=== PATIENT | female | born 1945 | race Native Hawaiian/Other Pacific Islander ===

== ENCOUNTER 2018-09-27 09:04 | Outpatient (CLI) | payer MEDICAID ==
--- NOTE | 2018-10-01 08:09 | DEXA Report ---
Reason: POST MENOPAUSAL Procedure Date: 09/27/2018 Accession Number: [id number] / [id number] Procedure: DEX - Dexa Spine and/or Hip CPT Code: FULL RESULT: EXAM: Dexa Spine and/or Hip DATE: 09/27/2018 9:29 AM CLINICAL HISTORY: POST MENOPAUSAL TECHNIQUE: Dual energy x-ray absorptiometry (DXA) was performed on a Nextance System. Regions measured are the AP Spine, femoral neck, and if needed forearm. COMPARISON: None. In accordance with the International Society for Clinical Densitometry (ISCD) guidelines, data from previous exams may be reanalyzed using current recommendations and techniques. This is done to allow a more accurate basis for comparison with the current study. FINDINGS: The data for the lumbar spine is as follows: BMD (g/cm/cm) T-SCORE Z-SCORE REGION L1 0.775 -3.0 L2 0.772 -3.6 L3 1.020 -1.5 L4 1.087 -0.9 TOTAL 0.920 -2.2 NOTE: All evaluable vertebrae are used for classification The data for the hip is as follows: BMD (g/cm/cm) T-SCORE Z-SCORE REGION Neck 0.699 -2.4 TOTAL 0.622 -3.1 NOTE: The femoral neck or total proximal femur, whichever is lowest, is used for classification. * Denotes significant change at the 95% confidence level. Denotes dissimilar scan types or analysis methods. IMPRESSION: THE WHO CLASSIFICATION BASED ON THE INTERNATIONAL REFERENCE STANDARD IS OSTEOPOROSIS. THE FRACTURE RISK IS HIGH. RECOMMENDATION: Patients with diagnosis of osteoporosis or osteopenia should have regular bone mineral density assessment. For those eligible for Medicare, routine testing is allowed once every 2 years. Testing frequency can be increased for patients who have rapidly progressing disease or for those who are receiving medical therapy to restore bone mass. COMMENT: World Health Organization (WHO) definitions for osteoporosis and osteopenia: NORMAL BMD: T-score at -1.0 or higher, fracture risk is low OSTEOPENIA BMD: T-score between -1.0 and -2.5, fracture risk is increased. OSTEOPOROSIS BMD: T-score at -2.5 or lower, fracture risk is high. National Osteoporosis Foundation recommends: 1. Obtain adequate dietary calcium (at least 1200 mg per day) and vitamin D (400-800 international units per day). 2. Participate, as appropriate, in regular weightbearing and muscle-strengthening exercise. 3. Avoid tobacco use and reduce alcohol and caffeine intake. 4. For more detailed information see the website at www.NOF.org.
== END 2018-09-27 09:05 | disposition home or self-care (01) ==
LOC: DI 09:04
PROVIDERS: ATTEND Family Medicine
DX: M81.0 Age-related osteoporosis without current pathological fracture (principal)
CPT/HCPCS: 77080

== ENCOUNTER 2019-12-23 16:53 | Outpatient (CLI) | payer MEDICAID | END 2019-12-23 16:54 | disposition EMS.NT | LOC: EMS 16:53 | PROVIDERS: ATTEND Surgery | DX: S09.93XA Unspecified injury of face, initial encounter (principal); W01.198A Fall on same level from slipping, tripping and stumbling with subsequent striking against other object, initial encounter; Y92.031 Bathroom in apartment as the place of occurrence of the external cause ==

== ENCOUNTER 2022-12-13 20:37 | Outpatient (CLI) | payer MEDICAID | END 2022-12-13 20:38 | disposition critical access hospital (66) | LOC: EMS 20:37 | DX: R44.1 Visual hallucinations (principal); R10.9 Unspecified abdominal pain | CPT/HCPCS: A0425; A0429; A0999 ==

== ENCOUNTER 2022-12-13 20:56 | Emergency (ER) | payer MEDICAID ==
--- NOTE | 2022-12-13 21:09 | ED Physician Documentation ---
PD HPI ALTERED MENTAL STATUS - Stated complaint Stated Complaint: ABD PX - History obtained from History obtained from: Family - Additional information Additional information: 77-year-old woman with diet-controlled diabetes, hypercholesterolemia is brought in by ambulance. She is accompanied shortly thereafter by her daughter. All of the history is from the daughter because the patient is altered. Reportedly developed significant agitation with both audio and visual hallucinations starting acutely at 5 PM. She was normal earlier in the day. Reportedly was complaining of chest and/or abdominal pain. She is unable to really answer questions at this point primarily. PD PAST MEDICAL HISTORY - Present Medications Home Medications: Ambulatory Orders Medication Instructions Recorded Confirmed Aspirin Chewable [St Austyn 81 mg PO DAILY 12/13/22 12/13/22 Aspirin] Atorvastatin [Lipitor] 20 mg PO QPM 12/13/22 12/13/22 Cholecalciferol [Vitamin D3] 125 mcg PO 12/13/22 - Allergies Allergies/Adverse Reactions: Allergies Allergy/AdvReac Type Severity Reaction Status Date / Time No Known Drug Allergies Allergy Verified 12/13/22 21:09 PD ED PE NORMAL - Vitals Vital signs reviewed: Yes - General General: Other (She is alert and talking, but her answers are nonsensical for example when asked her name she responds with her brother's name. She cannot state she is in the hospital nor any recent events.) - HEENT HEENT: PERRL, EOMI - Neck Neck: Supple, no meningeal sign, No bony TTP - Cardiac Cardiac: RRR, No murmur - Respiratory Respiratory: No respiratory distress, Clear bilaterally - Abdomen Abdomen: Normal bowel sounds, Soft, Non tender - Back Back: No CVA TTP, No spinal TTP - Derm Derm: No rash - Neuro Neuro: No motor deficit, No sensory deficit Eye Opening: Spontaneous Motor: Obeys Commands Verbal: Inappropriate GCS Score: 13 Results - Vitals Vitals: Vital Signs - 24 hr 12/13/22 12/13/22 21:04 21:09 Temperature 36.8 C Heart Rate 92 83 Respiratory 18 25 H Rate Blood Pressure 208/87 H 201/92 H O2 Saturation 100 100 Oxygen O2 Source Room air - EKG (time done) 2133 Rate: Rate (enter#) (81) Rhythm: NSR [place]: Normal Intervals: Normal [place] QRS: Normal Ischemia: Normal ST segments, Non specific changes. No: ST elevation c/w ischemia, ST depression - Labs Labs: Laboratory Tests 12/13/22 12/13/22 12/13/22 21:24 21:24 21:24 WBC 7.6 RBC 4.34 Hgb 13.8 Hct 39.4 MCV 90.8 MCH 31.8 H MCHC 35.0 RDW 12.4 Plt Count 173 MPV 9.6 Neut # (Auto) 4.4 Lymph # (Auto) 2.2 Lee # (Auto) 0.6 Eos # (Auto) 0.2 Baso # (Auto) 0.1 Absolute Nucleated RBC 0.00 Nucleated RBC % 0.0 Sodium 135 Potassium 3.4 L Chloride 96 L Carbon Dioxide 24 Anion Gap 15.0 H BUN 18 Creatinine 0.9 Estimated GFR (MDRD) 60 L Glucose 237 H Lactic Acid 2.4 H Calcium 9.4 Total Bilirubin 1.3 H AST 24 ALT 18 Alkaline Phosphatase 73 Total Protein 7.7 Albumin 4.2 Globulin 3.5 Albumin/Globulin Ratio 1.2 Lipase 29 TSH Urine Color Urine Clarity Urine pH Ur Specific [place] Urine Protein Urine Glucose (UA) Urine Ketones Urine Occult Blood Urine Nitrite Urine Bilirubin Urine Urobilinogen Ur Leukocyte Esterase Urine RBC Urine WBC Ur Squamous Epith Cells Urine Bacteria Ur Microscopic Review Urine Culture Comments Urine Opiates Screen Ur Oxycodone Screen Urine Methadone Screen Ur Propoxyphene Screen Ur Barbiturates Screen Ur Tricyclics Screen Ur Phencyclidine Scrn Ur Amphetamine Screen U Methamphetamines Scrn U Benzodiazepines Scrn Urine Cocaine Screen U Cannabinoids Screen Ethyl Alcohol < 5.0 12/13/22 12/13/22 12/13/22 21:24 23:12 23:12 WBC RBC Hgb Hct MCV MCH MCHC RDW Plt Count MPV Neut # (Auto) Lymph # (Auto) Lee # (Auto) Eos # (Auto) Baso # (Auto) Absolute Nucleated RBC Nucleated RBC % Sodium Potassium Chloride Carbon Dioxide Anion Gap BUN Creatinine Estimated GFR (MDRD) Glucose Lactic Acid Calcium Total Bilirubin AST ALT Alkaline Phosphatase Total Protein Albumin Globulin Albumin/Globulin Ratio Lipase TSH 0.97 Urine Color YELLOW Urine Clarity CLEAR Urine pH 7.5 Ur Specific [place] 1.010 Urine Protein 30 H Urine Glucose (UA) 100 H Urine Ketones NEGATIVE Urine Occult Blood SMALL H Urine Nitrite NEGATIVE Urine Bilirubin NEGATIVE Urine Urobilinogen 0.2 (NORMAL) Ur Leukocyte Esterase LARGE H Urine RBC 0-5 Urine WBC 6-10 H Ur Squamous Epith Cells FEW Squamous Urine Bacteria Moderate H Ur Microscopic Review INDICATED Urine Culture Comments INDICATED Urine Opiates Screen NEGATIVE Ur Oxycodone Screen NEGATIVE Urine Methadone Screen NEGATIVE Ur Propoxyphene Screen NEGATIVE Ur Barbiturates Screen NEGATIVE Ur Tricyclics Screen NEGATIVE Ur Phencyclidine Scrn NEGATIVE Ur Amphetamine Screen NEGATIVE U Methamphetamines Scrn NEGATIVE U Benzodiazepines Scrn NEGATIVE Urine Cocaine Screen NEGATIVE U Cannabinoids Screen NEGATIVE Ethyl Alcohol PD Medical Decision Making - ED course ED course: 77-year-old woman presents with an acute encephalopathy of unclear etiology associated with audiovisual hallucinations, hypertension, and reported complaints of chest and/or abdominal pain. Subsequent W/U with UA c/w UTI, Neg imaging, neg utox, Given encephalopahty/UTI needs. Admit. Rocephin ordered. Pt will be boarding in ED pending admit as no alyssa available in hospital, anticipate prolonged boarding d/t crisis. Care to overnight ED MD at 11pm shift chg. Departure - Departure Disposition: [facility] DC/Xfer Clinical Impression: Abdominal pain, Urinary tract infection, Cholelithiasis, Delirium, Chest pain Condition: Serious
[2022-12-13] MEDS ORDERED: iohexoL-300 100 ML VIAL ONE (21:23)
[2022-12-13 21:30] LABS: BASOPHILS # (AUTO) 0.1 10^3/uL (0.0-0.1); BASOPHILS % (AUTO) 0.8 %; EOSINOPHILS # (AUTO) 0.2 10^3/uL (0.0-0.7); EOSINOPHILS % (AUTO) 2.4 %; HCT - HEMATOCRIT 39.4 % (37.0-47.0); HGB - HEMOGLOBIN 13.8 g/dL (12.0-16.0); LYMPHOCYTES # (AUTO) 2.2 10^3/uL (1.5-3.5); LYMPHOCYTES % (AUTO) 29.7 %; MEAN CORPUSCULAR HEMOGLOBIN 31.8 pg (27.0-31.0); MEAN CORPUSCULAR VOLUME 90.8 fL (81.0-99.0); MEAN PLATELET VOLUME 9.6 fL (7.9-10.8); MONOCYTES # (AUTO) 0.6 10^3/uL (0.0-1.0); MONOCYTES % (AUTO) 8.1 %; NEUTROPHILS # (AUTO) 4.4 10^3/uL (1.5-6.6); NEUTROPHILS % (AUTO) 58.6 %; PLT - PLATELET COUNT 173 10^3/uL (130-450); RED BLOOD COUNT 4.34 10^6/uL (4.20-5.40); RED CELL DISTRIBUTION WIDTH 12.4 % (12.0-15.0); WHITE BLOOD COUNT 7.6 x10^3/uL (4.8-10.8)
[2022-12-13 21:47] LABS: ALBUMIN 4.2 g/dL (3.2-5.5); ALBUMIN/GLOBULIN RATIO 1.2 (1.0-2.2); ALKALINE PHOSPHATASE 73 IU/L (42-121); ALT ALANINE AMINOTRANSFERASE 18 IU/L (10-60); AST ASPARTATE AMINOTRANSFERASE 24 IU/L (10-42); BILIRUBIN,TOTAL 1.3 mg/dL (0.2-1.0); BUN - BLOOD UREA NITROGEN 18 mg/dL (6-20); CALCIUM 9.4 mg/dL (8.5-10.3); CARBON DIOXIDE - CO2 24 mmol/L (21-32); CHLORIDE 96 mmol/L (101-111); CREATININE 0.9 mg/dL (0.4-1.0); ETOH - ETHANOL < 5.0 mg/dL; GFR - MDRD 60 (>89); GLUCOSE 237 mg/dL (70-100); LIPASE 29 U/L (22-51); POTASSIUM 3.4 mmol/L (3.5-5.0); SODIUM 135 mmol/L (135-145); TOTAL PROTEIN 7.7 g/dL (6.7-8.2)
[2022-12-13] MEDS ORDERED: iohexoL-300 100 ML VIAL IVP ONE (22:36)
--- NOTE | 2022-12-13 23:03 | CT Report ---
PROCEDURE: HEAD WO INDICATIONS: AMS TECHNIQUE: Noncontrast 4.5 mm thick angled axial sections acquired from the foramen magnum to the vertex. For r adiation dose reduction, the following was used: automated exposure control, adjustment of mA and/or kV according to patient size. COMPARISON: None. FINDINGS: Image quality: Excellent. CSF spaces: There is mild to moderate cerebral volume loss with prominence of the ventricles and sul ci. Basal cisterns are patent. No extra-axial fluid collections. Brain: No intracranial hemorrhage, mass, or mass effect. There are small areas of cortical encephalo malacia within the right frontal lobe anteriorly as well as within the bilateral frontal lobes at the vertex. There are subcortical and periventricular white matter hypodensities consistent with mild ch ronic small vessel ischemic changes. Skull and face: Calvarium and visualized facial bones are intact, without suspicious lesions. Sinuses: Visualized sinuses and mastoids are clear. IMPRESSION: 1. No acute intracranial abnormality. 2. 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 Reviewed by: Joseph Arauz MD on 12/13/2022 11:02 PM PST Approved by: Joseph Arauz MD on 12/13/2022 11:02 PM PST Station ID: [id number]
[2022-12-13 23:25] LABS: MUDS CUTOFF CONCENTRATIONS CUTOFF CONC BELOW:
--- NOTE | 2022-12-13 23:26 | CT Report ---
PROCEDURE: ANGIO ABDOMEN W INDICATIONS: CHEST/ABD PAIN TECHNIQUE: After the administration of intravenous contrast, 3 mm axial images obtained through the a bdomen and pelvis with coronal and sagittal reformations. COMPARISON: Concurrent CT angiogram of the chest. FINDINGS: Aorta: The visualized lower thoracic and abdominal aorta are normal in caliber and contour without in timal flaps to suggest dissection. The celiac, superior mesenteric, and inferior mesenteric arteries are patent. Mild narrowing is demonstrated at the origin of the superior mesenteric artery. There ar e single renal arteries bilaterally which also appear patent. Mild narrowing is demonstrated at the origin of the left renal artery. The common, external, and internal iliac arteries appear patent. Th e common femoral and visualized proximal superficial femoral arteries appear patent with mild scatter ed atherosclerotic plaque. Lung bases: Unremarkable. Heart: Heart is normal in size. ABDOMEN: Liver: No mass lesion. Gallbladder:Multiple dependent calcified gallstones are demonstrated in the gallbladder. No gallblad simón wall thickening or pericholecystic fluid. Biliary ducts: No biliary ductal dilatation. Pancreas: Unremarkable. Spleen: Normal in size. Adrenal Glands:There is mild thickening of the adrenal glands. Kidneys and Ureters: No hydronephros is. Stomach and Bowel: Stomach and small bowel loops are normal in caliber and wall thickness. The appen margaret is normal in appearance. There is suggestion of anal wall thickening with evaluation limited on t he current study. Peritoneum: No abnormal intraperitoneal fluid. No free air. Ventral Wall: No hernia. Abdominal Nodes: No retroperitoneal or mesenteric adenopathy by size criteria. Vessels:Inferior vena cava is normal in size. PELVIS: Pelvic Organs: Unremarkable. Bladder:There is marked distention of the urinary bladder. Pelvic Nodes: No enlarged lymph nodes. Miscellaneous: No inguinal hernias. Bones: Visualized osseous structures demonstrate no suspicious lesions. IMPRESSION: 1. No evidence of aneurysm or dissection within the visualized aorta. 2. Mild narrowing of the origins of the superior mesenteric artery and left renal artery. 3. Cholelithiasis without CT evidence of cholecystitis. 4. Marked distention of the urinary bladder. Reviewed by: Joseph Cabral MD on 12/13/2022 11:35 PM PST Approved by: Joseph Cabral MD on 12/13/2022 11:35 PM PST Station ID: [id number]
[2022-12-13 23:31] LABS: BILIRUBIN,URINE NEGATIVE (NEGATIVE); GLUCOSE, URINE (UA) 100 mg/dL (NEGATIVE); KETONES,URINE (UA) NEGATIVE (NEGATIVE); LEUKOCYTE ESTERASE, URINE LARGE (NEGATIVE); NITRITE,URINE NEGATIVE (NEGATIVE); OCCULT BLOOD,URINE SMALL (NEGATIVE); PH,URINE 7.5 PH (5.0-7.5); PROTEIN,URINE 30 mg/dL (NEGATIVE); UROBILINOGEN,URINE 0.2 (NORMAL) E.U./dL (NORMAL)
[2022-12-13 23:34] LABS: CLARITY,URINE CLEAR (CLEAR)
[2022-12-13 23:35] LABS: BACTERIA,URINE Moderate /HPF (None Seen); RBC,URINE 0-5 /HPF (0-5); SQUAMOUS EPITHELIAL CELL,UR FEW Squamous (<= Few)
--- NOTE | 2022-12-13 23:39 | CT Report ---
PROCEDURE: ANGIO CHEST W/WO INDICATIONS: CHEST/ABD PAIN, AORTA PROTOCOL CONTRAST: Omni 300 100ml TECHNIQUE: After the administration of intravenous contrast, 2 mm axial images were acquired from the pulmonary apices to the posterior costophrenic angles during the arterial phase. In addition, 1 mm lung kernel and 5 mm soft tissue kernel reconstructions were performed. 3-dimensional coronal oblique maximum int ensity projection (MIP) reformats, 8 mm axial MIP, and 5 mm coronal and sagittal MPR reformats were t hen performed through the thorax. For radiation dose reduction, the following was used: automated exp osure control, adjustment of mA and/or kV according to patient size. COMPARISON: Concurrent CTA of the abdomen FINDINGS: Image quality: Excellent. Aorta: Noncontrast images demonstrate no evidence of intramural hematoma. The aorta is normal in efra iber and contour without intimal flaps to suggest dissection. There is conventional branching of the aortic arch. The visualized great vessels are normal in caliber and appear patent. Lower Neck: No lymphadenopathy by size criteria. Thyroid: Visualized thyroid demonstrates demonstrate a few small bilateral hypoattenuating nodules a s well as a a few small calcified nodules. Axillae: No lymphadenopathy by size criteria. Chest Wall: Unremarkable. Bones: Visualized osseous structures demonstrate no suspicious lesions. Lungs and Airways: No acute consolidation. No suspicious pulmonary nodules. The trachea and central airways are patent. Pleura: No pneumothorax or pleural effusions. Heart: Heart size is normal. No pericardial effusion. Thoracic Vessels: The pulmonary arteries are normal in size and demonstrate no filling defects to sug gest pulmonary embolism. Mediastinum and Giulia: No lymphadenopathy by size criteria. Esophagus: No wall thickening. No hiatal hernia. Abdomen: Visualized upper abdomen demonstrates multiple calcified gallstones in the partially visual ized gallbladder. No associated gallbladder wall thickening. IMPRESSION: 1. No evidence of aortic aneurysm or dissection. 2. No evidence of pulmonary embolism. 3. No acute airspace consolidation. Reviewed by: Joseph Arauz MD on 12/13/2022 11:48 PM PST Approved by: Joseph Arauz MD on 12/13/2022 11:48 PM PST Station ID: [id number]
[2022-12-13 23:41] LABS: AMPHETAMINE SCREEN,URINE NEGATIVE (NEGATIVE); BARBITURATE SCREEN,UR NEGATIVE (NEGATIVE); BENZODIAZEPINES SCREEN, URINE NEGATIVE (NEGATIVE); COCAINE SCREEN URINE NEGATIVE (NEGATIVE); METHADONE SCREEN, URINE NEGATIVE (NEGATIVE); METHAMPHETAMINES SCREEN, URINE NEGATIVE (NEGATIVE); OPIATE SCREEN, URINE NEGATIVE (NEGATIVE); OXYCODONE SCREEN, URINE NEGATIVE (NEGATIVE); PROPOXYPHENE SCREEN, URINE NEGATIVE (NEGATIVE); THC CANNABINOID SCREEN, URINE NEGATIVE (NEGATIVE); TRICYCLIC ANTIDEPRESSANT,URINE NEGATIVE (NEGATIVE)
[2022-12-13] MEDS ORDERED: cefTRIAXone 1 GM VIAL IVP STA (23:48)
[2022-12-13] MEDS ORDERED: ONDANSETRON 4 MG/2 ML VIAL IVP PRN (23:49)
[2022-12-13] MEDS ORDERED: ACETAMINOPHEN 500 MG TABLET PO PRN (23:49)
--- NOTE | 2022-12-14 00:16 | ED Physician Documentation ---
ED Addendum - Addendum Addendum: 12/14/22 00:11 Patient endorsed me by Dr. Mancini pending results of CTA chest/a/p and urinalysis. U/a showing signs of infection. Rocephin provided and patient will be admitted to hospital for encephalopathy and uti with leukocytosis. Per daughter, AMS is still present. Patient calm, lying in bed resting in NAD. Discussed incidental findings on CT. Plan to admit but there are no beds available at this time. Patient will board in ED for now. Disposition: admit med surg [facility] Condition serious Impression: 1. AMS 2. uti 3. cholelithiasis 4. hypertension 12/14/22 00:15
[2022-12-14 06:15] LABS: BASOPHILS # (AUTO) 0.1 10^3/uL (0.0-0.1); BASOPHILS % (AUTO) 0.8 %; EOSINOPHILS # (AUTO) 0.2 10^3/uL (0.0-0.7); EOSINOPHILS % (AUTO) 1.7 %; HCT - HEMATOCRIT 38.8 % (37.0-47.0); HGB - HEMOGLOBIN 13.3 g/dL (12.0-16.0); LYMPHOCYTES # (AUTO) 2.1 10^3/uL (1.5-3.5); LYMPHOCYTES % (AUTO) 23.9 %; MEAN CORPUSCULAR HEMOGLOBIN 31.3 pg (27.0-31.0); MEAN CORPUSCULAR HGB CONC 34.3 g/dL (32.0-36.0); MEAN CORPUSCULAR VOLUME 91.3 fL (81.0-99.0); MEAN PLATELET VOLUME 9.9 fL (7.9-10.8); MONOCYTES # (AUTO) 0.7 10^3/uL (0.0-1.0); MONOCYTES % (AUTO) 7.9 %; NEUTROPHILS # (AUTO) 5.8 10^3/uL (1.5-6.6); NEUTROPHILS % (AUTO) 65.5 %; PLT - PLATELET COUNT 166 10^3/uL (130-450); RED BLOOD COUNT 4.25 10^6/uL (4.20-5.40); RED CELL DISTRIBUTION WIDTH 12.6 % (12.0-15.0); WHITE BLOOD COUNT 8.9 x10^3/uL (4.8-10.8)
[2022-12-14 06:22] LABS: CALCIUM 9.1 mg/dL (8.5-10.3); CREATININE 0.7 mg/dL (0.4-1.0); POTASSIUM 3.3 mmol/L (3.5-5.0)
[2022-12-14] MEDS ORDERED: PANTOPRAZOLE 40 MG TABLET PO SCH (07:00)
--- NOTE | 2022-12-14 07:21 | ED Physician Documentation ---
ED Addendum - Addendum Addendum: 12/14/22 07:15 Note that patient is now AOX4, speaking in setswana and conversant with staff. Plan to dc home with outpatient antibiotics for UTI now that encephalopathy has resolved. Impression 1. uti 2. cholelithiasis Condition good Disposition home 12/14/22 07:20
[2022-12-14] MEDS ORDERED: MULTIVITAMIN TABLET PO SCH (08:00)
[2022-12-14] MEDS ORDERED: cefTRIAXone 1 GM VIAL ONE (08:09)
[2022-12-14 08:22] VITALS: BP 146/106
[2022-12-14] MEDS ORDERED: cefTRIAXone 1 GM in SODIUM CHLORIDE 0.9% MINIBAG 100 ML IV SCH (09:00)
[2022-12-14] MEDS ORDERED: ENOXAPARIN 40 MG/0.4 ML SYRINGE SUBQ SCH (09:00)
== END 2022-12-14 10:25 | disposition home or self-care (01) ==
LOC: EDUNIT# → ED 20:56
DX: N39.0 Urinary tract infection, site not specified (principal); K80.20 Calculus of gallbladder without cholecystitis without obstruction; R41.0 Disorientation, unspecified; R07.9 Chest pain, unspecified; R10.9 Unspecified abdominal pain; I10 Essential (primary) hypertension
CPT/HCPCS: 36415; 70450; 71275; 74175; 80048; 80053; 80306; 80320; 81001; 83605; 83690; 84443; 85025; 87040; 87086; 93005; 96365; 96376; 99284; A9270; Q9967; 81003

== ENCOUNTER 2023-05-11 09:18 | Outpatient (CLI) | payer MEDICAID ==
[2023-05-11 11:58] LABS: BASOPHILS # (AUTO) 0.1 10^3/uL (0.0-0.1); BASOPHILS % (AUTO) 0.7 %; EOSINOPHILS # (AUTO) 0.1 10^3/uL (0.0-0.7); EOSINOPHILS % (AUTO) 0.5 %; HCT - HEMATOCRIT 41.5 % (37.0-47.0); HGB - HEMOGLOBIN 14.3 g/dL (12.0-16.0); LYMPHOCYTES # (AUTO) 2.9 10^3/uL (1.5-3.5); LYMPHOCYTES % (AUTO) 30.9 %; MEAN CORPUSCULAR HEMOGLOBIN 31.2 pg (27.0-31.0); MEAN CORPUSCULAR HGB CONC 34.5 g/dL (32.0-36.0); MEAN CORPUSCULAR VOLUME 90.4 fL (81.0-99.0); MEAN PLATELET VOLUME 10.2 fL (7.9-10.8); MONOCYTES # (AUTO) 0.5 10^3/uL (0.0-1.0); MONOCYTES % (AUTO) 5.4 %; NEUTROPHILS # (AUTO) 5.8 10^3/uL (1.5-6.6); NEUTROPHILS % (AUTO) 62.2 %; PLT - PLATELET COUNT 195 10^3/uL (130-450); RED BLOOD COUNT 4.59 10^6/uL (4.20-5.40); RED CELL DISTRIBUTION WIDTH 12.3 % (12.0-15.0); WHITE BLOOD COUNT 9.3 x10^3/uL (4.8-10.8)
[2023-05-11 12:20] LABS: BILIRUBIN,URINE NEGATIVE (NEGATIVE); GLUCOSE, URINE (UA) NEGATIVE (NEGATIVE); KETONES,URINE (UA) NEGATIVE (NEGATIVE); LEUKOCYTE ESTERASE, URINE SMALL (NEGATIVE); NITRITE,URINE NEGATIVE (NEGATIVE); OCCULT BLOOD,URINE SMALL (NEGATIVE); PROTEIN,URINE 30 mg/dL (NEGATIVE); UROBILINOGEN,URINE 0.2 (NORMAL) E.U./dL (NORMAL)
[2023-05-11 12:22] LABS: BACTERIA,URINE Few /HPF (None Seen); CLARITY,URINE HAZY (CLEAR); SQUAMOUS EPITHELIAL CELL,UR MOD Squamous (<= Few)
[2023-05-11 12:33] LABS: ALBUMIN 4.3 g/dL (3.2-5.5); ALBUMIN/GLOBULIN RATIO 1.2 (1.0-2.2); ALKALINE PHOSPHATASE 75 IU/L (42-121); ALT ALANINE AMINOTRANSFERASE 19 IU/L (10-60); AST ASPARTATE AMINOTRANSFERASE 30 IU/L (10-42); BILIRUBIN,TOTAL 1.2 mg/dL (0.2-1.0); BUN - BLOOD UREA NITROGEN 20 mg/dL (6-20); CALCIUM 9.4 mg/dL (8.5-10.3); CARBON DIOXIDE - CO2 28 mmol/L (21-32); CHLORIDE 97 mmol/L (101-111); CHOL/HDL RATIO 2.9 (<4.4); CHOLESTEROL 166 mg/dL; GFR - MDRD 53 (>89); GLUCOSE 205 mg/dL (70-100); HDL CHOLESTEROL 58 mg/dL; LDL CHOLESTEROL,CALCULATED 94 mg/dL; LDL/HDL RATIO 1.6 (<4.4); POTASSIUM 4.1 mmol/L (3.5-5.0); SODIUM 135 mmol/L (135-145); TOTAL PROTEIN 7.8 g/dL (6.7-8.2); TRIGLYCERIDES 71 mg/dL; VLDL CHOLESTEROL 14 mg/dL
[2023-05-11 12:36] LABS: CRP - C-REACTIVE PROTEIN < 1.0 mg/dL (0-1.0)
[2023-05-11 12:39] LABS: ESTIMATED AVERAGE GLUCOSE 169 mg/dL (70-100); HEMOGLOBIN A1c% 7.5 % (4.27-6.07)
[2023-05-11 12:43] LABS: CREATININE,URINE 99.6 mg/dL; MICROALBUM/CREATININE RATIO,UR 319.3 ug/mg (<30.0); MICROALBUMIN,URINE 31.8 mg/dL (0-300.0)
[2023-05-11 12:47] LABS: THYROID STIMULATING HORMONE 0.1 uIU/mL (0.34-5.60)
[2023-05-11 12:49] LABS: FREE T4 (FREE THYROXINE) 1.46 ng/dL (0.58-1.64)
== END 2023-05-11 09:19 | disposition home or self-care (01) ==
LOC: LAB.N 09:18
PROVIDERS: ATTEND Nurse Practitioner
DX: E11.9 Type 2 diabetes mellitus without complications (principal); R53.83 Other fatigue; Z13.220 Encounter for screening for lipoid disorders; R63.4 Abnormal weight loss; N32.89 Other specified disorders of bladder
CPT/HCPCS: 36415; 80053; 80061; 80069; 81001; 81003; 82043; 82570; 82607; 83036; 83721; 84439; 84443; 85025; 85651; 86140; 87086

== ENCOUNTER 2023-06-04 08:00 | Outpatient (CLI) | payer MEDICAID ==
[2023-06-04 23:16] LABS: GLUCOSE, URINE (UA) >=1000 mg/dL (NEGATIVE); KETONES,URINE (UA) 15 mg/dL (NEGATIVE); LEUKOCYTE ESTERASE, URINE NEGATIVE (NEGATIVE); NITRITE,URINE NEGATIVE (NEGATIVE); OCCULT BLOOD,URINE TRACE-INTA (NEGATIVE); PROTEIN,URINE TRACE mg/dL (NEGATIVE); UROBILINOGEN,URINE 1 (NORMAL) E.U./dL (NORMAL)
[2023-06-04 23:34] LABS: BILIRUBIN,URINE NEGATIVE (NEGATIVE); CLARITY,URINE CLEAR (CLEAR); ICTOTEST,URINE NEGATIVE
[2023-06-04 23:35] LABS: BACTERIA,URINE Many /HPF (None Seen); RBC,URINE 0-5 /HPF (0-5); SQUAMOUS EPITHELIAL CELL,UR FEW Squamous (<= Few)
== END 2023-06-04 23:59 | disposition home or self-care (01) ==
LOC: LAB.R 08:00
PROVIDERS: ATTEND Registered Nurse
DX: N39.0 Urinary tract infection, site not specified (principal)
CPT/HCPCS: 81001; 87086

== ENCOUNTER 2023-06-05 14:37 | Outpatient (CLI) | payer MEDICAID | END 2023-06-05 23:59 | disposition critical access hospital (66) | LOC: EMS 14:37 | DX: R62.7 Adult failure to thrive (principal); R11.10 Vomiting, unspecified | CPT/HCPCS: A0425; A0429 ==

== ENCOUNTER 2023-06-05 14:44 | Inpatient (IN) | payer MEDICAID ==
[2023-06-05] MEDS ORDERED: SODIUM CHLORIDE 0.9% 1,000 ML IV STA (14:51)
--- NOTE | 2023-06-05 14:51 | ED Physician Documentation ---
PD HPI ABD PAIN - Stated complaint Stated Complaint: FTT - Chief complaint Chief Complaint: Abd Pain - History obtained from History obtained from: EMS - Additional information Additional information: 77-year-old woman presents by ambulance for "failure to thrive." Looks like she went to [facility] on May 26 per EMS report after a fall. And had a hip fracture and was repaired there. Transferred to [facility] for SNF care on the of this month. Reportedly for the last several days has been listless, vomiting after eating and not eating much at all. All of the initial history is from EMS as the patient is encephalopathic PD PAST MEDICAL HISTORY - Present Medications Home Medications: Ambulatory Orders Medication Instructions Recorded Confirmed Aspirin Chewable [St Austyn 81 mg PO DAILY 12/13/22 12/13/22 Aspirin] Atorvastatin [Lipitor] 20 mg PO QPM 12/13/22 12/13/22 Cholecalciferol [Vitamin D3] 125 mcg PO 12/13/22 Cefpodoxime Proxetil [Vantin] 200 mg PO Q12H #28 tablet 12/14/22 - Allergies Allergies/Adverse Reactions: Allergies Allergy/AdvReac Type Severity Reaction Status Date / Time No Known Drug Allergies Allergy Verified 12/13/22 21:09 - Social History Does the pt smoke?: No Smoking Status: Never smoker Does the pt drink ETOH?: No Does the pt have substance abuse?: No - Immunizations Immunizations are current?: Yes - POLST Patient has POLST: No PD ED PE NORMAL - Vitals Vital signs reviewed: Yes - General General: Other (. She is listless but makes eye contact and will say her name. Otherwise not following commands or otherwise oriented or able to give any other history.) - HEENT HEENT: PERRL, EOMI, Other (Very dry mucous membranes) - Neck Neck: Supple, no meningeal sign, No bony TTP - Cardiac Cardiac: RRR (Borderline resting tachycardia with no murmur), No murmur - Respiratory Respiratory: No respiratory distress, Clear bilaterally - Abdomen Abdomen: Non tender - Female Female : Other (Williamson catheter in place draining cloudy urine, surgical dressing on the left hip without significant pain with passive range of motion.) - Derm Derm: Normal color, Warm and dry - Extremities Extremities: No edema, No calf tenderness / cord - Neuro Eye Opening: Spontaneous Motor: Localizes to Pain Verbal: Confused GCS Score: 13 Results - Vitals Vitals: Vital Signs - 24 hr 06/05/23 06/05/23 06/05/23 14:47 15:25 17:19 Temperature 36.9 C Heart Rate 96 91 101 H Respiratory 20 19 18 Rate Blood Pressure 168/76 H O2 Saturation 99 98 94 Oxygen O2 Source Room air - EKG (time done) 1452 EKG releavant findings:: EKG personally interpreted by author of this note. Relevant findings are: Rate: Rate (enter#) (94) Rhythm: NSR [place]: Normal Intervals: Normal [place] Ischemia: Non specific changes. No: ST elevation c/w ischemia, ST depression - Labs Labs: Laboratory Tests 06/05/23 06/05/23 06/05/23 15:02 15:02 15:02 WBC 24.1 H RBC 3.17 L Hgb 9.8 L Hct 29.4 L MCV 92.7 MCH 30.9 MCHC 33.3 RDW 13.2 Plt Count 395 MPV 9.2 Neut # (Auto) Not Reportable Lymph # (Auto) Not Reportable [place] # (Auto) Not Reportable Eos # (Auto) Not Reportable Baso # (Auto) Not Reportable Absolute Nucleated RBC Not Reportable Total Counted 100 Band Neuts % (Manual) 0 Abnorm Lymph % (Manual) 0 Nucleated RBC % Not Reportable Neutrophils # (Manual) 21.7 H Lymphocytes # (Manual) 1.2 L Monocytes # (Manual) 1.2 H Eosinophils # (Manual) 0.0 Basophils # (Manual) 0.0 Differential Comment MANUAL DIFFERENTIAL WBC Morphology NORMAL APPEARANCE Platelet Estimate NORMAL (130-450,000) Platelet Morphology NORMAL APPEARANCE RBC Morph Micro Appear NORMAL APPEARANCE Sodium 148 H Potassium 2.8 L Chloride 102 Carbon Dioxide 28 Anion Gap 18.0 H BUN 36 H Creatinine 0.9 Estimated GFR (MDRD) 60 L Glucose 369 H Lactic Acid 1.7 Calcium 9.3 Total Bilirubin 1.1 H AST 18 ALT 14 Alkaline Phosphatase 92 Total Protein 6.7 Albumin 3.3 Globulin 3.4 Albumin/Globulin Ratio 1.0 Urine Color Urine Clarity Urine pH Ur Specific [place] Urine Protein Urine Glucose (UA) Urine Ketones Urine Occult Blood Urine Nitrite Urine Bilirubin Urine Urobilinogen Ur Leukocyte Esterase Urine RBC Urine WBC Ur Squamous Epith Cells Urine Bacteria Urine Culture Comments 06/05/23 15:45 WBC RBC Hgb Hct MCV MCH MCHC RDW Plt Count MPV Neut # (Auto) Lymph # (Auto) [place] # (Auto) Eos # (Auto) Baso # (Auto) Absolute Nucleated RBC Total Counted Band Neuts % (Manual) Abnorm Lymph % (Manual) Nucleated RBC % Neutrophils # (Manual) Lymphocytes # (Manual) Monocytes # (Manual) Eosinophils # (Manual) Basophils # (Manual) Differential Comment WBC Morphology Platelet Estimate Platelet Morphology RBC Morph Micro Appear Sodium Potassium Chloride Carbon Dioxide Anion Gap BUN Creatinine Estimated GFR (MDRD) Glucose Lactic Acid Calcium Total Bilirubin AST ALT Alkaline Phosphatase Total Protein Albumin Globulin Albumin/Globulin Ratio Urine Color YELLOW Urine Clarity CLOUDY Urine pH 5.0 Ur Specific [place] 1.025 Urine Protein 30 H Urine Glucose (UA) >=1000 H Urine Ketones 40 H Urine Occult Blood MODERATE H Urine Nitrite NEGATIVE Urine Bilirubin NEGATIVE Urine Urobilinogen 1 (NORMAL) Ur Leukocyte Esterase TRACE H Urine RBC 6-10 H Urine WBC >25 H Ur Squamous Epith Cells FEW Squamous Urine Bacteria Many H Urine Culture Comments INDICATED - Rads (name of study) CT of the head shows moderate atrophy and chronic microvascular ischemic changes without acute findings. Relevant Findings:: Final report received, EMP independent interpretation of test PD Medical Decision Making - ED course Complexity details: reviewed old records (Discharge summary and ED notes from [facility] received and reviewed. When she checked and she was significantly hyponatremic at 120. She had an intertrochanteric left hip fracture.) ED course: 77-year-old woman with recent admission for hip fracture and repair presents with an acute encephalopathy. It is associated with vomiting and poor appetite per the family and EMS reports. She is kind of listless and minimally interactive with me. Vital signs show borderline resting tachycardia, she is afebrile. Really nothing on exam other than the encephalopathy. Initial work- up shows a CBC with a white count of 24,000 and a normocytic anemia, possibly postoperative. CMP showing hypernatremia and hypokalemia with elevated BUN consistent with volume depletion and hyperglycemia. Lactate was normal. She was hydrated initially with saline and this was switched over to LR once her sodium was resulted given the lower sodium level In LR compared to saline or Plasma-Lyte even. Given the white count infection was strongly presumed and she was put on Zosyn given the concern for sepsis. Note I did not use Rocephin as she was receiving LR at the time CT of the head and abdomen were showing cholelithiasis and some gastric wall thickening and other chronic findings. I did not pursue a right upper quadrant ultrasound given the lack of right upper quadrant tenderness or significant elevation of her liver enzymes. Urinalysis positive and spoke with Dr. Ribera for admission for UTI with encephalopathy and possible sepsis at 4:49 PM. Departure - Departure Disposition: [facility] DC/Xfer Clinical Impression: Urinary tract infection, Encephalopathy acute Condition: Serious Discharge Date/Time: 06/05/23 18:27
[2023-06-05 15:14] LABS: BASOPHILS % (AUTO) 0.3 %; HCT - HEMATOCRIT 29.4 % (37.0-47.0); HGB - HEMOGLOBIN 9.8 g/dL (12.0-16.0); LYMPHOCYTES % (AUTO) 4.4 %; MEAN CORPUSCULAR HEMOGLOBIN 30.9 pg (27.0-31.0); MEAN CORPUSCULAR HGB CONC 33.3 g/dL (32.0-36.0); MEAN CORPUSCULAR VOLUME 92.7 fL (81.0-99.0); MEAN PLATELET VOLUME 9.2 fL (7.9-10.8); MONOCYTES % (AUTO) 3.4 %; NEUTROPHILS % (AUTO) 90.3 %; PLT - PLATELET COUNT 395 10^3/uL (130-450); RED BLOOD COUNT 3.17 10^6/uL (4.20-5.40); RED CELL DISTRIBUTION WIDTH 13.2 % (12.0-15.0); WHITE BLOOD COUNT 24.1 x10^3/uL (4.8-10.8)
[2023-06-05 15:16] LABS: ABNORMAL LYMPHS % (MANUAL) 0 %; BAND NEUTROPHILS % (MANUAL) 0 %
[2023-06-05 15:25] LABS: ALBUMIN 3.3 g/dL (3.2-5.5)
[2023-06-05 15:31] LABS: BILIRUBIN,TOTAL 1.1 mg/dL (0.2-1.0); CALCIUM 9.3 mg/dL (8.5-10.3); CREATININE 0.9 mg/dL (0.6-1.3); POTASSIUM 2.8 mmol/L (3.5-4.5); TOTAL PROTEIN 6.7 g/dL (6.4-8.9)
[2023-06-05] MEDS ORDERED: POTASSIUM CHLOR 10 MEQ/100 ML 10 MEQ/100 ML BAG IV STA (15:32)
[2023-06-05] MEDS ORDERED: iohexoL-300 100 ML VIAL ONE (15:42)
--- NOTE | 2023-06-05 15:48 | XRAY Report ---
PROCEDURE: Chest 1 View X-Ray INDICATIONS: ams TECHNIQUE: One view of the chest was acquired. COMPARISON: None. FINDINGS: Surgical changes and devices: None. Lungs and pleura: No dense consolidation or pleural effusion. Mediastinum: Mediastinal contours appear normal. Heart size is normal. Bones and chest wall: No suspicious bony lesions. Overlying soft tissues appear unremarkable. IMPRESSION: No acute radiographic abnormality. Reviewed by: David Collazo MD on 06/05/2023 3:16 PM PDT Approved by: David Collazo MD on 06/05/2023 3:16 PM PDT Station ID: [id number]
[2023-06-05 15:49] LABS: LYMPHOCYTES # (MANUAL) 1.2 10^3/uL (1.5-3.5); LYMPHOCYTES % (MANUAL) 5 %; MONOCYTES # (MANUAL) 1.2 10^3/uL (0.0-1.0); NEUTROPHILS # (MANUAL) 21.7 10^3/uL (1.5-6.6)
[2023-06-05] MEDS ORDERED: PIPERACILLIN/TAZOBACTAM 3.375 GM in SODIUM CHLORIDE 0.9% MINIBAG 100 ML IV STA (15:49)
[2023-06-05 15:50] LABS: DIFFERENTIAL COMMENT MANUAL DIFFERENTIAL; PLATELET ESTIMATE, MANUAL NORMAL (130-450,000) (NORMAL); PLATELET MORPHOLOGY NORMAL APPEARANCE (NORMAL); RBC MORPHOLOGY (MULTIPLE) NORMAL APPEARANCE (NORMAL); WBC MORPHOLOGY (MULTIPLE) NORMAL APPEARANCE (NORMAL)
[2023-06-05 15:54] LABS: GLUCOSE, URINE (UA) >=1000 mg/dL (NEGATIVE); KETONES,URINE (UA) 40 mg/dL (NEGATIVE); LEUKOCYTE ESTERASE, URINE TRACE (NEGATIVE); NITRITE,URINE NEGATIVE (NEGATIVE); OCCULT BLOOD,URINE MODERATE (NEGATIVE); PROTEIN,URINE 30 mg/dL (NEGATIVE); UROBILINOGEN,URINE 1 (NORMAL) E.U./dL (NORMAL)
[2023-06-05 15:58] LABS: BILIRUBIN,URINE NEGATIVE (NEGATIVE); CLARITY,URINE CLOUDY (CLEAR); ICTOTEST,URINE NEGATIVE
[2023-06-05] MEDS ORDERED: LACTATED RINGERS 1,000 ML IV SCH (16:00)
[2023-06-05 16:04] LABS: BACTERIA,URINE Many /HPF (None Seen); SQUAMOUS EPITHELIAL CELL,UR FEW Squamous (<= Few); WBC,URINE >25 /HPF (0-5)
[2023-06-05] MEDS ORDERED: iohexoL-300 100 ML VIAL IVP ONE (16:08)
--- NOTE | 2023-06-05 16:18 | CT Report ---
PROCEDURE: HEAD WO INDICATIONS: altered TECHNIQUE: Noncontrast 4.5 mm thick angled axial sections acquired from the foramen magnum to the vertex. For r adiation dose reduction, the following was used: automated exposure control, adjustment of mA and/or kV according to patient size. COMPARISON: None. FINDINGS: Image quality: Excellent. The ventricular system and cortical sulci demonstrate atrophy, consistent for patient's stated age. There are areas of hypodensity in the periventricular and subcortical white matter. There is no acut e intra or extra-axial fluid collection. No acute hemorrhage, mass lesion or midline shift. Brainst em is unremarkable. Globes are symmetrical. Sinuses are aerated. Osseous structures are intact. IMPRESSION: 1. No acute intracranial process. 2. Moderate atrophy and chronic microvascular ischemic changes. Reviewed by: Arielle Ortiz MD on 06/05/2023 4:17 PM PDT Approved by: Arielle Ortiz MD on 06/05/2023 4:17 PM PDT Station ID: [id number]
--- NOTE | 2023-06-05 16:39 | CT Report ---
PROCEDURE: ABDOMEN/PELVIS W INDICATIONS: iv only, vomiting CONTRAST: 100ml Omni 300 TECHNIQUE: After the administration of IV contrast, 5 mm thick sections acquired from the diaphragms to the symp hysis. 5 mm thick coronal and sagittal reformats were acquired. For radiation dose reduction, the f ollowing was used: automated exposure control, adjustment of mA and/or kV according to patient size. COMPARISON: 12/13/2022 FINDINGS: Image quality: Good Lower chest: Basal atelectasis. Nonspecific mild distal esophageal wall thickening, with patulous radames earance. There are coronary calcifications. Solid organs: Liver is unremarkable. Cholelithiasis and distention. Consider correlation with ultraso und if there are right upper quadrant symptoms. No pathologic dilation of the biliary tree or pancrea tic duct. No splenomegaly. No adrenal nodules. No hydronephrosis. Vessels and lymph nodes: Main portal vein is patent. No pathologic adenopathy by size criteria. Ather osclerotic calcifications of the aorta and its branches. Bowel and peritoneum: No evidence of small bowel obstruction. Mild to moderate rectal wall thickening . No pathologic ascites or drainable abscess. Nondilated appendix. Mild gastric wall thickening. Body wall: Mild anasarca. Pelvis: Not well seen due to metallic artifact. A Williamson is in place. Left pelvic wall postoperative c hanges. Bones: Left hip arthroplasty. Scattered small sclerotic lesions likely bone islands. Degenerative siddhartha nges. IMPRESSION: No evidence of small bowel obstruction. Mild gastric wall thickening, possibly infectious or inflamma tory gastritis. There is also moderate rectal wall thickening, likely also infectious/inflammatory. C onsider correlation with age-appropriate colonoscopy results. Cholelithiasis with distended gallbladder, consider correlation with ultrasound if there are right up per quadrant symptoms. Other findings as above, likely nonacute. Reviewed by: David Collazo MD on 06/05/2023 4:37 PM PDT Approved by: David Collazo MD on 06/05/2023 4:37 PM PDT Station ID: [id number]
--- NOTE | 2023-06-05 17:42 | HISTORY & PHYSICAL EXAMINATION ---
Chief Complaint - Chief Complaint Chief Complaint: Altered mental status, sent in from [facility] History of Present Illness - Admitted From Admitted From:: ED - History Obtained From History obtained from: ED provider and the patient's daughter at bedside - History of Present Illness HPI Comment/Other: This is a 77-year-old female with history of dementia (worse over the last 4 mos, per the daughter), and Hx of diabetes, who fell and broke her hip several weeks ago, and had it repaired at [facility], where she was hospitalized from May 26 to May 31 and was discharged from [facility] with a Gilmore catheter due to urinary retntion (per the daughter), and sent to [facility] for rehab. Over the last 1-2 days she has become more listless, has had 4 days of a poor appetite, has had no fever or cough, has mostly been sleeping. Because of being more obtunded, the staff of [facility] sent her in to our ER. She had no specific complaints and was minimally communicative in the ER. Patient speaks no [place]an but daughter was at bedside and confirmed to our ED provider that this is not her mother's usual mental status. Blood pressure was stable and heart rate was 99. Work-up showed an elevated WBC of 24, normal lactic acid level, high sodium of 148, low potassium of 2.8, elevated BUN/creatinine of 36/1.0. Her glucose was 369. She had an abnormal urinalysis with many WBC and many bacteria seen. A head CT was done that showed no trauma or acute findings. A CT abdomen was done that showed gallstones present but otherwise unremarkable. The patient had blood cultures drawn, IV Lactated Ringer's started, and received a dose of Zosyn IV antibiotic. The ED provider then spoke to me about admitting her to the Hospitalist service. She will be admitted for a UTI causing altered mental status, hypernatremia from dehydration, hypokalemia, prerenal azotemia, with new Gilmore in place after hip surgery. I spoke to the daughter about the patient's CODE status and she said the patient is a Full Code. History - Past Medical History Cardiovascular: reports: Hypertension Neuro: reports: Dementia Endocrine/Autoimmune: reports: Type 2 diabetes : reports: Other (Has a Gilmore for the past few weeks placed for urinary retention.) MRSA Hx?: No Other Past Medical History: Hx. of urogenital implants and retention, with gilmore. - Past Surgical History Ortho: reports: Hip replacement - Family & Social History Family History: Sister: Alzheimer's Disease Living arrangement: skilled nursing (Currently at SNF) Social History Notes: She never smoked in her life and drinks no alcohol. - Substance History Use: Uses substance without health or social issues: NONE - POLST Patient has POLST: No Meds/Allgy - Home Medications Home Medications: Ambulatory Orders Medication Instructions Recorded Confirmed Aspirin Chewable [St Austyn 81 mg PO DAILY 12/13/22 12/13/22 Aspirin] Atorvastatin [Lipitor] 20 mg PO QPM 12/13/22 12/13/22 Cholecalciferol [Vitamin D3] 125 mcg PO 12/13/22 Cefpodoxime Proxetil [Vantin] 200 mg PO Q12H #28 tablet 12/14/22 - Allergies Allergies/Adverse Reactions: Allergies Allergy/AdvReac Type Severity Reaction Status Date / Time No Known Drug Allergies Allergy Verified 12/13/22 21:09 Review of Systems - All Other Systems All Other Systems: reports: Other (Unable to obtain since the patient is obtunded and also since she does not speak [place]an and there is no family available) Exam - Vital Signs Vital Signs: Vital Signs x48h Temp Pulse Resp BP Pulse Ox 06/05/23 17:19 101 H 18 94 06/05/23 15:25 91 19 98 06/05/23 14:47 36.9 C 96 20 168/76 H 99 - Physical Exam General Appearance: positive: No acute distress, Lethargic (Asleep, awakens when daughter speaks to her.), Other (Frail, elederly female (BMI 19).) Eyes Bilateral: positive: No lid inflammation ENT: positive: Dry mucous membranes, Other (Sunken cheeks.) Neck: positive: Nml inspection, No JVD Respiratory: positive: No respiratory distress Cardiovascular: positive: Regular rate & rhythm Abdomen: positive: Non-tender, Nml bowel sounds, No distention, Other (Gilmore in place) Skin: positive: Warm, Dry Extremities: positive: No pedal edema Neurologic/Psychiatric: positive: Other (Lethargic, awakens to name or touch, speaks softly, short answers) Conclusion/Plan - Problem List (1) Acute metabolic encephalopathy Conclusion/Plan: This is likely multifactorial: From her UTI infection, and from dehydration. In addition the CT abdomen/pelvis showed that she has gastric wall thickening consistent with gastritis, and the rectum showed proctitis. This could be another reason for her recent poor appetite Plan: We will continue with IV fluids Continue with IV antibiotics Neurochecks every shift Supportive care (2) Urinary tract infection Conclusion/Plan: The Gilmore is draining yellow urine, the bladder is decompressed on CT imaging. Plan: Await urine and blood culture results to tailor antibiotics Continue with empiric IV antibiotics, will continue Zosyn, since she may also have proctitis in addition to the UTI Start Florastor (3) Gastritis Conclusion/Plan: As per CT abdomen, suggesting gastritis. This probably added to her poor appetite and poor po intake for the last 4 days. Plan: I will start her on oral Protonix as well as Carafate 4 times daily Antiemetics will be ordered to give as needed (4) Chronic indwelling Gilmroe catheter Conclusion/Plan: I have no records from the hospitalization at [facility], where the Gilmore was apparently placed for urinary retention, as per the daughter's description of events. Plan: Continue with usual Gilmore care Will order any medications such as Flomax if she is on these, await the medicati on list to be reconciled by pharmacy (5) Hypernatremia Conclusion/Plan: All her labs were reviewed. Sodium 148 at admission. This is consistent with her poor oral intake for the last 4 days and her dehydration clinically and on labs Plan: We will use IV fluids that are hypotonic: will order D5 one half NS w/ KCl Follow BMP daily (6) Hypokalemia Conclusion/Plan: This may also be a result of poor oral intake if she had no appetite for the last 4 days. Possibly also from medication side effects Plan: We will replace with KCl riders and her maintenance fluids to contain KCl. Await her medication list to be reconciled by pharmacy, hold any diuretics Follow BMP daily (7) DM type 2 (diabetes mellitus, type 2) Conclusion/Plan: As per history. Plan: We will start the patient on a carb controlled diet, order hypoglycemia protocol, order fingerstick checks, sliding scale insulin coverage and check her A1c w/ morning labs. Await a reconciled med list for any DM meds (8) Status post hip surgery Conclusion/Plan: She suffered a fall and had a hip fracture which was repaired at [facility]. She was hospitalized there from 05/26-05/31/23. I have no records to review. Plan: When she is more awake and alert, will start PT and OT Plan will be to return her back to [facility] to complete her rehab there - Lab Results Fish Bones: 06/05/23 15:02 06/05/23 15:02 - Diagnostic Imaging Results Diagnostic Imaging Results: positive: Final report reviewed - Other Other Results/Comments: Attestation: The patient is expected to need hospitalization for greater than 2 midnights, and is expected to be discharged or transferred to another facility within 96 hours: Yes.
[2023-06-05] MEDS ORDERED: DEXTROSE 5%-0.45% NACL 1,000 ML IV SCH (18:00)
[2023-06-05] MEDS ORDERED: D5.45NS W/20 MEQ KCL 1,000 ML IV SCH (18:00)
[2023-06-05] MEDS: ONDANSETRON 4 MG/2 ML VIAL IVP PRN (20:08)
[2023-06-05] MEDS ORDERED: INSULIN LISPRO 300 UNIT/3 ML PEN SUBQ SCH (21:00)
[2023-06-05] MEDS: SUCRALFATE 1 GM/10 ML UDC PO SCH (22:20)
[2023-06-05] MEDS ORDERED: PIPERACILLIN/TAZOBACTAM 2.25 GM in SODIUM CHLORIDE 0.9% MINIBAG 100 ML IV ONE (23:00)
[2023-06-06] MEDS: SODIUM CHLORIDE FLUSH 0.9% 10 ML SYRINGE IVP SCH ×3 (00:57→17:13)
[2023-06-06] MEDS: LACTATED RINGERS 1,000 ML IV SCH ×3 (00:57→22:40)
[2023-06-06] MEDS: ONDANSETRON 4 MG/2 ML VIAL IVP PRN ×2 (00:57→06:24)
[2023-06-06] MEDS: PROCHLORPERAZINE 10 MG/2 ML VIAL IVP PRN (02:27)
[2023-06-06] MEDS: POTASSIUM CHLOR 10 MEQ/100 ML 10 MEQ/100 ML BAG IV SCH ×5 (04:01→23:30)
[2023-06-06] MEDS: PIPERACILLIN/TAZOBACTAM 2.25 GM in SODIUM CHLORIDE 0.9% MINIBAG 100 ML IV SCH ×3 (05:41→20:59)
[2023-06-06] MEDS: PANTOPRAZOLE 40 MG TABLET PO SCH (06:19)
[2023-06-06] MEDS: SACCHAROMYCES BOULARDII 250 MG CAPSULE PO SCH ×2 (08:55→18:36)
[2023-06-06] MEDS: ENOXAPARIN 40 MG/0.4 ML SYRINGE SUBQ SCH (08:56)
[2023-06-06] MEDS: INSULIN LISPRO 300 UNIT/3 ML PEN SUBQ SCH ×4 (08:57→20:53)
[2023-06-06] MEDS ORDERED: cefTRIAXone 1 GM in SODIUM CHLORIDE 0.9% MINIBAG 100 ML IV SCH (09:00)
[2023-06-06] MEDS: SUCRALFATE 1 GM/10 ML UDC PO SCH ×4 (09:05→21:03)
--- NOTE | 2023-06-06 12:07 | PHARMACY PROGRESS NOTE ---
- Best Possible Medication History Admit Date and Time: 06/05/23 1731 Processed by: Pharmacy Medication History completed: Yes Patient Interview: Pt unable to participate Secondary Source(s): Pharmacy records, Facility MAR as ONLY source As the person ultimately responsible for medication therapy, providers are able to order a medication from an existing home medication list in [facility] via the "Reconcile Routine" prior to Confirmation of that medication by application support engineer. Such practice is discouraged except when the physician, in their clinical judgment, deems that a medical need exists for a medication without regard to previous use.
[2023-06-06 13:04] LABS: ESTIMATED AVERAGE GLUCOSE 200 mg/dL (70-100); HEMOGLOBIN A1c% 8.6 % (4.27-6.07)
[2023-06-06] MEDS ORDERED: ZINC OXIDE 20% OINT 30 GM TUBE TOP PRN (13:55)
--- NOTE | 2023-06-06 17:13 | PROVIDER PROGRESS NOTE ---
Assessment/Plan - Problem List (1) Acute metabolic encephalopathy Assessment/Plan: This is likely multifactorial: From her UTI infection, and from dehydration. In addition the CT abdomen/pelvis showed that she has gastric wall thickening consistent with gastritis, and the rectum showed proctitis. This could be another reason for her recent poor appetite Head CT is unremarkable Plan: We will continue with IV fluids Continue with IV antibiotics Neurochecks every shift Supportive care (2) Urinary tract infection Qualifiers: Urinary tract infection type: acute cystitis Assessment/Plan: Preliminary urine culture shows E. coli Patient arrived with Williamson catheter in place Follow urine culture results Continue empiric ceftriaxone Pending clinical course, consider changing Williamson catheter (3) Hypernatremia Assessment/Plan: Sodium 147 on admission Monitor sodium levels daily (4) Chronic indwelling Williamson catheter Assessment/Plan: Patient arrived with Williamson catheter secondary to admission to [facility] after hip fracture Catheters been in place for approximately 2 weeks Pending clinical response to antibiotics may need to change catheter but if urine clears, WBC normalizes, may be able to maintain to avoid risk of harm from removing and reinserting second catheter (5) Hypokalemia Assessment/Plan: Potassium 2.5 Replaced with IV riders Repeat potassium level in a.m. (6) DM type 2 (diabetes mellitus, type 2) Assessment/Plan: Patient with very poor diet Despite this has had hyperglycemia which is slowly trending down Continue diabetic diet when taking p.o. Insulin sliding scale to correct for hyperglycemia (8) Gastritis Qualifiers: Gastritis bleeding: without bleeding Assessment/Plan: PT/OT Supportive care Lovenox - Current Meds Current Meds: Current Medications Generic Name Dose Route Start Last Admin Trade Name Josh PRN Reason Stop Dose Admin Enoxaparin Sodium 40 mg 06/06/23 09:00 06/06/23 08:56 Enoxaparin 40 Mg/0.4 Ml Syringe SUBQ 40 mg DAILY MELANY Administration Piperacillin Sod/Tazobactam 100 mls @ 25 mls/hr 06/06/23 06:00 06/06/23 15:27 Sod 2.25 gm/ Sodium Chloride IV 25 mls/hr Q8H MELANY Administration Lactated Ringer's 1,000 mls @ 100 mls/hr 06/06/23 01:00 06/06/23 11:29 Lr IV 100 mls/hr .Q10H MELANY Administration Insulin Human Lispro 1 - 9 unit 06/06/23 08:51 06/06/23 12:11 Insulin Lispro 300 Unit/3 Ml Pen SUBQ 5 unit 0800,1200,1700,2100 [facility] Administration Protocol Ondansetron HCl 4 mg 06/05/23 17:33 06/06/23 06:24 Ondansetron 4 Mg/2 Ml Vial IVP 4 mg Q6HR PRN Administration Nausea / Vomiting Pantoprazole Sodium 40 mg 06/06/23 07:00 06/06/23 06:19 Pantoprazole 40 Mg Tablet PO Not Given QDAC MELANY Prochlorperazine Edisylate 10 mg 06/06/23 00:26 06/06/23 02:27 Prochlorperazine 10 Mg/2 Ml Vial IVP 10 mg Q6HR PRN Administration Nausea / Vomiting Saccharomyces Boulardii 250 mg 06/06/23 08:00 06/06/23 08:55 Saccharomyces Boulardii 250 Mg Capsule PO Not Given BIDWM MELANY Sodium Chloride 10 ml 06/06/23 01:00 06/06/23 11:08 Sodium Chloride Flush 0.9% 10 Ml Syringe IVP Not Given 0100,0900,1700 [facility] Sucralfate 1 gm 06/05/23 22:00 06/06/23 11:13 Sucralfate 1 Gm/10 Ml Udc PO Not Given 0700,1100,1600,2200 [facility] - Lab Result Lab results reviewed: Yes Fish Bone Diagrams: 06/05/23 15:02 06/06/23 00:56 - Additional Planning Condition/Complexity: Stable My Orders: My Active Orders 06/06/23 Evaluate and Treat OT [OT] Routine 06/06/23 08:51 Insulin Lispro [Humalog Kwikpen U-100] 1 - 9 unit SUBQ 0800,1200,1700,2100 06/06/23 10:28 Evaluate and Treat PT [PT] Routine 06/06/23 13:55 Zinc Oxide 20% Oint [Zinc Oxide] 1 applic TOP PRN PRN 06/07/23 05:00 BMP - BASIC METABOLIC PANEL [CHEM] DAILYLAB CBC W/O DIFF (HEMOGRAM) [HEME] DAILYLAB 06/08/23 05:00 BMP - BASIC METABOLIC PANEL [CHEM] DAILYLAB CBC W/O DIFF (HEMOGRAM) [HEME] DAILYLAB 06/09/23 05:00 BMP - BASIC METABOLIC PANEL [CHEM] DAILYLAB CBC W/O DIFF (HEMOGRAM) [HEME] DAILYLAB Subjective - Subjective Nursing Reports: Confused Objective Vital Signs: Vital Signs - 24 hr 06/05/23 06/05/23 06/05/23 17:19 18:21 19:24 Temperature 36.5 C Heart Rate 101 H Heart Rate [ 99 96 Brachial] Respiratory 18 16 Rate Blood Pressure 186/76 H 167/64 H [Left Brachial artery] Blood Pressure [Right Brachial artery] O2 Saturation 94 100 06/05/23 06/06/23 06/06/23 21:59 00:54 06:25 Temperature 36.4 C L 36.3 C L 36.4 C L Heart Rate Heart Rate [ 103 H 118 H 102 H Brachial] Respiratory 24 16 28 H Rate Blood Pressure 159/65 H 157/70 H 157/70 H [Left Brachial artery] Blood Pressure [Right Brachial artery] O2 Saturation 100 98 100 06/06/23 06/06/23 06/06/23 07:35 10:00 13:02 Temperature 36.2 C L 36.2 C L 36.4 C L Heart Rate Heart Rate [ 99 99 102 H Brachial] Respiratory 24 24 20 Rate Blood Pressure 162/46 H 162/46 H [Left Brachial artery] Blood Pressure 156/60 H [Right Brachial artery] O2 Saturation 100 100 100 06/06/23 16:17 Temperature 35.5 C L Heart Rate Heart Rate [ 96 Brachial] Respiratory 24 Rate Blood Pressure 150/50 H [Left Brachial artery] Blood Pressure [Right Brachial artery] O2 Saturation 100 Oxygen O2 Source Room air I&O (Last 24 Hrs): Intake and Output Totals x24h 06/04/23 06/05/23 06/06/23 23:59 23:59 23:59 Intake Total 1816 2200 Output Total 800 1125 Balance 1016 1075 General: No acute distress HEENT: Atraumatic Neuro: Disoriented, Other (Difficult to arouse however when attempted to open eyes patient squints eyes closed) Cardiovascular: Regular rate, Normal S1, Normal S2 Abdomen: Normal bowel sounds, Soft Extremities: No edema - Results Results: Laboratory Results WBC 24.1 x10^3/uL (4.8-10.8) H 06/05/23 15:02 RBC 3.17 10^6/uL (4.20-5.40) L 06/05/23 15:02 Hgb 9.8 g/dL (12.0-16.0) L 06/05/23 15:02 Hct 29.4 % (37.0-47.0) L 06/05/23 15:02 MCV 92.7 fL (81.0-99.0) 06/05/23 15:02 MCH 30.9 pg (27.0-31.0) 06/05/23 15:02 MCHC 33.3 g/dL (32.0-36.0) 06/05/23 15:02 RDW 13.2 % (12.0-15.0) 06/05/23 15:02 Plt Count 395 10^3/uL (130-450) 06/05/23 15:02 MPV 9.2 fL (7.9-10.8) 06/05/23 15:02 Neut # (Auto) Not Reportable 06/05/23 15:02 Lymph # (Auto) Not Reportable 06/05/23 15:02 [place] # (Auto) Not Reportable 06/05/23 15:02 Eos # (Auto) Not Reportable 06/05/23 15:02 Baso # (Auto) Not Reportable 06/05/23 15:02 Absolute Nucleated RBC Not Reportable 06/05/23 15:02 Total Counted 100 06/05/23 15:02 Band Neuts % (Manual) 0 % (0-10) 06/05/23 15:02 Abnorm Lymph % (Manual) 0 % 06/05/23 15:02 Nucleated RBC % Not Reportable 06/05/23 15:02 Neutrophils # (Manual) 21.7 10^3/uL (1.5-6.6) H 06/05/23 15:02 Lymphocytes # (Manual) 1.2 10^3/uL (1.5-3.5) L 06/05/23 15:02 Monocytes # (Manual) 1.2 10^3/uL (0.0-1.0) H 06/05/23 15:02 Eosinophils # (Manual) 0.0 10^3/uL (0-0.7) 06/05/23 15:02 Basophils # (Manual) 0.0 10^3/uL (0-0.1) 06/05/23 15:02 Differential Comment MANUAL DIFFERENTIAL 06/05/23 15:02 WBC Morphology NORMAL APPEARANCE (NORMAL) 06/05/23 15:02 Platelet Estimate NORMAL (130-450,000) (NORMAL) 06/05/23 15:02 Platelet Morphology NORMAL APPEARANCE (NORMAL) 06/05/23 15:02 RBC Morph Micro Appear NORMAL APPEARANCE (NORMAL) 06/05/23 15:02 Sodium 148 mmol/L (135-145) H 06/05/23 15:02 Potassium 2.5 mmol/L (3.5-5.0) L* 06/06/23 00:56 Chloride 102 mmol/L (101-111) 06/05/23 15:02 Carbon Dioxide 28 mmol/L (21-32) 06/05/23 15:02 Anion Gap 18.0 (6-13) H 06/05/23 15:02 BUN 36 mg/dL (6-20) H 06/05/23 15:02 Creatinine 0.9 mg/dL (0.6-1.3) 06/05/23 15:02 Estimated GFR (MDRD) 60 (>89) L 06/05/23 15:02 Glucose 369 mg/dL (74-104) H 06/05/23 15:02 POC Whole Bld Glucose 184 mg/dL (70 - 100) H 06/06/23 16:54 Estimat Average Glucose 200 mg/dL (70-100) H 06/05/23 15:02 Hemoglobin A1c % 8.6 % (4.27-6.07) H 06/05/23 15:02 Lactic Acid 1.7 mmol/L (0.5-2.2) 06/05/23 15:02 Calcium 9.3 mg/dL (8.5-10.3) 06/05/23 15:02 Total Bilirubin 1.1 mg/dL (0.2-1.0) H 06/05/23 15:02 AST 18 IU/L (10-42) 06/05/23 15:02 ALT 14 IU/L (10-60) 06/05/23 15:02 Alkaline Phosphatase 92 IU/L (42-121) 06/05/23 15:02 Total Protein 6.7 g/dL (6.4-8.9) 06/05/23 15:02 Albumin 3.3 g/dL (3.2-5.5) 06/05/23 15:02 Globulin 3.4 g/dL (2.1-4.2) 06/05/23 15:02 Albumin/Globulin Ratio 1.0 (1.0-2.2) 06/05/23 15:02 Urine Color YELLOW 06/05/23 15:45 Urine Clarity CLOUDY (CLEAR) 06/05/23 15:45 Urine pH 5.0 PH (5.0-7.5) 06/05/23 15:45 Ur Specific [place] 1.025 (1.002-1.030) 06/05/23 15:45 Urine Protein 30 mg/dL (NEGATIVE) H 06/05/23 15:45 Urine Glucose (UA) >=1000 mg/dL (NEGATIVE) H 06/05/23 15:45 Urine Ketones 40 mg/dL (NEGATIVE) H 06/05/23 15:45 Urine Occult Blood MODERATE (NEGATIVE) H 06/05/23 15:45 Urine Nitrite NEGATIVE (NEGATIVE) 06/05/23 15:45 Urine Bilirubin NEGATIVE (NEGATIVE) 06/05/23 15:45 Urine Urobilinogen 1 (NORMAL) E.U./dL (NORMAL) 06/05/23 15:45 Ur Leukocyte Esterase TRACE (NEGATIVE) H 06/05/23 15:45 Urine RBC 6-10 /HPF (0-5) H 06/05/23 15:45 Urine WBC >25 /HPF (0-5) H 06/05/23 15:45 Ur Squamous Epith Cells FEW Squamous (<= Few) 06/05/23 15:45 Urine Bacteria Many /HPF (None Seen) H 06/05/23 15:45 Urine Culture Comments INDICATED 06/05/23 15:45 ABX Reporting Has patient been on IV antibiotics over the past 48 hours?: No Current Medications - Current Medications Current Medications: Current Medications Generic Name Dose Route Start Last Admin Trade Name Freq PRN Reason Stop Dose Admin Enoxaparin Sodium 40 mg 06/06/23 09:00 06/06/23 08:56 Enoxaparin 40 Mg/0.4 Ml Syringe SUBQ 40 mg DAILY MELANY Administration Piperacillin Sod/Tazobactam 100 mls @ 25 mls/hr 06/06/23 06:00 06/06/23 15:27 Sod 2.25 gm/ Sodium Chloride IV 25 mls/hr Q8H MELANY Administration Lactated Ringer's 1,000 mls @ 100 mls/hr 06/06/23 01:00 06/06/23 11:29 Lr IV 100 mls/hr .Q10H MELANY Administration Insulin Human Lispro 1 - 9 unit 06/06/23 08:51 06/06/23 12:11 Insulin Lispro 300 Unit/3 Ml Pen SUBQ 5 unit 0800,1200,1700,2100 [facility] Administration Protocol Ondansetron HCl 4 mg 06/05/23 17:33 06/06/23 06:24 Ondansetron 4 Mg/2 Ml Vial IVP 4 mg Q6HR PRN Administration Nausea / Vomiting Pantoprazole Sodium 40 mg 06/06/23 07:00 06/06/23 06:19 Pantoprazole 40 Mg Tablet PO Not Given QDAC [facility] Prochlorperazine Edisylate 10 mg 06/06/23 00:26 06/06/23 02:27 Prochlorperazine 10 Mg/2 Ml Vial IVP 10 mg Q6HR PRN Administration Nausea / Vomiting Saccharomyces Boulardii 250 mg 06/06/23 08:00 06/06/23 08:55 Saccharomyces Boulardii 250 Mg Capsule PO Not Given BIDWM [facility] Sodium Chloride 10 ml 06/06/23 01:00 06/06/23 17:13 Sodium Chloride Flush 0.9% 10 Ml Syringe IVP 10 ml 0100,0900,1700 [facility] Administration Sucralfate 1 gm 06/05/23 22:00 06/06/23 17:12 Sucralfate 1 Gm/10 Ml Udc PO Not Given 0700,1100,1600,2200 [facility]
[2023-06-06] MEDS ORDERED: LACTATED RINGERS 1,000 ML IV SCH (23:00)
[2023-06-07] MEDS: POTASSIUM CHLOR 10 MEQ/100 ML 10 MEQ/100 ML BAG IV SCH ×15 (00:55→22:40)
[2023-06-07] MEDS: PROCHLORPERAZINE 10 MG/2 ML VIAL IVP PRN (01:05)
[2023-06-07] MEDS: SODIUM CHLORIDE FLUSH 0.9% 10 ML SYRINGE IVP SCH ×3 (02:51→16:57)
[2023-06-07 04:04] LABS: HCT - HEMATOCRIT 28.4 % (37.0-47.0); HGB - HEMOGLOBIN 9.6 g/dL (12.0-16.0); MEAN CORPUSCULAR HGB CONC 33.8 g/dL (32.0-36.0); MEAN CORPUSCULAR VOLUME 91.6 fL (81.0-99.0); RED BLOOD COUNT 3.1 10^6/uL (4.20-5.40); RED CELL DISTRIBUTION WIDTH 13.5 % (12.0-15.0); WHITE BLOOD COUNT 17.1 x10^3/uL (4.8-10.8)
[2023-06-07 04:19] LABS: CALCIUM 8.7 mg/dL (8.5-10.3); CREATININE 0.8 mg/dL (0.6-1.3); POTASSIUM 2.6 mmol/L (3.5-4.5)
[2023-06-07] MEDS: PIPERACILLIN/TAZOBACTAM 2.25 GM in SODIUM CHLORIDE 0.9% MINIBAG 100 ML IV SCH (05:18)
[2023-06-07] MEDS ORDERED: MAGNESIUM SULFATE 2 GRAM 2 GM/50 ML BAG IV ONE (06:04)
[2023-06-07] MEDS: LACTATED RINGERS 1,000 ML IV SCH (06:21)
[2023-06-07] MEDS: PANTOPRAZOLE 40 MG TABLET PO SCH (06:22)
--- NOTE | 2023-06-07 07:04 | PROVIDER PROGRESS NOTE ---
Subjective - Subjective Subjective: hypokalemia Overnight patient with persistent hypokalemia potassium was not checked during the day as per nurse INITIAL called with potassium of 2.1 patient received four runs of IV potassium 10 mEq diabetes about this morning nurse call me again that potassium is a law went up to 2.6 I ordered and therefore runs of potassium four patient also requested to check magnesium start which came back 1.7 I ordered 2 g of magnesium actually 1 g was ordered and then in & out the ED team will take over the patient care. Patient IV fluid resumes LR did not add potassium in there. Will repeat the potassium levels again and make changes accordingly. dr [email or web address] Objective - Vital Signs/Intake & Output Vital Signs: Vital Signs x48h Temp Pulse Resp BP BP BP Pulse Ox 06/07/23 03:33 36.6 C 100 14 160/77 H 100 06/07/23 00:03 76 12 154/55 H 06/06/23 23:43 36.7 C 88 16 171/56 H 95 Intake & Output: Intake & Output 06/04/23 06/05/23 06/06/23 06/07/23 23:59 23:59 23:59 23:59 Intake Total 1816 3400 591.667 Output Total 800 2275 350 Balance 1016 1125 241.667 - Lab Results Fish Bones: 06/07/23 03:59 06/07/23 03:59 Other Labs: Lab Results x24hrs 06/07/23 06/07/23 06/07/23 Range/Units 03:59 03:59 03:59 WBC 17.1 H (4.8-10.8) x10^3/uL RBC 3.10 L (4.20-5.40) 10^6/uL Hgb 9.6 L (12.0-16.0) g/dL Hct 28.4 L (37.0-47.0) % MCV 91.6 (81.0-99.0) fL MCH 31.0 (27.0-31.0) pg MCHC 33.8 (32.0-36.0) g/dL RDW 13.5 (12.0-15.0) % Plt Count 354 (130-450) 10^3/uL MPV 9.0 (7.9-10.8) fL Sodium 147 H (135-145) mmol/L Potassium 2.6 L (3.5-5.0) mmol/L Chloride 105 (101-111) mmol/L Carbon Dioxide 30 (21-32) mmol/L Anion Gap 12.0 (6-13) BUN 19 (6-20) mg/dL Creatinine 0.8 (0.6-1.3) mg/dL Estimated GFR (MDRD) 69 L (>89) Glucose 216 H (74-104) mg/dL POC Whole Bld Glucose (70 - 100) mg/dL Estimat Average Glucose (70-100) mg/dL Hemoglobin A1c % (4.27-6.07) % Calcium 8.7 (8.5-10.3) mg/dL Magnesium 1.7 (1.7-2.3) mg/dL 06/06/23 06/06/23 06/06/23 Range/Units 21:27 20:31 16:54 WBC (4.8-10.8) x10^3/uL RBC (4.20-5.40) 10^6/uL Hgb (12.0-16.0) g/dL Hct (37.0-47.0) % MCV (81.0-99.0) fL MCH (27.0-31.0) pg MCHC (32.0-36.0) g/dL RDW (12.0-15.0) % Plt Count (130-450) 10^3/uL MPV (7.9-10.8) fL Sodium (135-145) mmol/L Potassium 2.1 L* (3.5-5.0) mmol/L Chloride (101-111) mmol/L Carbon Dioxide (21-32) mmol/L Anion Gap (6-13) BUN (6-20) mg/dL Creatinine (0.6-1.3) mg/dL Estimated GFR (MDRD) (>89) Glucose (74-104) mg/dL POC Whole Bld Glucose 165 H 184 H (70 - 100) mg/dL Estimat Average Glucose (70-100) mg/dL Hemoglobin A1c % (4.27-6.07) % Calcium (8.5-10.3) mg/dL Magnesium (1.7-2.3) mg/dL 06/06/23 06/06/23 06/05/23 Range/Units 11:06 07:27 15:02 WBC (4.8-10.8) x10^3/uL RBC (4.20-5.40) 10^6/uL Hgb (12.0-16.0) g/dL Hct (37.0-47.0) % MCV (81.0-99.0) fL MCH (27.0-31.0) pg MCHC (32.0-36.0) g/dL RDW (12.0-15.0) % Plt Count (130-450) 10^3/uL MPV (7.9-10.8) fL Sodium (135-145) mmol/L Potassium (3.5-5.0) mmol/L Chloride (101-111) mmol/L Carbon Dioxide (21-32) mmol/L Anion Gap (6-13) BUN (6-20) mg/dL Creatinine (0.6-1.3) mg/dL Estimated GFR (MDRD) (>89) Glucose (74-104) mg/dL POC Whole Bld Glucose 239 H 292 H (70 - 100) mg/dL Estimat Average Glucose 200 H (70-100) mg/dL Hemoglobin A1c % 8.6 H (4.27-6.07) % Calcium (8.5-10.3) mg/dL Magnesium (1.7-2.3) mg/dL
[2023-06-07] MEDS ORDERED: MAGNESIUM SULFATE 1 GM in SODIUM CHLORIDE 0.9% 50 ML IV ONE ×2 (07:30→08:30)
[2023-06-07] MEDS: INSULIN LISPRO 300 UNIT/3 ML PEN SUBQ SCH ×4 (07:56→21:28)
[2023-06-07] MEDS: SACCHAROMYCES BOULARDII 250 MG CAPSULE PO SCH ×2 (09:00→16:56)
[2023-06-07] MEDS ORDERED: cefTRIAXone 1 GM in SODIUM CHLORIDE 0.9% MINIBAG 100 ML IV SCH (09:00)
[2023-06-07] MEDS: SUCRALFATE 1 GM/10 ML UDC PO SCH ×4 (09:00→21:30)
[2023-06-07] MEDS: ENOXAPARIN 40 MG/0.4 ML SYRINGE SUBQ SCH (09:15)
[2023-06-07] MEDS: SODIUM CHLORIDE 0.45% 1,000 ML IV SCH (09:20)
[2023-06-07] MEDS: cefTRIAXone 1 GM in SODIUM CHLORIDE 0.9% MINIBAG 100 ML IV SCH (10:27)
[2023-06-07] MEDS ORDERED: POTASSIUM CHLORIDE INJ 40 MEQ in SODIUM CHLORIDE 0.9% 500 ML IV ONE (11:09)
--- NOTE | 2023-06-07 11:10 | PROVIDER PROGRESS NOTE ---
Assessment/Plan - Problem List (1) Acute metabolic encephalopathy Assessment/Plan: This is likely multifactorial: From her UTI infection, Now proven to be with bacteremia, and from dehydration. In addition the CT abdomen/pelvis showed that she has gastric wall thickening consistent with gastritis, and the rectum showed proctitis. This could be another reason for her recent poor appetite. Head CT is unremarkable Plan: We will continue with IV fluids SURVEYOR HELPER eval ordered as pt taking little PO, concern for aspiration risk Continue with IV antibiotics Continue electrolyte replacement Neurochecks every shift Supportive care (2) Urinary tract infection Qualifiers: Urinary tract infection type: acute cystitis (3) Hypernatremia Assessment/Plan: Stable at 147, likely 2/2 to decreased PO intake Will check urine Na and Osm (4) Chronic indwelling Gilmore catheter Assessment/Plan: Pt arrived with Gilmore - given bacteremia, will change current gilmore, insert new one. (5) Hypokalemia Assessment/Plan: Persistent, likely 2/2 to decreased PO intake. Replaced this am, still 3.0. Will replace another 40 meq IV (6) DM type 2 (diabetes mellitus, type 2) Assessment/Plan: BS have been elevated, but pt with minimal PO intake Cont sliding scale correction for now, pending clarity in diet and PO intake. (7) Status post hip surgery Assessment/Plan: May need damian removed. Cont PT when able to participate. (8) Gastritis Qualifiers: Gastritis bleeding: without bleeding Assessment/Plan: Radiographic finding Cont protonix, switch to IV since she's not taking PO (9) Bacteremia, escherichia coli Assessment/Plan: Patient admitted with UTI, urine culture grew E. coli Followed by pulm culture also showing E. coli which is pansensitive. May be contributing to patient's acute metabolic encephalopathy. Patient is hemodynamically stable, not septic. Continue IV ceftriaxone. Will likely require 10 to 14 days and IV to p.o. transition will depend on patient's ability to tolerate oral meds. - Current Meds Current Meds: Current Medications Generic Name Dose Route Start Last Admin Trade Name Freq PRN Reason Stop Dose Admin Enoxaparin Sodium 40 mg 06/06/23 09:00 06/07/23 09:15 Enoxaparin 40 Mg/0.4 Ml Syringe SUBQ 40 mg DAILY MELANY Administration Sodium Chloride 1,000 mls @ 50 mls/hr 06/07/23 09:00 06/07/23 09:20 Normal Saline 0.45% IV 50 mls/hr .Q20H MELANY Administration Ceftriaxone Sodium 1 gm/ 100 mls @ 200 mls/hr 06/07/23 12:00 06/07/23 10:27 Sodium Chloride IV 200 mls/hr DAILY MELANY Administration Insulin Human Lispro 1 - 9 unit 06/06/23 08:51 06/07/23 07:56 Insulin Lispro 300 Unit/3 Ml Pen SUBQ 3 unit 0800,1200,1700,2100 MELANY Administration Protocol Ondansetron HCl 4 mg 06/05/23 17:33 06/06/23 06:24 Ondansetron 4 Mg/2 Ml Vial IVP 4 mg Q6HR PRN Administration Nausea / Vomiting Pantoprazole Sodium 40 mg 06/06/23 07:00 06/07/23 06:22 Pantoprazole 40 Mg Tablet PO Not Given QDAC MELANY Prochlorperazine Edisylate 10 mg 06/06/23 00:26 06/07/23 01:05 Prochlorperazine 10 Mg/2 Ml Vial IVP 10 mg Q6HR PRN Administration Nausea / Vomiting Saccharomyces Boulardii 250 mg 06/06/23 08:00 06/07/23 09:00 Saccharomyces Boulardii 250 Mg Capsule PO Not Given BIDWM MELANY Sodium Chloride 10 ml 06/06/23 01:00 06/07/23 10:09 Sodium Chloride Flush 0.9% 10 Ml Syringe IVP Not Given 0100,0900,1700 [facility] Sucralfate 1 gm 06/05/23 22:00 06/07/23 10:26 Sucralfate 1 Gm/10 Ml Udc PO Not Given 0700,1100,1600,2200 [facility] - Lab Result Lab results reviewed: Yes Fish Bone Diagrams: 06/07/23 03:59 06/07/23 10:17 - Additional Planning Condition/Complexity: Stable My Orders: My Active Orders 06/06/23 10:28 Evaluate and Treat PT [PT] Routine 06/06/23 13:55 Zinc Oxide 20% Oint [Zinc Oxide] 1 applic TOP PRN PRN 06/07/23 Swallow Evaluation [Clinical Swallow Eval w/Modified ST] [ST] Routine 06/07/23 07:36 Code Status [OTHERS] Routine 06/07/23 09:00 Sodium Chloride 0.45% [Normal Saline 0.45%] 1,000 ml IV 50 mls/hr 06/07/23 12:00 [id number] [Rocephin] 1 gm Sodium Chloride 0.9% Minibag [Normal Saline 0.9% Minibag] 100 ml IV DAILY 06/08/23 05:00 BMP - BASIC METABOLIC PANEL [CHEM] DAILYLAB CBC W/O DIFF (HEMOGRAM) [HEME] DAILYLAB 06/09/23 05:00 BMP - BASIC METABOLIC PANEL [CHEM] DAILYLAB CBC W/O DIFF (HEMOGRAM) [HEME] DAILYLAB Plan Discussed with:: Family Subjective - Subjective Patient Reports: No Complaints Objective Vital Signs: Vital Signs - 24 hr 06/06/23 06/06/23 06/06/23 13:02 16:17 18:39 Temperature 36.4 C L 35.5 C L 36.2 C L Heart Rate [ 102 H 96 Brachial] Respiratory 20 24 Rate Blood Pressure 150/50 H [Left Brachial artery] Blood Pressure [Left Radial artery] Blood Pressure 156/60 H [Right Brachial artery] O2 Saturation 100 100 06/06/23 06/06/23 06/07/23 20:23 23:43 00:03 Temperature 36.7 C 36.7 C Heart Rate [ 96 88 76 Brachial] Respiratory 26 H 16 12 Rate Blood Pressure [Left Brachial artery] Blood Pressure 143/45 H 154/55 H [Left Radial artery] Blood Pressure 171/56 H [Right Brachial artery] O2 Saturation 100 95 06/07/23 06/07/23 03:33 07:27 Temperature 36.6 C 36.3 C L Heart Rate [ 100 94 Brachial] Respiratory 14 14 Rate Blood Pressure 160/77 H 184/75 H [Left Brachial artery] Blood Pressure [Left Radial artery] Blood Pressure [Right Brachial artery] O2 Saturation 100 100 Oxygen O2 Source Room air I&O (Last 24 Hrs): Intake and Output Totals x24h 06/05/23 06/06/23 06/07/23 23:59 23:59 23:59 Intake Total 1816 3400 1991.667 Output Total 800 2275 350 Balance 1016 1125 1641.667 General: Other (Lethargic) HEENT: Atraumatic Neuro: Other (Lethargic, but no focal defecits noted) Cardiovascular: Regular rate, Normal S1, Normal S2 Abdomen: Normal bowel sounds Extremities: No clubbing, No cyanosis, No edema - Results Results: Laboratory Results WBC 17.1 x10^3/uL (4.8-10.8) H 06/07/23 03:59 RBC 3.10 10^6/uL (4.20-5.40) L 06/07/23 03:59 Hgb 9.6 g/dL (12.0-16.0) L 06/07/23 03:59 Hct 28.4 % (37.0-47.0) L 06/07/23 03:59 MCV 91.6 fL (81.0-99.0) 06/07/23 03:59 MCH 31.0 pg (27.0-31.0) 06/07/23 03:59 MCHC 33.8 g/dL (32.0-36.0) 06/07/23 03:59 RDW 13.5 % (12.0-15.0) 06/07/23 03:59 Plt Count 354 10^3/uL (130-450) 06/07/23 03:59 MPV 9.0 fL (7.9-10.8) 06/07/23 03:59 Neut # (Auto) Not Reportable 06/05/23 15:02 Lymph # (Auto) Not Reportable 06/05/23 15:02 [place] # (Auto) Not Reportable 06/05/23 15:02 Eos # (Auto) Not Reportable 06/05/23 15:02 Baso # (Auto) Not Reportable 06/05/23 15:02 Absolute Nucleated RBC Not Reportable 06/05/23 15:02 Total Counted 100 06/05/23 15:02 Band Neuts % (Manual) 0 % (0-10) 06/05/23 15:02 Abnorm Lymph % (Manual) 0 % 06/05/23 15:02 Nucleated RBC % Not Reportable 06/05/23 15:02 Neutrophils # (Manual) 21.7 10^3/uL (1.5-6.6) H 06/05/23 15:02 Lymphocytes # (Manual) 1.2 10^3/uL (1.5-3.5) L 06/05/23 15:02 Monocytes # (Manual) 1.2 10^3/uL (0.0-1.0) H 06/05/23 15:02 Eosinophils # (Manual) 0.0 10^3/uL (0-0.7) 06/05/23 15:02 Basophils # (Manual) 0.0 10^3/uL (0-0.1) 06/05/23 15:02 Differential Comment MANUAL DIFFERENTIAL 06/05/23 15:02 WBC Morphology NORMAL APPEARANCE (NORMAL) 06/05/23 15:02 Platelet Estimate NORMAL (130-450,000) (NORMAL) 06/05/23 15:02 Platelet Morphology NORMAL APPEARANCE (NORMAL) 06/05/23 15:02 RBC Morph Micro Appear NORMAL APPEARANCE (NORMAL) 06/05/23 15:02 Sodium 147 mmol/L (135-145) H 06/07/23 03:59 Potassium 3.0 mmol/L (3.5-4.5) L 06/07/23 10:17 Chloride 105 mmol/L (101-111) 06/07/23 03:59 Carbon Dioxide 30 mmol/L (21-32) 06/07/23 03:59 Anion Gap 12.0 (6-13) 06/07/23 03:59 BUN 19 mg/dL (6-20) 06/07/23 03:59 Creatinine 0.8 mg/dL (0.6-1.3) 06/07/23 03:59 Estimated GFR (MDRD) 69 (>89) L 06/07/23 03:59 Glucose 216 mg/dL (74-104) H 06/07/23 03:59 POC Whole Bld Glucose 211 mg/dL (70 - 100) H 06/07/23 07:38 Estimat Average Glucose 200 mg/dL (70-100) H 06/05/23 15:02 Hemoglobin A1c % 8.6 % (4.27-6.07) H 06/05/23 15:02 Lactic Acid 1.7 mmol/L (0.5-2.2) 06/05/23 15:02 Calcium 8.7 mg/dL (8.5-10.3) 06/07/23 03:59 Magnesium 1.7 mg/dL (1.7-2.3) 06/07/23 03:59 Total Bilirubin 1.1 mg/dL (0.2-1.0) H 06/05/23 15:02 AST 18 IU/L (10-42) 06/05/23 15:02 ALT 14 IU/L (10-60) 06/05/23 15:02 Alkaline Phosphatase 92 IU/L (42-121) 06/05/23 15:02 Total Protein 6.7 g/dL (6.4-8.9) 06/05/23 15:02 Albumin 3.3 g/dL (3.2-5.5) 06/05/23 15:02 Globulin 3.4 g/dL (2.1-4.2) 06/05/23 15:02 Albumin/Globulin Ratio 1.0 (1.0-2.2) 06/05/23 15:02 Urine Color YELLOW 06/05/23 15:45 Urine Clarity CLOUDY (CLEAR) 06/05/23 15:45 Urine pH 5.0 PH (5.0-7.5) 06/05/23 15:45 Ur Specific [place] 1.025 (1.002-1.030) 06/05/23 15:45 Urine Protein 30 mg/dL (NEGATIVE) H 06/05/23 15:45 Urine Glucose (UA) >=1000 mg/dL (NEGATIVE) H 06/05/23 15:45 Urine Ketones 40 mg/dL (NEGATIVE) H 06/05/23 15:45 Urine Occult Blood MODERATE (NEGATIVE) H 06/05/23 15:45 Urine Nitrite NEGATIVE (NEGATIVE) 06/05/23 15:45 Urine Bilirubin NEGATIVE (NEGATIVE) 06/05/23 15:45 Urine Urobilinogen 1 (NORMAL) E.U./dL (NORMAL) 06/05/23 15:45 Ur Leukocyte Esterase TRACE (NEGATIVE) H 06/05/23 15:45 Urine RBC 6-10 /HPF (0-5) H 06/05/23 15:45 Urine WBC >25 /HPF (0-5) H 06/05/23 15:45 Ur Squamous Epith Cells FEW Squamous (<= Few) 06/05/23 15:45 Urine Bacteria Many /HPF (None Seen) H 06/05/23 15:45 Urine Culture Comments INDICATED 06/05/23 15:45 ABX Reporting Has patient been on IV antibiotics over the past 48 hours?: No Current Medications - Current Medications Current Medications: Current Medications Generic Name Dose Route Start Last Admin Trade Name Freq PRN Reason Stop Dose Admin Enoxaparin Sodium 40 mg 06/06/23 09:00 06/07/23 09:15 Enoxaparin 40 Mg/0.4 Ml Syringe SUBQ 40 mg DAILY MELANY Administration Sodium Chloride 1,000 mls @ 50 mls/hr 06/07/23 09:00 06/07/23 09:20 Normal Saline 0.45% IV 50 mls/hr .Q20H MELANY Administration Ceftriaxone Sodium 1 gm/ 100 mls @ 200 mls/hr 06/07/23 12:00 06/07/23 10:27 Sodium Chloride IV 200 mls/hr DAILY MELANY Administration Insulin Human Lispro 1 - 9 unit 06/06/23 08:51 06/07/23 07:56 Insulin Lispro 300 Unit/3 Ml Pen SUBQ 3 unit 0800,1200,1700,2100 MELANY Administration Protocol Ondansetron HCl 4 mg 06/05/23 17:33 06/06/23 06:24 Ondansetron 4 Mg/2 Ml Vial IVP 4 mg Q6HR PRN Administration Nausea / Vomiting Prochlorperazine Edisylate 10 mg 06/06/23 00:26 06/07/23 01:05 Prochlorperazine 10 Mg/2 Ml Vial IVP 10 mg Q6HR PRN Administration Nausea / Vomiting Saccharomyces Boulardii 250 mg 06/06/23 08:00 06/07/23 09:00 Saccharomyces Boulardii 250 Mg Capsule PO Not Given BIDWM MELANY Sodium Chloride 10 ml 06/06/23 01:00 06/07/23 10:09 Sodium Chloride Flush 0.9% 10 Ml Syringe IVP Not Given 0100,0900,1700 [facility] Sucralfate 1 gm 06/05/23 22:00 06/07/23 10:26 Sucralfate 1 Gm/10 Ml Udc PO Not Given 0700,1100,1600,2200 [facility]
[2023-06-07] MEDS: PANTOPRAZOLE 40 MG VIAL IVP SCH (14:01)
[2023-06-07 17:51] LABS: CALCIUM 8.5 mg/dL (8.5-10.3); CREATININE 0.8 mg/dL (0.6-1.3); POTASSIUM 3.2 mmol/L (3.5-4.5)
[2023-06-08] MEDS: SODIUM CHLORIDE FLUSH 0.9% 10 ML SYRINGE IVP SCH ×3 (00:05→16:45)
[2023-06-08 05:44] LABS: HCT - HEMATOCRIT 27.4 % (37.0-47.0); HGB - HEMOGLOBIN 9.3 g/dL (12.0-16.0); MEAN CORPUSCULAR HEMOGLOBIN 31.1 pg (27.0-31.0); MEAN CORPUSCULAR HGB CONC 33.9 g/dL (32.0-36.0); MEAN CORPUSCULAR VOLUME 91.6 fL (81.0-99.0); MEAN PLATELET VOLUME 8.9 fL (7.9-10.8); RED BLOOD COUNT 2.99 10^6/uL (4.20-5.40); RED CELL DISTRIBUTION WIDTH 13.4 % (12.0-15.0); WHITE BLOOD COUNT 15.9 x10^3/uL (4.8-10.8)
[2023-06-08 05:55] LABS: CALCIUM 8.4 mg/dL (8.5-10.3); CREATININE 0.6 mg/dL (0.6-1.3); POTASSIUM 3.4 mmol/L (3.5-4.5)
[2023-06-08] MEDS: PANTOPRAZOLE 40 MG VIAL IVP SCH (06:07)
[2023-06-08] MEDS: SUCRALFATE 1 GM/10 ML UDC PO SCH ×4 (06:35→22:16)
[2023-06-08] MEDS: SODIUM CHLORIDE 0.45% 1,000 ML IV SCH (06:37)
[2023-06-08] MEDS: INSULIN LISPRO 300 UNIT/3 ML PEN SUBQ SCH ×4 (08:19→22:16)
[2023-06-08] MEDS: cefTRIAXone 1 GM in SODIUM CHLORIDE 0.9% MINIBAG 100 ML IV SCH (08:20)
[2023-06-08] MEDS: ENOXAPARIN 40 MG/0.4 ML SYRINGE SUBQ SCH (08:20)
[2023-06-08] MEDS: SACCHAROMYCES BOULARDII 250 MG CAPSULE PO SCH ×2 (09:14→16:44)
--- NOTE | 2023-06-08 11:42 | DISCHARGE SUMMARY ---
Discharge Summary Condition at Discharge: Serious - ALLERGIES Allergies/Adverse Reactions: Allergies Allergy/AdvReac Type Severity Reaction Status Date / Time No Known Drug Allergies Allergy Verified 12/13/22 21:09 - MEDICATIONS Home Medications: Ambulatory Orders Medication Instructions Recorded Confirmed Aspirin Chewable [[facility] [place]yn 81 mg PO DAILY 12/13/22 06/06/23 Aspirin] Acetaminophen [Tylenol] 2 tab PO Q6H PRN 06/06/23 06/06/23 Atorvastatin Calcium 1 tab PO HS 06/06/23 06/06/23 Bisacodyl Supp [Dulcolax Supp] 1 supp HI PRN PRN 06/06/23 06/06/23 Enoxaparin [Lovenox] 40 mg SUBQ DAILY 06/06/23 06/06/23 Lisinopril/Hydrochlorothiazide 1 tab PO DAILY 06/06/23 06/06/23 [Zestoretic 20-25 mg Tablet] Mineral Oil [Mineral Oil Enema] 1 unit HI PRN PRN 06/06/23 06/06/23 Senna [Senokot] 2 tab PO PRN PRN 06/06/23 06/06/23 hydrALAZINE [Apresoline] 1 tab PO Q12H PRN 06/06/23 06/06/23 metFORMIN [Glucophage] 1 tab PO BID 06/06/23 06/06/23 polyethylene glycoL 3350 [Miralax] 1 packet PO DAILY PRN 06/06/23 06/06/23 - LABS Result Diagrams: 06/08/23 05:37 06/08/23 05:37
--- NOTE | 2023-06-08 16:42 | PROVIDER PROGRESS NOTE ---
Assessment/Plan - Problem List (1) Bacteremia, escherichia coli Assessment/Plan: (1) Acute metabolic encephalopathy Assessment/Plan: This is likely multifactorial: From her UTI infection, Now proven to be with bacteremia, and from dehydration. In addition the CT abdomen/pelvis showed that she has gastric wall thickening consistent with gastritis, and the rectum showed proctitis. This could be another reason for her recent poor appetite. Head CT is unremarkable Plan: We will continue with IV fluids QUALITY CONTROL SCIENTIST eval ordered as pt taking little PO, concern for aspiration risk Continue with IV antibiotics Continue electrolyte replacement Neurochecks every shift Supportive care (2) Urinary tract infection Qualifiers: Urinary tract infection type: acute cystitis (3) Hypernatremia Assessment/Plan: Stable at 147, likely 2/2 to decreased PO intake Will check urine Na and Osm (4) Chronic indwelling Gilmore catheter Assessment/Plan: Pt arrived with Gil[place] - given bacteremia, will change current gilmore, insert new one. (5) Hypokalemia Assessment/Plan: Persistent, likely 2/2 to decreased PO intake. Replaced this am, still 3.0. Will replace another 40 meq IV (6) DM type 2 (diabetes mellitus, type 2) Assessment/Plan: BS have been elevated, but pt with minimal PO intake Cont sliding scale correction for now, pending clarity in diet and PO intake. (7) Status post hip surgery Assessment/Plan: May need damian removed. Cont PT when able to participate. (8) Gastritis Qualifiers: Gastritis bleeding: without bleeding Assessment/Plan: Radiographic finding Cont protonix, switch to IV since she's not taking PO (9) Bacteremia, escherichia coli Assessment/Plan: Patient admitted with UTI, urine culture grew E. coli Followed by pulm culture also showing E. coli which is pansensitive. May be contributing to patient's acute metabolic encephalopathy. Patient is hemodynamically stable, not septic. Continue IV ceftriaxone. Will likely require 10 to 14 days and IV to p.o. transition will depend on patient's ability to tolerate oral meds. (2) Severe protein-calorie malnutrition Assessment/Plan: Patient has nutrition intake of less than 50% of recommended intake for 2 weeks or more. Weight loss approximately 33% in 6 months. Patient was in December 72 kg and currently 48 kg. - Current Meds Current Meds: Current Medications Generic Name Dose Route Start Last Admin Trade Name Freq PRN Reason Stop Dose Admin Enoxaparin Sodium 40 mg 06/06/23 09:00 06/08/23 08:20 Enoxaparin 40 Mg/0.4 Ml Syringe SUBQ 40 mg DAILY MELANY Administration Sodium Chloride 1,000 mls @ 50 mls/hr 06/07/23 09:00 06/08/23 06:37 Normal Saline 0.45% IV 50 mls/hr .Q20H MELANY Administration Ceftriaxone Sodium 1 gm/ 100 mls @ 200 mls/hr 06/07/23 12:00 06/08/23 09:14 Sodium Chloride IV Infused DAILY MELANY Infusion Insulin Human Lispro 2 - 10 unit 06/07/23 17:00 06/08/23 13:30 Insulin Lispro 300 Unit/3 Ml Pen SUBQ 2 unit 0800,1200,1700,2100 MELANY Administration Protocol Ondansetron HCl 4 mg 06/05/23 17:33 06/06/23 06:24 Ondansetron 4 Mg/2 Ml Vial IVP 4 mg Q6HR PRN Administration Nausea / Vomiting Pantoprazole Sodium 40 mg 06/07/23 12:00 06/08/23 06:07 Pantoprazole 40 Mg Vial IVP 40 mg QDAC MELANY Administration Prochlorperazine Edisylate 10 mg 06/06/23 00:26 06/07/23 01:05 Prochlorperazine 10 Mg/2 Ml Vial IVP 10 mg Q6HR PRN Administration Nausea / Vomiting Saccharomyces Boulardii 250 mg 06/06/23 08:00 06/08/23 09:14 Saccharomyces Boulardii 250 Mg Capsule PO Not Given BIDWM [facility] Sodium Chloride 10 ml 06/06/23 01:00 06/08/23 09:18 Sodium Chloride Flush 0.9% 10 Ml Syringe IVP Not Given 0100,0900,1700 [facility] Sucralfate 1 gm 06/05/23 22:00 06/08/23 15:22 Sucralfate 1 Gm/10 Ml Udc PO Not Given 0700,1100,1600,2200 [facility] - Lab Result Fish Bone Diagrams: 06/08/23 05:37 06/08/23 05:37 Subjective - Subjective Patient Reports: Feeling Better Nursing Reports: No Complaints Objective Vital Signs: Vital Signs - 24 hr 06/07/23 06/07/23 06/08/23 20:06 23:42 03:04 Temperature 36.4 C L 36.6 C 36.7 C Heart Rate [ 99 91 88 Brachial] Respiratory 24 16 16 Rate Blood Pressure 150/71 H 132/56 H 158/68 H [Left Brachial artery] O2 Saturation 100 100 100 06/08/23 06/08/23 07:16 11:35 Temperature 36.4 C L 36.3 C L Heart Rate [ 89 84 Brachial] Respiratory 20 16 Rate Blood Pressure 159/55 H 162/55 H [Left Brachial artery] O2 Saturation 100 99 Oxygen O2 Source Room air I&O (Last 24 Hrs): Intake and Output Totals x24h 06/06/23 06/07/23 06/08/23 23:59 23:59 23:59 Intake Total 3400 3160.000 1327 Output Total 2275 1375 1000 Balance 1125 1785.000 327 General: Alert, No acute distress HEENT: Atraumatic Neuro: Alert, Non Focal Cardiovascular: Regular rate, Normal S1, Normal S2 Respiratory: Chest non-tender Abdomen: Normal bowel sounds, Soft Skin: No rashes - Results Results: Laboratory Results WBC 15.9 x10^3/uL (4.8-10.8) H 06/08/23 05:37 RBC 2.99 10^6/uL (4.20-5.40) L 06/08/23 05:37 Hgb 9.3 g/dL (12.0-16.0) L 06/08/23 05:37 Hct 27.4 % (37.0-47.0) L 06/08/23 05:37 MCV 91.6 fL (81.0-99.0) 06/08/23 05:37 MCH 31.1 pg (27.0-31.0) H 06/08/23 05:37 MCHC 33.9 g/dL (32.0-36.0) 06/08/23 05:37 RDW 13.4 % (12.0-15.0) 06/08/23 05:37 Plt Count 350 10^3/uL (130-450) 06/08/23 05:37 MPV 8.9 fL (7.9-10.8) 06/08/23 05:37 Neut # (Auto) Not Reportable 06/05/23 15:02 Lymph # (Auto) Not Reportable 06/05/23 15:02 [place] # (Auto) Not Reportable 06/05/23 15:02 Eos # (Auto) Not Reportable 06/05/23 15:02 Baso # (Auto) Not Reportable 06/05/23 15:02 Absolute Nucleated RBC Not Reportable 06/05/23 15:02 Total Counted 100 06/05/23 15:02 Band Neuts % (Manual) 0 % (0-10) 06/05/23 15:02 Abnorm Lymph % (Manual) 0 % 06/05/23 15:02 Nucleated RBC % Not Reportable 06/05/23 15:02 Neutrophils # (Manual) 21.7 10^3/uL (1.5-6.6) H 06/05/23 15:02 Lymphocytes # (Manual) 1.2 10^3/uL (1.5-3.5) L 06/05/23 15:02 Monocytes # (Manual) 1.2 10^3/uL (0.0-1.0) H 06/05/23 15:02 Eosinophils # (Manual) 0.0 10^3/uL (0-0.7) 06/05/23 15:02 Basophils # (Manual) 0.0 10^3/uL (0-0.1) 06/05/23 15:02 Differential Comment MANUAL DIFFERENTIAL 06/05/23 15:02 WBC Morphology NORMAL APPEARANCE (NORMAL) 06/05/23 15:02 Platelet Estimate NORMAL (130-450,000) (NORMAL) 06/05/23 15:02 Platelet Morphology NORMAL APPEARANCE (NORMAL) 06/05/23 15:02 RBC Morph Micro Appear NORMAL APPEARANCE (NORMAL) 06/05/23 15:02 Sodium 141 mmol/L (135-145) 06/08/23 05:37 Potassium 3.4 mmol/L (3.5-4.5) L 06/08/23 05:37 Chloride 102 mmol/L (101-111) 06/08/23 05:37 Carbon Dioxide 32 mmol/L (21-32) 06/08/23 05:37 Anion Gap 7.0 (6-13) 06/08/23 05:37 BUN 13 mg/dL (6-20) 06/08/23 05:37 Creatinine 0.6 mg/dL (0.6-1.3) 06/08/23 05:37 Estimated GFR (MDRD) 96 (>89) 06/08/23 05:37 Glucose 156 mg/dL (74-104) H 06/08/23 05:37 POC Whole Bld Glucose 208 mg/dL (70 - 100) H 06/08/23 16:39 Estimat Average Glucose 200 mg/dL (70-100) H 06/05/23 15:02 Hemoglobin A1c % 8.6 % (4.27-6.07) H 06/05/23 15:02 Lactic Acid 1.7 mmol/L (0.5-2.2) 06/05/23 15:02 Calcium 8.4 mg/dL (8.5-10.3) L 06/08/23 05:37 Magnesium 1.7 mg/dL (1.7-2.3) 06/07/23 03:59 Total Bilirubin 1.1 mg/dL (0.2-1.0) H 06/05/23 15:02 AST 18 IU/L (10-42) 06/05/23 15:02 ALT 14 IU/L (10-60) 06/05/23 15:02 Alkaline Phosphatase 92 IU/L (42-121) 06/05/23 15:02 Total Protein 6.7 g/dL (6.4-8.9) 06/05/23 15:02 Albumin 3.3 g/dL (3.2-5.5) 06/05/23 15:02 Globulin 3.4 g/dL (2.1-4.2) 06/05/23 15:02 Albumin/Globulin Ratio 1.0 (1.0-2.2) 06/05/23 15:02 Urine Color YELLOW 06/05/23 15:45 Urine Clarity CLOUDY (CLEAR) 06/05/23 15:45 Urine pH 5.0 PH (5.0-7.5) 06/05/23 15:45 Ur Specific [place]roberts 1.025 (1.002-1.030) 06/05/23 15:45 Urine Protein 30 mg/dL (NEGATIVE) H 06/05/23 15:45 Urine Glucose (UA) >=1000 mg/dL (NEGATIVE) H 06/05/23 15:45 Urine Ketones 40 mg/dL (NEGATIVE) H 06/05/23 15:45 Urine Occult Blood MODERATE (NEGATIVE) H 06/05/23 15:45 Urine Nitrite NEGATIVE (NEGATIVE) 06/05/23 15:45 Urine Bilirubin NEGATIVE (NEGATIVE) 06/05/23 15:45 Urine Urobilinogen 1 (NORMAL) E.U./dL (NORMAL) 06/05/23 15:45 Ur Leukocyte Esterase TRACE (NEGATIVE) H 06/05/23 15:45 Urine RBC 6-10 /HPF (0-5) H 06/05/23 15:45 Urine WBC >25 /HPF (0-5) H 06/05/23 15:45 Ur Squamous Epith Cells FEW Squamous (<= Few) 06/05/23 15:45 Urine Bacteria Many /HPF (None Seen) H 06/05/23 15:45 Urine Culture Comments INDICATED 06/05/23 15:45 Urine Osmolality 593 mOsmol/kg (.) 06/07/23 14:36 Urine Sodium 137.8 mmol/L 06/07/23 14:36 ABX Reporting Has patient been on IV antibiotics over the past 48 hours?: Yes
[2023-06-09] MEDS: SODIUM CHLORIDE FLUSH 0.9% 10 ML SYRINGE IVP SCH ×3 (00:35→16:02)
[2023-06-09] MEDS: SODIUM CHLORIDE 0.45% 1,000 ML IV SCH ×2 (03:39→21:48)
[2023-06-09] MEDS: SODIUM CHLORIDE FLUSH 0.9% 10 ML SYRINGE IVP PRN (06:23)
[2023-06-09] MEDS: SUCRALFATE 1 GM/10 ML UDC PO SCH ×4 (06:23→21:43)
[2023-06-09] MEDS: PANTOPRAZOLE 40 MG VIAL IVP SCH (06:23)
[2023-06-09 07:55] LABS: HCT - HEMATOCRIT 26.1 % (37.0-47.0); HGB - HEMOGLOBIN 9.1 g/dL (12.0-16.0); MEAN CORPUSCULAR HEMOGLOBIN 31.9 pg (27.0-31.0); MEAN CORPUSCULAR HGB CONC 34.9 g/dL (32.0-36.0); MEAN CORPUSCULAR VOLUME 91.6 fL (81.0-99.0); MEAN PLATELET VOLUME 9.2 fL (7.9-10.8); RED BLOOD COUNT 2.85 10^6/uL (4.20-5.40); RED CELL DISTRIBUTION WIDTH 13.2 % (12.0-15.0); WHITE BLOOD COUNT 13.9 x10^3/uL (4.8-10.8)
[2023-06-09 08:10] LABS: CREATININE 0.6 mg/dL (0.6-1.3); POTASSIUM 2.7 mmol/L (3.5-4.5)
[2023-06-09] MEDS: SACCHAROMYCES BOULARDII 250 MG CAPSULE PO SCH ×2 (08:10→17:18)
[2023-06-09] MEDS: INSULIN LISPRO 300 UNIT/3 ML PEN SUBQ SCH ×4 (08:12→21:41)
[2023-06-09] MEDS: cefTRIAXone 1 GM in SODIUM CHLORIDE 0.9% MINIBAG 100 ML IV SCH (09:08)
[2023-06-09] MEDS: ENOXAPARIN 40 MG/0.4 ML SYRINGE SUBQ SCH (10:09)
--- NOTE | 2023-06-09 13:16 | PROVIDER PROGRESS NOTE ---
Assessment/Plan - Problem List (1) Bacteremia, escherichia coli Assessment/Plan: (1) Acute metabolic encephalopathy Assessment/Plan: This is likely multifactorial: From her UTI infection, Now proven to be with bacteremia, and from dehydration. In addition the CT abdomen/pelvis showed that she has gastric wall thickening consistent with gastritis, and the rectum showed proctitis. This could be another reason for her recent poor appetite. Head CT is unremarkable Plan: We will continue with IV fluids [employer]CH[employer]ICIAN eval ordered as pt taking little PO, concern for aspiration risk Continue with IV antibiotics Continue electrolyte replacement Neurochecks every shift Supportive care (2) Urinary tract infection Qualifiers: Urinary tract infection type: acute cystitis (3) Hypernatremia Assessment/Plan: Stable at 147, likely 2/2 to decreased PO intake Will check urine Na and Osm (4) Chronic indwelling Gil[place] catheter Assessment/Plan: Pt arrived with Gil[place] - given bacteremia, will change current gilmore, insert new one. (5) Hypokalemia Assessment/Plan: Persistent, likely 2/2 to decreased PO intake. Replaced this am, still 3.0. Will replace another 40 meq IV (6) DM type 2 (diabetes mellitus, type 2) Assessment/Plan: BS have been elevated, but pt with minimal PO intake Cont sliding scale correction for now, pending clarity in diet and PO intake. (7) Status post hip surgery Assessment/Plan: May need damian removed. Cont PT when able to participate. (8) Gastritis Qualifiers: Gastritis bleeding: without bleeding Assessment/Plan: Radiographic finding Cont protonix, switch to IV since she's not taking PO (9) Bacteremia, escherichia coli Assessment/Plan: Patient admitted with UTI, urine culture grew E. coli Followed by pulm culture also showing E. coli which is pansensitive. May be contributing to patient's acute metabolic encephalopathy. Patient is hemodynamically stable, not septic. Continue IV ceftriaxone. Will likely require 10 to 14 days and IV to p.o. transition will depend on patient's ability to tolerate oral meds. (2) Severe protein-calorie malnutrition Assessment/Plan: Patient has nutrition intake of less than 50% of recommended intake for 2 weeks or more. Weight loss approximately 33% in 6 months. Patient was in December 72 kg and currently 48 kg. - Current Meds Current Meds: Current Medications Generic Name Dose Route Start Last Admin Trade Name Freq PRN Reason Stop Dose Admin Enoxaparin Sodium 40 mg 06/06/23 09:00 06/09/23 10:09 Enoxaparin 40 Mg/0.4 Ml Syringe SUBQ 40 mg DAILY MELANY Administration Sodium Chloride 1,000 mls @ 50 mls/hr 06/07/23 09:00 06/09/23 03:39 Normal Saline 0.45% IV 50 mls/hr .Q20H MELANY Administration Ceftriaxone Sodium 1 gm/ 100 mls @ 200 mls/hr 06/07/23 12:00 06/09/23 10:19 Sodium Chloride IV Infused DAILY MELANY Infusion Insulin Human Lispro 2 - 10 unit 06/07/23 17:00 06/09/23 12:01 Insulin Lispro 300 Unit/3 Ml Pen SUBQ 4 unit 0800,1200,1700,2100 MELANY Administration Protocol Ondansetron HCl 4 mg 06/05/23 17:33 06/06/23 06:24 Ondansetron 4 Mg/2 Ml Vial IVP 4 mg Q6HR PRN Administration Nausea / Vomiting Pantoprazole Sodium 40 mg 06/07/23 12:00 06/09/23 06:23 Pantoprazole 40 Mg Vial IVP 40 mg QDAC MELANY Administration Prochlorperazine Edisylate 10 mg 06/06/23 00:26 06/07/23 01:05 Prochlorperazine 10 Mg/2 Ml Vial IVP 10 mg Q6HR PRN Administration Nausea / Vomiting Saccharomyces Boulardii 250 mg 06/06/23 08:00 06/09/23 08:10 Saccharomyces Boulardii 250 Mg Capsule PO 250 mg BIDWM MELANY Administration Sodium Chloride 10 ml 06/05/23 17:33 06/09/23 06:23 Sodium Chloride Flush 0.9% 10 Ml Syringe IVP 10 ml PRN PRN Administration NEEDED PER PROVIDER ORDERS Sodium Chloride 10 ml 06/06/23 01:00 06/09/23 10:09 Sodium Chloride Flush 0.9% 10 Ml Syringe IVP 10 ml 0100,0900,1700 MELANY Administration Sucralfate 1 gm 06/05/23 22:00 06/09/23 11:16 Sucralfate 1 Gm/10 Ml Udc PO 1 gm 0700,1100,1600,2200 MELANY Administration - Lab Result Fish Bone Diagrams: 06/09/23 07:39 06/09/23 07:39 Subjective - Subjective Patient Reports: Resting Comfortably Objective Vital Signs: Vital Signs - 24 hr 06/08/23 06/08/23 06/09/23 16:44 20:53 01:00 Temperature 36.5 C 36.7 C 36.6 C Heart Rate [ 83 84 85 Brachial] Respiratory 16 16 16 Rate Blood Pressure 131/60 H [Left Brachial artery] Blood Pressure 122/41 L 130/64 [Right Brachial artery] O2 Saturation 100 99 100 06/09/23 06/09/23 06/09/23 05:00 07:40 12:24 Temperature 36.3 C L 36.3 C L 36.3 C L Heart Rate [ 82 75 84 Brachial] Respiratory 16 16 16 Rate Blood Pressure 124/47 L [Left Brachial artery] Blood Pressure 116/61 141/57 H [Right Brachial artery] O2 Saturation 100 99 100 Oxygen O2 Source Room air I&O (Last 24 Hrs): Intake and Output Totals x24h 06/07/23 06/08/23 06/09/23 23:59 23:59 23:59 Intake Total 3160.000 1564 1400 Output Total 1375 1125 325 Balance 1785.779 967 1023 General: Alert Neck: Supple Neuro: Alert, Non Focal Cardiovascular: Regular rate, Normal S1, Normal S2 Respiratory: Breath sounds nml Abdomen: Normal bowel sounds, Soft Extremities: No tenderness/swelling Skin: No rashes - Results Results: Laboratory Results WBC 13.9 x10^3/uL (4.8-10.8) H 06/09/23 07:39 RBC 2.85 10^6/uL (4.20-5.40) L 06/09/23 07:39 Hgb 9.1 g/dL (12.0-16.0) L 06/09/23 07:39 Hct 26.1 % (37.0-47.0) L 06/09/23 07:39 MCV 91.6 fL (81.0-99.0) 06/09/23 07:39 MCH 31.9 pg (27.0-31.0) H 06/09/23 07:39 MCHC 34.9 g/dL (32.0-36.0) 06/09/23 07:39 RDW 13.2 % (12.0-15.0) 06/09/23 07:39 Plt Count 336 10^3/uL (130-450) 06/09/23 07:39 MPV 9.2 fL (7.9-10.8) 06/09/23 07:39 Neut # (Auto) Not Reportable 06/05/23 15:02 Lymph # (Auto) Not Reportable 06/05/23 15:02 [place] # (Auto) Not Reportable 06/05/23 15:02 Eos # (Auto) Not Reportable 06/05/23 15:02 Baso # (Auto) Not Reportable 06/05/23 15:02 Absolute Nucleated RBC Not Reportable 06/05/23 15:02 Total Counted 100 06/05/23 15:02 Band Neuts % (Manual) 0 % (0-10) 06/05/23 15:02 Abnorm Lymph % (Manual) 0 % 06/05/23 15:02 Nucleated RBC % Not Reportable 06/05/23 15:02 Neutrophils # (Manual) 21.7 10^3/uL (1.5-6.6) H 06/05/23 15:02 Lymphocytes # (Manual) 1.2 10^3/uL (1.5-3.5) L 06/05/23 15:02 Monocytes # (Manual) 1.2 10^3/uL (0.0-1.0) H 06/05/23 15:02 Eosinophils # (Manual) 0.0 10^3/uL (0-0.7) 06/05/23 15:02 Basophils # (Manual) 0.0 10^3/uL (0-0.1) 06/05/23 15:02 Differential Comment MANUAL DIFFERENTIAL 06/05/23 15:02 WBC Morphology NORMAL APPEARANCE (NORMAL) 06/05/23 15:02 Platelet Estimate NORMAL (130-450,000) (NORMAL) 06/05/23 15:02 Platelet Morphology NORMAL APPEARANCE (NORMAL) 06/05/23 15:02 RBC Morph Micro Appear NORMAL APPEARANCE (NORMAL) 06/05/23 15:02 Sodium 138 mmol/L (135-145) 06/09/23 07:39 Potassium 2.7 mmol/L (3.5-4.5) L 06/09/23 07:39 Chloride 100 mmol/L (101-111) L 06/09/23 07:39 Carbon Dioxide 32 mmol/L (21-32) 06/09/23 07:39 Anion Gap 6.0 (6-13) 06/09/23 07:39 BUN 14 mg/dL (6-20) 06/09/23 07:39 Creatinine 0.6 mg/dL (0.6-1.3) 06/09/23 07:39 Estimated GFR (MDRD) 96 (>89) 06/09/23 07:39 Glucose 130 mg/dL (74-104) H 06/09/23 07:39 POC Whole Bld Glucose 189 mg/dL (70 - 100) H 06/09/23 10:59 Estimat Average Glucose 200 mg/dL (70-100) H 06/05/23 15:02 Hemoglobin A1c % 8.6 % (4.27-6.07) H 06/05/23 15:02 Lactic Acid 1.7 mmol/L (0.5-2.2) 06/05/23 15:02 Calcium 8.0 mg/dL (8.5-10.3) L 06/09/23 07:39 Magnesium 1.7 mg/dL (1.7-2.3) 06/07/23 03:59 Total Bilirubin 1.1 mg/dL (0.2-1.0) H 06/05/23 15:02 AST 18 IU/L (10-42) 06/05/23 15:02 ALT 14 IU/L (10-60) 06/05/23 15:02 Alkaline Phosphatase 92 IU/L (42-121) 06/05/23 15:02 Total Protein 6.7 g/dL (6.4-8.9) 06/05/23 15:02 Albumin 3.3 g/dL (3.2-5.5) 06/05/23 15:02 Globulin 3.4 g/dL (2.1-4.2) 06/05/23 15:02 Albumin/Globulin Ratio 1.0 (1.0-2.2) 06/05/23 15:02 Urine Color YELLOW 06/05/23 15:45 Urine Clarity CLOUDY (CLEAR) 06/05/23 15:45 Urine pH 5.0 PH (5.0-7.5) 06/05/23 15:45 Ur Specific [place] 1.025 (1.002-1.030) 06/05/23 15:45 Urine Protein 30 mg/dL (NEGATIVE) H 06/05/23 15:45 Urine Glucose (UA) >=1000 mg/dL (NEGATIVE) H 06/05/23 15:45 Urine Ketones 40 mg/dL (NEGATIVE) H 06/05/23 15:45 Urine Occult Blood MODERATE (NEGATIVE) H 06/05/23 15:45 Urine Nitrite NEGATIVE (NEGATIVE) 06/05/23 15:45 Urine Bilirubin NEGATIVE (NEGATIVE) 06/05/23 15:45 Urine Urobilinogen 1 (NORMAL) E.U./dL (NORMAL) 06/05/23 15:45 Ur Leukocyte Esterase TRACE (NEGATIVE) H 06/05/23 15:45 Urine RBC 6-10 /HPF (0-5) H 06/05/23 15:45 Urine WBC >25 /HPF (0-5) H 06/05/23 15:45 Ur Squamous Epith Cells FEW Squamous (<= Few) 06/05/23 15:45 Urine Bacteria Many /HPF (None Seen) H 06/05/23 15:45 Urine Culture Comments INDICATED 06/05/23 15:45 Urine Osmolality 593 mOsmol/kg (.) 06/07/23 14:36 Urine Sodium 137.8 mmol/L 06/07/23 14:36 ABX Reporting Has patient been on IV antibiotics over the past 48 hours?: Yes
[2023-06-10] MEDS: SODIUM CHLORIDE FLUSH 0.9% 10 ML SYRINGE IVP SCH ×4 (00:15→23:36)
[2023-06-10] MEDS: PANTOPRAZOLE 40 MG VIAL IVP SCH (06:24)
[2023-06-10] MEDS: SODIUM CHLORIDE FLUSH 0.9% 10 ML SYRINGE IVP PRN (06:24)
[2023-06-10] MEDS: SUCRALFATE 1 GM/10 ML UDC PO SCH ×4 (06:24→20:57)
[2023-06-10] MEDS: SACCHAROMYCES BOULARDII 250 MG CAPSULE PO SCH ×2 (08:20→16:59)
[2023-06-10] MEDS: INSULIN LISPRO 300 UNIT/3 ML PEN SUBQ SCH ×4 (08:20→20:58)
[2023-06-10] MEDS: cefTRIAXone 1 GM in SODIUM CHLORIDE 0.9% MINIBAG 100 ML IV SCH (08:20)
[2023-06-10] MEDS: ENOXAPARIN 40 MG/0.4 ML SYRINGE SUBQ SCH (08:21)
[2023-06-10 09:37] LABS: BASOPHILS % (AUTO) 0.1 %; EOSINOPHILS # (AUTO) 0.1 10^3/uL (0.0-0.7); EOSINOPHILS % (AUTO) 0.8 %; HGB - HEMOGLOBIN 9.3 g/dL (12.0-16.0); LYMPHOCYTES # (AUTO) 1.8 10^3/uL (1.5-3.5); LYMPHOCYTES % (AUTO) 12.4 %; MEAN CORPUSCULAR HEMOGLOBIN 31.7 pg (27.0-31.0); MEAN CORPUSCULAR HGB CONC 34.4 g/dL (32.0-36.0); MEAN CORPUSCULAR VOLUME 92.2 fL (81.0-99.0); MEAN PLATELET VOLUME 9.4 fL (7.9-10.8); MONOCYTES # (AUTO) 0.9 10^3/uL (0.0-1.0); MONOCYTES % (AUTO) 6.5 %; NEUTROPHILS % (AUTO) 77.9 %; PLT - PLATELET COUNT 332 10^3/uL (130-450); RED BLOOD COUNT 2.93 10^6/uL (4.20-5.40); RED CELL DISTRIBUTION WIDTH 13.5 % (12.0-15.0); WHITE BLOOD COUNT 14.1 x10^3/uL (4.8-10.8)
[2023-06-10 09:48] LABS: CALCIUM 7.8 mg/dL (8.5-10.3); CREATININE 0.6 mg/dL (0.6-1.3); POTASSIUM 2.8 mmol/L (3.5-4.5)
[2023-06-10] MEDS ORDERED: POTASSIUM CHLORIDE 20 MEQ TABLET PO ONE (10:30)
--- NOTE | 2023-06-10 14:06 | PROVIDER PROGRESS NOTE ---
Assessment/Plan - Problem List (1) Bacteremia, escherichia coli Assessment/Plan: (1) Acute metabolic encephalopathy Assessment/Plan: This is likely multifactorial: From her UTI infection, Now proven to be with bacteremia, and from dehydration. In addition the CT abdomen/pelvis showed that she has gastric wall thickening consistent with gastritis, and the rectum showed proctitis. This could be another reason for her recent poor appetite. Head CT is unremarkable Plan: We will continue with IV fluids RESIN COATER eval ordered as pt taking little PO, concern for aspiration risk Continue with IV antibiotics Continue electrolyte replacement Neurochecks every shift Supportive care 06/10- Resolved encephalopathy over past few days. Able to take po without problems (2) Urinary tract infection Qualifiers: Urinary tract infection type: acute cystitis (3) Hypernatremia Assessment/Plan: Stable at 147, likely 2/2 to decreased PO intake Will check urine Na and Osm 06/10-Na is 133 (4) Chronic indwelling Gil[place] catheter Assessment/Plan: Pt arrived with Gil[place] - given bacteremia, will change current gilmore, insert new one. (5) Hypokalemia Assessment/Plan: Persistent, likely 2/2 to decreased PO intake. Monitor and replete ap propriately. (6) DM type 2 (diabetes mellitus, type 2) Assessment/Plan: BS have been elevated, but pt with minimal PO intake Cont sliding scale correction for now, pending clarity in diet and PO intake. (7) Status post hip surgery Assessment/Plan: May need damian removed. Cont PT when able to participate. (8) Gastritis Qualifiers: Gastritis bleeding: without bleeding Assessment/Plan: Radiographic finding Cont protonix, (9) Bacteremia, escherichia coli Assessment/Plan: Patient admitted with UTI, urine culture grew E. coli Followed by pulm culture also showing E. coli which is pansensitive. May be contributing to patient's acute metabolic encephalopathy. Patient is hemodynamically stable, not septic. Continue IV ceftriaxone. Will likely require 10 to 14 days and IV to p.o. transition will depend on patient's ability to tolerate oral meds. (2) Severe protein-calorie malnutrition Assessment/Plan: Patient has nutrition intake of less than 50% of recommended intake for 2 weeks or more. Weight loss approximately 33% in 6 months. Patient was in December 72 kg and currently 48 kg. - Current Meds Current Meds: Current Medications Generic Name Dose Route Start Last Admin Trade Name Freq PRN Reason Stop Dose Admin Enoxaparin Sodium 40 mg 06/06/23 09:00 06/10/23 08:21 Enoxaparin 40 Mg/0.4 Ml Syringe SUBQ 40 mg DAILY MELANY Administration Sodium Chloride 1,000 mls @ 50 mls/hr 06/07/23 09:00 06/09/23 21:48 Normal Saline 0.45% IV 50 mls/hr .Q20H MELANY Administration Ceftriaxone Sodium 1 gm/ 100 mls @ 200 mls/hr 06/07/23 12:00 06/10/23 08:50 Sodium Chloride IV Infused DAILY MELANY Infusion Insulin Human Lispro 2 - 10 unit 06/07/23 17:00 06/10/23 11:54 Insulin Lispro 300 Unit/3 Ml Pen SUBQ 4 unit 0800,1200,1700,2100 MELANY Administration Protocol Ondansetron HCl 4 mg 06/05/23 17:33 06/06/23 06:24 Ondansetron 4 Mg/2 Ml Vial IVP 4 mg Q6HR PRN Administration Nausea / Vomiting Pantoprazole Sodium 40 mg 06/07/23 12:00 06/10/23 06:24 Pantoprazole 40 Mg Vial IVP 40 mg QDAC MELANY Administration Prochlorperazine Edisylate 10 mg 06/06/23 00:26 06/07/23 01:05 Prochlorperazine 10 Mg/2 Ml Vial IVP 10 mg Q6HR PRN Administration Nausea / Vomiting Saccharomyces Boulardii 250 mg 06/06/23 08:00 06/10/23 08:20 Saccharomyces Boulardii 250 Mg Capsule PO 250 mg BIDWM MELANY Administration Sodium Chloride 10 ml 06/05/23 17:33 06/10/23 06:24 Sodium Chloride Flush 0.9% 10 Ml Syringe IVP 10 ml PRN PRN Administration NEEDED PER PROVIDER ORDERS Sodium Chloride 10 ml 06/06/23 01:00 06/10/23 08:21 Sodium Chloride Flush 0.9% 10 Ml Syringe IVP Not Given 0100,0900,1700 [facility] Sucralfate 1 gm 06/05/23 22:00 06/10/23 11:54 Sucralfate 1 Gm/10 Ml Udc PO 1 gm 0700,1100,1600,2200 MELANY Administration - Lab Result Fish Bone Diagrams: 06/10/23 09:21 06/10/23 09:21 - Additional Planning My Orders: My Active Orders 06/11/23 05:00 BMP - BASIC METABOLIC PANEL [CHEM] DAILYLAB CBC - COMP BLD CT W/AUTO DIFF [HEME] DAILYLAB 06/12/23 05:00 BMP - BASIC METABOLIC PANEL [CHEM] DAILYLAB CBC - COMP BLD CT W/AUTO DIFF [HEME] DAILYLAB 06/13/23 05:00 BMP - BASIC METABOLIC PANEL [CHEM] DAILYLAB CBC - COMP BLD CT W/AUTO DIFF [HEME] DAILYLAB 06/14/23 05:00 BMP - BASIC METABOLIC PANEL [CHEM] DAILYLAB CBC - COMP BLD CT W/AUTO DIFF [HEME] DAILYLAB Subjective - Subjective Patient Reports: Other (comfortable ,resting) Objective Vital Signs: Vital Signs - 24 hr 06/09/23 06/09/23 06/10/23 15:34 20:01 00:31 Temperature 36.2 C L 36.5 C 36.3 C L Heart Rate [ 84 79 73 Brachial] Respiratory 20 20 20 Rate Blood Pressure 113/50 L 124/52 L [Left Brachial artery] Blood Pressure 101/53 L [Right Brachial artery] O2 Saturation 100 100 100 06/10/23 06/10/23 06/10/23 05:45 07:24 12:43 Temperature 36.6 C 36.4 C L 36.2 C L Heart Rate [ 82 80 80 Brachial] Respiratory 16 16 20 Rate Blood Pressure [Left Brachial artery] Blood Pressure 141/47 H 133/57 H 123/56 L [Right Brachial artery] O2 Saturation 100 100 100 Oxygen O2 Source Room air I&O (Last 24 Hrs): Intake and Output Totals x24h 06/08/23 06/09/23 06/10/23 23:59 23:59 23:59 Intake Total 1564 2367.5 460 Output Total 1125 675 125 Balance 439 1692.5 335 General: Alert, No acute distress HEENT: Atraumatic Neck: Supple Neuro: Alert, Non Focal Cardiovascular: Regular rate, Normal S1, Normal S2 Respiratory: Breath sounds nml Abdomen: Soft Extremities: No edema - Results Results: Laboratory Results WBC 14.1 x10^3/uL (4.8-10.8) H 06/10/23 09:21 RBC 2.93 10^6/uL (4.20-5.40) L 06/10/23 09:21 Hgb 9.3 g/dL (12.0-16.0) L 06/10/23 09:21 Hct 27.0 % (37.0-47.0) L 06/10/23 09:21 MCV 92.2 fL (81.0-99.0) 06/10/23 09:21 MCH 31.7 pg (27.0-31.0) H 06/10/23 09:21 MCHC 34.4 g/dL (32.0-36.0) 06/10/23 09:21 RDW 13.5 % (12.0-15.0) 06/10/23 09:21 Plt Count 332 10^3/uL (130-450) 06/10/23 09:21 MPV 9.4 fL (7.9-10.8) 06/10/23 09:21 Neut # (Auto) 11.0 10^3/uL (1.5-6.6) H 06/10/23 09:21 Lymph # (Auto) 1.8 10^3/uL (1.5-3.5) 06/10/23 09:21 [place] # (Auto) 0.9 10^3/uL (0.0-1.0) 06/10/23 09:21 Eos # (Auto) 0.1 10^3/uL (0.0-0.7) 06/10/23 09:21 Baso # (Auto) 0.0 10^3/uL (0.0-0.1) 06/10/23 09:21 Absolute Nucleated RBC 0.00 x10^3/uL 06/10/23 09:21 Total Counted 100 06/05/23 15:02 Band Neuts % (Manual) 0 % (0-10) 06/05/23 15:02 Abnorm Lymph % (Manual) 0 % 06/05/23 15:02 Nucleated RBC % 0.0 /100WBC 06/10/23 09:21 Neutrophils # (Manual) 21.7 10^3/uL (1.5-6.6) H 06/05/23 15:02 Lymphocytes # (Manual) 1.2 10^3/uL (1.5-3.5) L 06/05/23 15:02 Monocytes # (Manual) 1.2 10^3/uL (0.0-1.0) H 06/05/23 15:02 Eosinophils # (Manual) 0.0 10^3/uL (0-0.7) 06/05/23 15:02 Basophils # (Manual) 0.0 10^3/uL (0-0.1) 06/05/23 15:02 Differential Comment MANUAL DIFFERENTIAL 06/05/23 15:02 WBC Morphology NORMAL APPEARANCE (NORMAL) 06/05/23 15:02 Platelet Estimate NORMAL (130-450,000) (NORMAL) 06/05/23 15:02 Platelet Morphology NORMAL APPEARANCE (NORMAL) 06/05/23 15:02 RBC Morph Micro Appear NORMAL APPEARANCE (NORMAL) 06/05/23 15:02 Sodium 133 mmol/L (135-145) L 06/10/23 09:21 Potassium 2.8 mmol/L (3.5-4.5) L 06/10/23 09:21 Chloride 98 mmol/L (101-111) L 06/10/23 09:21 Carbon Dioxide 31 mmol/L (21-32) 06/10/23 09:21 Anion Gap 4.0 (6-13) L 06/10/23 09:21 BUN 14 mg/dL (6-20) 06/10/23 09:21 Creatinine 0.6 mg/dL (0.6-1.3) 06/10/23 09:21 Estimated GFR (MDRD) 96 (>89) 06/10/23 09:21 Glucose 172 mg/dL (74-104) H 06/10/23 09:21 POC Whole Bld Glucose 200 mg/dL (70 - 100) H 06/10/23 11:06 Estimat Average Glucose 200 mg/dL (70-100) H 06/05/23 15:02 Hemoglobin A1c % 8.6 % (4.27-6.07) H 06/05/23 15:02 Lactic Acid 1.7 mmol/L (0.5-2.2) 06/05/23 15:02 Calcium 7.8 mg/dL (8.5-10.3) L 06/10/23 09:21 Magnesium 1.7 mg/dL (1.7-2.3) 06/07/23 03:59 Total Bilirubin 1.1 mg/dL (0.2-1.0) H 06/05/23 15:02 AST 18 IU/L (10-42) 06/05/23 15:02 ALT 14 IU/L (10-60) 06/05/23 15:02 Alkaline Phosphatase 92 IU/L (42-121) 06/05/23 15:02 Total Protein 6.7 g/dL (6.4-8.9) 06/05/23 15:02 Albumin 3.3 g/dL (3.2-5.5) 06/05/23 15:02 Globulin 3.4 g/dL (2.1-4.2) 06/05/23 15:02 Albumin/Globulin Ratio 1.0 (1.0-2.2) 06/05/23 15:02 Urine Color YELLOW 06/05/23 15:45 Urine Clarity CLOUDY (CLEAR) 06/05/23 15:45 Urine pH 5.0 PH (5.0-7.5) 06/05/23 15:45 Ur Specific [place] 1.025 (1.002-1.030) 06/05/23 15:45 Urine Protein 30 mg/dL (NEGATIVE) H 06/05/23 15:45 Urine Glucose (UA) >=1000 mg/dL (NEGATIVE) H 06/05/23 15:45 Urine Ketones 40 mg/dL (NEGATIVE) H 06/05/23 15:45 Urine Occult Blood MODERATE (NEGATIVE) H 06/05/23 15:45 Urine Nitrite NEGATIVE (NEGATIVE) 06/05/23 15:45 Urine Bilirubin NEGATIVE (NEGATIVE) 06/05/23 15:45 Urine Urobilinogen 1 (NORMAL) E.U./dL (NORMAL) 06/05/23 15:45 Ur Leukocyte Esterase TRACE (NEGATIVE) H 06/05/23 15:45 Urine RBC 6-10 /HPF (0-5) H 06/05/23 15:45 Urine WBC >25 /HPF (0-5) H 06/05/23 15:45 Ur Squamous Epith Cells FEW Squamous (<= Few) 06/05/23 15:45 Urine Bacteria Many /HPF (None Seen) H 06/05/23 15:45 Urine Culture Comments INDICATED 06/05/23 15:45 Urine Osmolality 593 mOsmol/kg (.) 06/07/23 14:36 Urine Sodium 137.8 mmol/L 06/07/23 14:36 ABX Reporting Has patient been on IV antibiotics over the past 48 hours?: Yes
[2023-06-10] MEDS: SODIUM CHLORIDE 0.45% 1,000 ML IV SCH (17:37)
[2023-06-11] MEDS: ACETAMINOPHEN 325 MG TABLET PO PRN (05:09)
[2023-06-11 06:16] LABS: BASOPHILS % (AUTO) 0.1 %; EOSINOPHILS # (AUTO) 0.1 10^3/uL (0.0-0.7); EOSINOPHILS % (AUTO) 0.5 %; HCT - HEMATOCRIT 25.8 % (37.0-47.0); HGB - HEMOGLOBIN 8.9 g/dL (12.0-16.0); LYMPHOCYTES % (AUTO) 13.3 %; MEAN CORPUSCULAR HGB CONC 34.5 g/dL (32.0-36.0); MEAN CORPUSCULAR VOLUME 92.8 fL (81.0-99.0); MEAN PLATELET VOLUME 9.7 fL (7.9-10.8); MONOCYTES # (AUTO) 1.1 10^3/uL (0.0-1.0); MONOCYTES % (AUTO) 7.3 %; NEUTROPHILS # (AUTO) 11.8 10^3/uL (1.5-6.6); NEUTROPHILS % (AUTO) 76.7 %; PLT - PLATELET COUNT 353 10^3/uL (130-450); RED BLOOD COUNT 2.78 10^6/uL (4.20-5.40); RED CELL DISTRIBUTION WIDTH 13.9 % (12.0-15.0); WHITE BLOOD COUNT 15.3 x10^3/uL (4.8-10.8)
[2023-06-11 06:29] LABS: CALCIUM 7.9 mg/dL (8.5-10.3); CREATININE 0.6 mg/dL (0.6-1.3); POTASSIUM 2.8 mmol/L (3.5-4.5)
[2023-06-11] MEDS: SUCRALFATE 1 GM/10 ML UDC PO SCH ×4 (07:10→20:47)
[2023-06-11] MEDS: SODIUM CHLORIDE FLUSH 0.9% 10 ML SYRINGE IVP PRN (07:10)
[2023-06-11] MEDS: PANTOPRAZOLE 40 MG VIAL IVP SCH (07:10)
[2023-06-11] MEDS ORDERED: POTASSIUM CHLORIDE 20 MEQ TABLET PO ONE (08:56)
[2023-06-11] MEDS: cefTRIAXone 1 GM in SODIUM CHLORIDE 0.9% MINIBAG 100 ML IV SCH (09:35)
[2023-06-11] MEDS: SACCHAROMYCES BOULARDII 250 MG CAPSULE PO SCH ×2 (09:35→16:47)
[2023-06-11] MEDS: INSULIN LISPRO 300 UNIT/3 ML PEN SUBQ SCH ×4 (09:36→20:47)
[2023-06-11] MEDS: SODIUM CHLORIDE FLUSH 0.9% 10 ML SYRINGE IVP SCH ×2 (09:36→16:48)
[2023-06-11] MEDS: ENOXAPARIN 40 MG/0.4 ML SYRINGE SUBQ SCH (09:37)
[2023-06-11] MEDS: SODIUM CHLORIDE 0.45% 1,000 ML IV SCH (14:26)
--- NOTE | 2023-06-11 14:38 | PROVIDER PROGRESS NOTE ---
Assessment/Plan - Problem List (1) Bacteremia, escherichia coli Assessment/Plan: (1) Acute metabolic encephalopathy Assessment/Plan: This is likely multifactorial: From her UTI infection, Now proven to be with bacteremia, and from dehydration. In addition the CT abdomen/pelvis showed that she has gastric wall thickening consistent with gastritis, and the rectum showed proctitis. This could be another reason for her recent poor appetite. 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 Able to take po without problems (2) Urinary tract infection Qualifiers: Urinary tract infection type: acute cystitis E coli UTI sensitive to Rocephin. (3) Hypernatremia Assessment/Plan: Stable at 147, likely 2/2 to decreased PO intake Will check urine Na and Osm 06/10-Na is 133 (4) Chronic indwelling Gilmore catheter Assessment/Plan: Pt arrived with Gilmore - given bacteremia, will change current gilmore, insert new one. (5) Hypokalemia Assessment/Plan: Persistent, likely 2/2 to decreased PO intake. Monitor and replete appropriately. 06/11-K is 2.8 so repleted and monitor. (6) DM type 2 (diabetes mellitus, type 2) Assessment/Plan: BS have been elevated, but pt with minimal PO intake Cont sliding scale correction for now, pending clarity in diet and PO intake. (7) Status post hip surgery Assessment/Plan: May need damian removed. Cont PT when able to participate. To return to [facility] for rehab post hip fx repair (8) Gastritis Qualifiers: Gastritis bleeding: without bleeding Assessment/Plan: Radiographic finding Cont protonix, (9) Bacteremia, escherichia coli Assessment/Plan: Patient admitted with UTI, urine culture grew E. coli Followed by blood culture also showing E. coli which is pansensitive. May be contributing to patient's acute metabolic encephalopathy. Patient is hemodynamically stable, not septic. Continue IV ceftriaxone. Will likely require 10 to 14 days and IV to p.o. transition will depend on patient's ability to tolerate oral meds. (2) Severe protein-calorie malnutrition Assessment/Plan: Patient has nutrition intake of less than 50% of recommended intake for 2 weeks or more. Weight loss approximately 33% in 6 months. Patient was in December 72 kg and currently 48 kg. - Current Meds Current Meds: Current Medications Generic Name Dose Route Start Last Admin Trade Name Freq PRN Reason Stop Dose Admin Acetaminophen 650 mg 06/05/23 17:33 06/11/23 05:09 Acetaminophen 325 Mg Tablet PO 650 mg Q4HR PRN Administration Pain 1 to 4, or Fever Enoxaparin Sodium 40 mg 06/06/23 09:00 06/11/23 09:37 Enoxaparin 40 Mg/0.4 Ml Syringe SUBQ 40 mg DAILY MELANY Administration Sodium Chloride 1,000 mls @ 50 mls/hr 06/07/23 09:00 06/11/23 14:26 Normal Saline 0.45% IV 50 mls/hr .Q20H MELANY Administration Ceftriaxone Sodium 1 gm/ 100 mls @ 200 mls/hr 06/07/23 12:00 06/11/23 10:10 Sodium Chloride IV Infused DAILY MELANY Infusion Insulin Human Lispro 2 - 10 unit 06/07/23 17:00 06/11/23 11:40 Insulin Lispro 300 Unit/3 Ml Pen SUBQ Not Given 0800,1200,1700,2100 [facility] Protocol Ondansetron HCl 4 mg 06/05/23 17:33 06/06/23 06:24 Ondansetron 4 Mg/2 Ml Vial IVP 4 mg Q6HR PRN Administration Nausea / Vomiting Pantoprazole Sodium 40 mg 06/07/23 12:00 06/11/23 07:10 Pantoprazole 40 Mg Vial IVP 40 mg QDAC MELANY Administration Prochlorperazine Edisylate 10 mg 06/06/23 00:26 06/07/23 01:05 Prochlorperazine 10 Mg/2 Ml Vial IVP 10 mg Q6HR PRN Administration Nausea / Vomiting Saccharomyces Boulardii 250 mg 06/06/23 08:00 06/11/23 09:35 Saccharomyces Boulardii 250 Mg Capsule PO 250 mg BIDWM MELANY Administration Sodium Chloride 10 ml 06/05/23 17:33 06/11/23 07:10 Sodium Chloride Flush 0.9% 10 Ml Syringe IVP 10 ml PRN PRN Administration NEEDED PER PROVIDER ORDERS Sodium Chloride 10 ml 06/06/23 01:00 06/11/23 09:36 Sodium Chloride Flush 0.9% 10 Ml Syringe IVP Not Given 0100,0900,1700 [facility] Sucralfate 1 gm 06/05/23 22:00 06/11/23 12:10 Sucralfate 1 Gm/10 Ml Udc PO 1 gm 0700,1100,1600,2200 MELANY Administration - Lab Result Fish Bone Diagrams: 06/11/23 05:43 06/11/23 05:43 - Additional Planning My Orders: My Active Orders 06/12/23 05:00 BMP - BASIC METABOLIC PANEL [CHEM] DAILYLAB CBC - COMP BLD CT W/AUTO DIFF [HEME] DAILYLAB 06/13/23 05:00 BMP - BASIC METABOLIC PANEL [CHEM] DAILYLAB CBC - COMP BLD CT W/AUTO DIFF [HEME] DAILYLAB 06/14/23 05:00 BMP - BASIC METABOLIC PANEL [CHEM] DAILYLAB CBC - COMP BLD CT W/AUTO DIFF [HEME] DAILYLAB Subjective - Subjective Patient Reports: Resting Comfortably Objective Vital Signs: Vital Signs - 24 hr 06/10/23 06/10/23 06/11/23 16:26 21:00 00:00 Temperature 36.2 C L 36.8 C 36.6 C Heart Rate [ 81 100 98 Brachial] Respiratory 18 18 18 Rate Blood Pressure [Left Brachial artery] Blood Pressure 125/45 L 122/45 L [Left Radial artery] Blood Pressure [Right Brachial artery] O2 Saturation 100 100 100 06/11/23 06/11/23 06/11/23 02:51 05:00 07:50 Temperature 36.6 C 36.7 C Heart Rate [ 79 83 Brachial] Respiratory 22 14 Rate Blood Pressure 129/49 L [Left Brachial artery] Blood Pressure 104/40 L [Left Radial artery] Blood Pressure 146/56 H [Right Brachial artery] O2 Saturation 100 100 06/11/23 06/11/23 06/11/23 11:59 12:00 12:15 Temperature 36.2 C L Heart Rate [ 96 93 93 Brachial] Respiratory 18 Rate Blood Pressure 89/40 L 102/55 L [Left Brachial artery] Blood Pressure 91/47 L [Left Radial artery] Blood Pressure [Right Brachial artery] O2 Saturation 100 Oxygen O2 Source Room air I&O (Last 24 Hrs): Intake and Output Totals x24h 06/09/23 06/10/23 06/11/23 23:59 23:59 23:59 Intake Total 2367.5 9600.548 1015.167 Output Total 675 475 800 Balance 1692.5 1421.666 404.167 General: Alert, Oriented x3, No acute distress HEENT: Atraumatic Neck: Supple Neuro: Alert, Non Focal Cardiovascular: Regular rate, Other (2/6 JARROD) Respiratory: Breath sounds nml Abdomen: Normal bowel sounds, Soft Extremities: Other (BL trace hand edema,no pedal edema) Skin: No rashes - Results Results: Laboratory Results WBC 15.3 x10^3/uL (4.8-10.8) H 06/11/23 05:43 RBC 2.78 10^6/uL (4.20-5.40) L 06/11/23 05:43 Hgb 8.9 g/dL (12.0-16.0) L 06/11/23 05:43 Hct 25.8 % (37.0-47.0) L 06/11/23 05:43 MCV 92.8 fL (81.0-99.0) 06/11/23 05:43 MCH 32.0 pg (27.0-31.0) H 06/11/23 05:43 MCHC 34.5 g/dL (32.0-36.0) 06/11/23 05:43 RDW 13.9 % (12.0-15.0) 06/11/23 05:43 Plt Count 353 10^3/uL (130-450) 06/11/23 05:43 MPV 9.7 fL (7.9-10.8) 06/11/23 05:43 Neut # (Auto) 11.8 10^3/uL (1.5-6.6) H 06/11/23 05:43 Lymph # (Auto) 2.0 10^3/uL (1.5-3.5) 06/11/23 05:43 [place] # (Auto) 1.1 10^3/uL (0.0-1.0) H 06/11/23 05:43 Eos # (Auto) 0.1 10^3/uL (0.0-0.7) 06/11/23 05:43 Baso # (Auto) 0.0 10^3/uL (0.0-0.1) 06/11/23 05:43 Absolute Nucleated RBC 0.00 x10^3/uL 06/11/23 05:43 Total Counted 100 06/05/23 15:02 Band Neuts % (Manual) 0 % (0-10) 06/05/23 15:02 Abnorm Lymph % (Manual) 0 % 06/05/23 15:02 Nucleated RBC % 0.0 /100WBC 06/11/23 05:43 Neutrophils # (Manual) 21.7 10^3/uL (1.5-6.6) H 06/05/23 15:02 Lymphocytes # (Manual) 1.2 10^3/uL (1.5-3.5) L 06/05/23 15:02 Monocytes # (Manual) 1.2 10^3/uL (0.0-1.0) H 06/05/23 15:02 Eosinophils # (Manual) 0.0 10^3/uL (0-0.7) 06/05/23 15:02 Basophils # (Manual) 0.0 10^3/uL (0-0.1) 06/05/23 15:02 Differential Comment MANUAL DIFFERENTIAL 06/05/23 15:02 WBC Morphology NORMAL APPEARANCE (NORMAL) 06/05/23 15:02 Platelet Estimate NORMAL (130-450,000) (NORMAL) 06/05/23 15:02 Platelet Morphology NORMAL APPEARANCE (NORMAL) 06/05/23 15:02 RBC Morph Micro Appear NORMAL APPEARANCE (NORMAL) 06/05/23 15:02 Sodium 133 mmol/L (135-145) L 06/11/23 05:43 Potassium 2.8 mmol/L (3.5-4.5) L 06/11/23 05:43 Chloride 98 mmol/L (101-111) L 06/11/23 05:43 Carbon Dioxide 32 mmol/L (21-32) 06/11/23 05:43 Anion Gap 3.0 (6-13) L 06/11/23 05:43 BUN 12 mg/dL (6-20) 06/11/23 05:43 Creatinine 0.6 mg/dL (0.6-1.3) 06/11/23 05:43 Estimated GFR (MDRD) 96 (>89) 06/11/23 05:43 Glucose 96 mg/dL (74-104) 06/11/23 05:43 POC Whole Bld Glucose 98 mg/dL (70 - 100) 06/11/23 11:25 Estimat Average Glucose 200 mg/dL (70-100) H 06/05/23 15:02 Hemoglobin A1c % 8.6 % (4.27-6.07) H 06/05/23 15:02 Lactic Acid 1.7 mmol/L (0.5-2.2) 06/05/23 15:02 Calcium 7.9 mg/dL (8.5-10.3) L 06/11/23 05:43 Magnesium 1.7 mg/dL (1.7-2.3) 06/07/23 03:59 Total Bilirubin 1.1 mg/dL (0.2-1.0) H 06/05/23 15:02 AST 18 IU/L (10-42) 06/05/23 15:02 ALT 14 IU/L (10-60) 06/05/23 15:02 Alkaline Phosphatase 92 IU/L (42-121) 06/05/23 15:02 Total Protein 6.7 g/dL (6.4-8.9) 06/05/23 15:02 Albumin 3.3 g/dL (3.2-5.5) 06/05/23 15:02 Globulin 3.4 g/dL (2.1-4.2) 06/05/23 15:02 Albumin/Globulin Ratio 1.0 (1.0-2.2) 06/05/23 15:02 Urine Color YELLOW 06/05/23 15:45 Urine Clarity CLOUDY (CLEAR) 06/05/23 15:45 Urine pH 5.0 PH (5.0-7.5) 06/05/23 15:45 Ur Specific [place] 1.025 (1.002-1.030) 06/05/23 15:45 Urine Protein 30 mg/dL (NEGATIVE) H 06/05/23 15:45 Urine Glucose (UA) >=1000 mg/dL (NEGATIVE) H 06/05/23 15:45 Urine Ketones 40 mg/dL (NEGATIVE) H 06/05/23 15:45 Urine Occult Blood MODERATE (NEGATIVE) H 06/05/23 15:45 Urine Nitrite NEGATIVE (NEGATIVE) 06/05/23 15:45 Urine Bilirubin NEGATIVE (NEGATIVE) 06/05/23 15:45 Urine Urobilinogen 1 (NORMAL) E.U./dL (NORMAL) 06/05/23 15:45 Ur Leukocyte Esterase TRACE (NEGATIVE) H 06/05/23 15:45 Urine RBC 6-10 /HPF (0-5) H 06/05/23 15:45 Urine WBC >25 /HPF (0-5) H 06/05/23 15:45 Ur Squamous Epith Cells FEW Squamous (<= Few) 06/05/23 15:45 Urine Bacteria Many /HPF (None Seen) H 06/05/23 15:45 Urine Culture Comments INDICATED 06/05/23 15:45 Urine Osmolality 593 mOsmol/kg (.) 06/07/23 14:36 Urine Sodium 137.8 mmol/L 06/07/23 14:36 ABX Reporting Has patient been on IV antibiotics over the past 48 hours?: Yes
[2023-06-11] MEDS: MULTIVITAMIN W/MINERALS TABLET PO SCH (16:47)
[2023-06-12] MEDS: SODIUM CHLORIDE FLUSH 0.9% 10 ML SYRINGE IVP SCH ×3 (00:23→17:30)
[2023-06-12 05:45] LABS: BASOPHILS % (AUTO) 0.2 %; EOSINOPHILS % (AUTO) 0.3 %; HGB - HEMOGLOBIN 8.5 g/dL (12.0-16.0); LYMPHOCYTES # (AUTO) 1.8 10^3/uL (1.5-3.5); LYMPHOCYTES % (AUTO) 18.2 %; MEAN CORPUSCULAR HEMOGLOBIN 31.3 pg (27.0-31.0); MEAN CORPUSCULAR VOLUME 91.9 fL (81.0-99.0); MEAN PLATELET VOLUME 9.4 fL (7.9-10.8); MONOCYTES # (AUTO) 1.1 10^3/uL (0.0-1.0); MONOCYTES % (AUTO) 11.4 %; NEUTROPHILS # (AUTO) 6.7 10^3/uL (1.5-6.6); NEUTROPHILS % (AUTO) 67.6 %; PLT - PLATELET COUNT 354 10^3/uL (130-450); RED BLOOD COUNT 2.72 10^6/uL (4.20-5.40); RED CELL DISTRIBUTION WIDTH 14.2 % (12.0-15.0); WHITE BLOOD COUNT 9.9 x10^3/uL (4.8-10.8)
[2023-06-12 05:54] LABS: CREATININE 0.6 mg/dL (0.6-1.3); POTASSIUM 3.1 mmol/L (3.5-4.5)
[2023-06-12] MEDS: PANTOPRAZOLE 40 MG VIAL IVP SCH (06:13)
[2023-06-12] MEDS: SUCRALFATE 1 GM/10 ML UDC PO SCH ×4 (06:13→21:27)
[2023-06-12] MEDS ORDERED: POTASSIUM CHLORIDE 20 MEQ TABLET PO ONE (07:54)
[2023-06-12] MEDS: ENOXAPARIN 40 MG/0.4 ML SYRINGE SUBQ SCH (08:02)
[2023-06-12] MEDS: SACCHAROMYCES BOULARDII 250 MG CAPSULE PO SCH ×2 (08:03→17:29)
[2023-06-12] MEDS: MULTIVITAMIN W/MINERALS TABLET PO SCH (08:03)
[2023-06-12] MEDS: INSULIN LISPRO 300 UNIT/3 ML PEN SUBQ SCH ×4 (08:03→21:26)
[2023-06-12] MEDS: cefTRIAXone 1 GM in SODIUM CHLORIDE 0.9% MINIBAG 100 ML IV SCH (08:04)
[2023-06-12] MEDS: ACETAMINOPHEN 325 MG TABLET PO PRN (10:45)
[2023-06-12] MEDS: SODIUM CHLORIDE 0.45% 1,000 ML IV SCH (11:39)
--- NOTE | 2023-06-12 16:46 | PROVIDER PROGRESS NOTE ---
Subjective - Prog Note Date Prog Note Date: 06/12/23 Prog Note Time: 16:44 - Subjective Subjective: There is a communication issue that she speaks Bulgarian. 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 Today we were finally able to get an middle school french teacher and this patient is paranoid, delusional. Not wanting to cooperate with physical therapy. She is also orthostatic and dropped her pressure to 89/40 with standing. Yesterday she was complaining of right hip pain, today she is complaining of more posterior superior iliac crest spine pain. She does not want to do PT because it hurts to weight-bear. In reviewing her vital signs, she has been afebrile. She has been on room air this entire stay and O2 sats are stable. Blood pressure has been in the 130s to 140s systolic. She is eating anywhere between bites and up to 50% of her food. Today she is increased her intake to 75% of her food. Current Medications - Current Medications Current Medications: Active Medications Acetaminophen (Acetaminophen 325 Mg Tablet) 650 mg PO Q4HR PRN PRN Reason: Pain 1 to 4, or Fever Last Admin: 06/12/23 10:45 Dose: 650 mg Enoxaparin Sodium (Enoxaparin 40 Mg/0.4 Ml Syringe) 40 mg SUBQ DAILY [facility] Last Admin: 06/12/23 08:02 Dose: 40 mg Sodium Chloride (Normal Saline 0.45%) 1,000 mls @ 50 mls/hr IV .Q20H [facility] Last Admin: 06/12/23 11:39 Dose: 50 mls/hr Ceftriaxone Sodium 1 gm/ (Sodium Chloride) 100 mls @ 200 mls/hr IV DAILY MELANY Last Admin: 06/12/23 08:04 Dose: 200 mls/hr Insulin Human Lispro (Insulin Lispro 300 Unit/3 Ml Pen) 2 - 10 unit SUBQ 0800,1200,1700,2100 [facility]; Protocol Last Admin: 06/12/23 11:39 Dose: 4 unit Multi-Ingredient Ointment (Zinc Oxide 20% Oint 30 Gm Tube) 1 applic TOP PRN PRN PRN Reason: Skin Care Multivitamins/Minerals (Multivitamin W/Minerals Tablet) 1 tab PO DAILYWM [facility] Last Admin: 06/12/23 08:03 Dose: 1 tab Ondansetron HCl (Ondansetron 4 Mg/2 Ml Vial) 4 mg IVP Q6HR PRN PRN Reason: Nausea / Vomiting Last Admin: 06/06/23 06:24 Dose: 4 mg Pantoprazole Sodium (Pantoprazole 40 Mg Vial) 40 mg IVP QDAC [facility] Last Admin: 06/12/23 06:13 Dose: 40 mg Prochlorperazine Edisylate (Prochlorperazine 10 Mg/2 Ml Vial) 10 mg IVP Q6HR PRN PRN Reason: Nausea / Vomiting Last Admin: 06/07/23 01:05 Dose: 10 mg Saccharomyces Boulardii (Saccharomyces Boulardii 250 Mg Capsule) 250 mg PO BIDWM [facility] Last Admin: 06/12/23 08:03 Dose: 250 mg Sodium Chloride (Sodium Chloride Flush 0.9% 10 Ml Syringe) 10 ml IVP PRN PRN PRN Reason: NEEDED PER PROVIDER ORDERS Last Admin: 06/11/23 07:10 Dose: 10 ml Sodium Chloride (Sodium Chloride Flush 0.9% 10 Ml Syringe) 10 ml IVP 0100,0900,1700 [facility] Last Admin: 06/12/23 09:07 Dose: Not Given Sucralfate (Sucralfate 1 Gm/10 Ml Udc) 1 gm PO 0700,1100,1600,2200 [facility] Last Admin: 06/12/23 16:43 Dose: 1 gm Aspirin Chewable [[place]yn Aspirin] 81 mg PO DAILY 12/13/22 Acetaminophen [Tylenol] 2 tab PO Q6H PRN 06/06/23 Atorvastatin Calcium 1 tab PO HS 06/06/23 Bisacodyl Supp [Dulcolax Supp] 1 supp LA PRN PRN 06/06/23 Enoxaparin [Lovenox] 40 mg SUBQ DAILY 06/06/23 Lisinopril/Hydrochlorothiazide [Zestoretic 20-25 mg Tablet] 1 tab PO DAILY 06/06 Mineral Oil [Mineral Oil Enema] 1 unit LA PRN PRN 06/06/23 Senna [Senokot] 2 tab PO PRN PRN 06/06/23 hydrALAZINE [Apresoline] 1 tab PO Q12H PRN 06/06/23 metFORMIN [Glucophage] 1 tab PO BID 06/06/23 polyethylene glycoL 3350 [Miralax] 1 packet PO DAILY PRN 06/06/23 Objective - Vital Signs/Intake & Output Reviewed Vital Signs: Yes Vital Signs: Vital Signs x48h Temp Pulse Resp BP Pulse Ox 06/12/23 16:36 36.4 C L 92 20 145/49 H 100 Intake & Output: Intake & Output 06/09/23 06/10/23 06/11/23 06/12/23 23:59 23:59 23:59 23:59 Intake Total 2367.5 4645.464 9267.500 1111.667 Output Total 554 560 5984 1275 Balance 1692.5 1421.666 442.500 -163.333 - Objective General Appearance: positive: Alert, Other (Short statured at 5 foot 1 inches tall, 51.5 kg. Agitated.) Eyes Bilateral: positive: PERRL, EOMI ENT: positive: No signs of dehydration Neck: positive: No JVD. negative: Stiff neck Respiratory: positive: No respiratory distress. negative: Wheezes, Rales, Rhonchi Cardiovascular: positive: Regular rate & rhythm, Tachycardia (occasionally) Abdomen: positive: Non-tender, No organomegaly, Nml bowel sounds, No distention Skin: positive: Warm, Dry, Other (hip incision closed and healed). negative: Skin rash Extremities: negative: Full ROM Neurologic/Psychiatric: positive: CN's nml (2-12), Motor nml, Disoriented to person, Disoriented to place, Disoriented to time - Lab Results Fish Bones: 06/12/23 05:27 06/12/23 05:27 Other Labs: Lab Results x24hrs 06/12/23 06/12/23 06/12/23 Range/Units 11:04 07:26 05:27 WBC 9.9 (4.8-10.8) x10^3/uL RBC 2.72 L (4.20-5.40) 10^6/uL Hgb 8.5 L (12.0-16.0) g/dL Hct 25.0 L (37.0-47.0) % MCV 91.9 (81.0-99.0) fL MCH 31.3 H (27.0-31.0) pg MCHC 34.0 (32.0-36.0) g/dL RDW 14.2 (12.0-15.0) % Plt Count 354 (130-450) 10^3/uL MPV 9.4 (7.9-10.8) fL Neut # (Auto) 6.7 H (1.5-6.6) 10^3/uL Lymph # (Auto) 1.8 (1.5-3.5) 10^3/uL [place] # (Auto) 1.1 H (0.0-1.0) 10^3/uL Eos # (Auto) 0.0 (0.0-0.7) 10^3/uL Baso # (Auto) 0.0 (0.0-0.1) 10^3/uL Absolute Nucleated RBC 0.00 x10^3/uL Nucleated RBC % 0.0 /100WBC Sodium (135-145) mmol/L Potassium (3.5-4.5) mmol/L Chloride (101-111) mmol/L Carbon Dioxide (21-32) mmol/L Anion Gap (6-13) BUN (6-20) mg/dL Creatinine (0.6-1.3) mg/dL Estimated GFR (MDRD) (>89) Glucose (74-104) mg/dL POC Whole Bld Glucose 185 H 101 H (70 - 100) mg/dL Calcium (8.5-10.3) mg/dL 06/12/23 06/11/23 Range/Units 05:27 20:26 WBC (4.8-10.8) x10^3/uL RBC (4.20-5.40) 10^6/uL Hgb (12.0-16.0) g/dL Hct (37.0-47.0) % MCV (81.0-99.0) fL MCH (27.0-31.0) pg MCHC (32.0-36.0) g/dL RDW (12.0-15.0) % Plt Count (130-450) 10^3/uL MPV (7.9-10.8) fL Neut # (Auto) (1.5-6.6) 10^3/uL Lymph # (Auto) (1.5-3.5) 10^3/uL [place] # (Auto) (0.0-1.0) 10^3/uL Eos # (Auto) (0.0-0.7) 10^3/uL Baso # (Auto) (0.0-0.1) 10^3/uL Absolute Nucleated RBC x10^3/uL Nucleated RBC % /100WBC Sodium 135 (135-145) mmol/L Potassium 3.1 L (3.5-4.5) mmol/L Chloride 103 (101-111) mmol/L Carbon Dioxide 30 (21-32) mmol/L Anion Gap 2.0 L (6-13) BUN 9 (6-20) mg/dL Creatinine 0.6 (0.6-1.3) mg/dL Estimated GFR (MDRD) 96 (>89) Glucose 103 (74-104) mg/dL POC Whole Bld Glucose 167 H (70 - 100) mg/dL Calcium 8.0 L (8.5-10.3) mg/dL Assessment/Plan - Problem List (1) Acute metabolic encephalopathy Impression: This is likely multifactorial: +From her UTI infection with bacteremia +from dehydration. +CT was without evidence of bowel obstruction. She had a left hip arthroplasty with scattered small sclerotic lesions. Pelvis was not well seen due to metallic artifact. Williamson was in place. She had mild gastric wall thickening, either infectious or inflammatory. Moderate rectal wall thickening also infectious/inflammatory. She had cholelithiasis with a distended gallbladder, and they recommended ultrasound if she had any right upper quadrant pain. She improved somewhat and was started to take more p.o. But in the last 24 hours physical therapy and nursing reports that she is sliding downhill again Today, she is even more agitated, more delusional. This could be due to just simple delirium in an elderly person with a language barrier. This to be superimposed over a cognitive deficit of aging. She is not on any hypnotics or opioids. Vital signs are stable even tho she has orthostasis. she has no fever, no severe hypertension, no hypoxia and white cell count is normal today. So I do not suspect infection. Plan: Repeat CT of head (2) Severe protein-calorie malnutrition Assessment/Plan: Patient has nutrition intake of less than 50% of recommended intake for 2 weeks or more. Weight loss approximately 33% in 6 months. Patient was in December 72 kg and currently 48 kg. (3) Urinary tract infection/E coli Bacteremia Qualifiers: Urinary tract infection type: acute cystitis E coli UTI sensitive to Rocephin. She required up to 14 days of antibiotic therapy. She is currently on day #8 of Rocephin. White cell count is normal today at 9.9. Yesterday she was 15.3. She has no fever. Plan: Discontinue IV antibiotics, and switch to Bactrim (4) Hypernatremia resolved since 06/07 Assessment/Plan: Stable at 147, likely 2/2 to decreased PO intake. Urine osmolality was 593, urine sodium was 137. (5) Chronic indwelling Williamson catheter Assessment/Plan: Pt arrived with Williamson - given bacteremia, Her Williamson was removed. A new Williamson was placed. Considering that she has a UTI and bacteremia, I will discontinue Williamson catheter. Reassess over the next 24 to 48 hours to see if she needs the Williamson. I will also write for as needed orders for straight cathing (6) Hypokalemia Assessment/Plan: Persistent, likely 2/2 to decreased PO intake. Monitor and replete appropriately. She has been repeatedly supplemented with potassium. Today she is 3.1. We will continue to supplement and recheck tomorrow. (7) DM type 2 (diabetes mellitus, type 2) Assessment/Plan: BS have been elevated, but pt with minimal PO intake. Today she has been 101, 185, 224. She is increased her meal consumption. She was only eating up to 50% and today she is eating 75%. Her medication at home is metformin. Considering she is in the hospital with acute fluid shifts, and erratic p.o. intake, I do not want to use metformin due to risk of lactic acidosis. Cont sliding scale correction for now, add lantus 10 units for am dose. (8) Status post hip surgery Assessment/Plan: She is seeing PT erratically depending on her agitation. The last 2 days have been difficult. To return to [facility] for rehab post hip fx repair (9) Gastritis Qualifiers: Gastritis bleeding: without bleeding Assessment/Plan: Radiographic finding Cont protonix,
--- NOTE | 2023-06-12 21:07 | CT Report ---
PROCEDURE: CT brain without contrast INDICATIONS: confusion, delirium TECHNIQUE: Noncontrast 4.5 mm thick angled axial sections acquired from the foramen magnum to the vertex. For r adiation dose reduction, the following was used: automated exposure control, adjustment of mA and/or kV according to patient size. COMPARISON: 06/05/2023 FINDINGS: Image quality: Excellent. CSF spaces: Basal cisterns are patent. No extra-axial fluid collections. Ventricles are normal in size and shape. Brain: No midline shift. No intracranial masses or hemorrhage. Hicks-white matter interface is norm al. Moderate atrophy and multifocal white matter chronic ischemic change noted. Atherosclerotic vasc ular calcification noted in the cavernous segments of both internal carotid arteries as well as the i ntradural vertebral arteries. 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 Sinuses: Visualized sinuses and mastoids are clear. IMPRESSION: Moderate atrophy, multifocal chronic ischemic change and small bilateral cortical infarcts, stable fr om prior Reviewed by: Cash Farrell MD on 06/12/2023 8:06 PM AKULISES Approved by: Cash Farrell MD on 06/12/2023 8:06 PM AKULISES Station ID: [id number]
[2023-06-12] MEDS: SULFAMETH/TRIMETH DS 800/160 MG TABLET PO SCH (21:27)
[2023-06-13 05:34] LABS: BASOPHILS % (AUTO) 0.3 %; EOSINOPHILS % (AUTO) 0.2 %; HCT - HEMATOCRIT 26.6 % (37.0-47.0); LYMPHOCYTES # (AUTO) 1.3 10^3/uL (1.5-3.5); LYMPHOCYTES % (AUTO) 11.6 %; MEAN CORPUSCULAR HEMOGLOBIN 32.1 pg (27.0-31.0); MEAN CORPUSCULAR HGB CONC 33.8 g/dL (32.0-36.0); MONOCYTES # (AUTO) 1.3 10^3/uL (0.0-1.0); MONOCYTES % (AUTO) 11.3 %; NEUTROPHILS # (AUTO) 8.8 10^3/uL (1.5-6.6); NEUTROPHILS % (AUTO) 75.3 %; PLT - PLATELET COUNT 358 10^3/uL (130-450); RED CELL DISTRIBUTION WIDTH 15.3 % (12.0-15.0); WHITE BLOOD COUNT 11.6 x10^3/uL (4.8-10.8)
[2023-06-13 05:45] LABS: CALCIUM 8.7 mg/dL (8.5-10.3); CREATININE 0.7 mg/dL (0.6-1.3); POTASSIUM 3.8 mmol/L (3.5-4.5)
[2023-06-13] MEDS: SODIUM CHLORIDE FLUSH 0.9% 10 ML SYRINGE IVP SCH ×3 (07:40→17:01)
[2023-06-13] MEDS: SUCRALFATE 1 GM/10 ML UDC PO SCH ×4 (07:40→21:01)
[2023-06-13] MEDS: PANTOPRAZOLE 40 MG VIAL IVP SCH (07:40)
[2023-06-13] MEDS: SODIUM CHLORIDE 0.45% 1,000 ML IV SCH (07:59)
[2023-06-13] MEDS: INSULIN LISPRO 300 UNIT/3 ML PEN SUBQ SCH ×4 (08:14→21:09)
[2023-06-13] MEDS: INSULIN GLARGINE-YFGN 300 UNIT/3 ML PEN SUBQ SCH (08:15)
[2023-06-13] MEDS: ENOXAPARIN 40 MG/0.4 ML SYRINGE SUBQ SCH (08:16)
[2023-06-13] MEDS: MULTIVITAMIN W/MINERALS TABLET PO SCH (08:16)
[2023-06-13] MEDS: SACCHAROMYCES BOULARDII 250 MG CAPSULE PO SCH ×2 (08:16→17:01)
[2023-06-13] MEDS: SULFAMETH/TRIMETH DS 800/160 MG TABLET PO SCH ×2 (08:17→21:01)
--- NOTE | 2023-06-13 12:59 | CT Report ---
PROCEDURE: CT pelvis without contrast INDICATIONS: fall w hx of hip fx and now w pelvic sacral pain TECHNIQUE: Noncontrast 3 mm axial sections acquired through the bony pelvis, with coronal and sagittal reformatt ing. For radiation dose reduction, the following was used: automated exposure control, adjustment of mA and/or kV according to patient size. COMPARISON: 06/05/[address] abdomen and pelvis FINDINGS: Image quality: Excellent. Bones: Degenerative changes noted in the lower lumbar spine. Left hip arthroplasty present associate d with left-sided skin damian. Generalized decreased osseous mineralization. Pelvic ring is intact w ithout evidence of fracture. Sacrum unremarkable. Incidental 7 mm left superior pubic rami enostosis or bone island Soft tissues: Calcified uterine fibroid noted. Dense atherosclerotic vascular calcification present. Degenerative changes noted in the lower lumbar spine. Williamson catheter in the bladder. Incidental note is made of rectal wall thickening, similar prior exam IMPRESSION: Osteopenia without evidence of fracture. Left hip arthroplasty in good position Incidental rectal wall thickening could reflect proctitis in the upper clinical setting. Possible mil d rectal prolapse Reviewed by: Cash Farrell MD on 06/13/2023 11:58 AM JANICE Approved by: Cash Farrell MD on 06/13/2023 11:58 AM JANICE Station ID: [id number]
--- NOTE | 2023-06-13 18:12 | PROVIDER PROGRESS NOTE ---
Progress Note June 12, 2023 6 PM No new events. There is been no change in diet, labs, vital signs. She continues to be slightly agitated but may be a little bit calmertoday. Yesterday the network infrastructure architect described hallucinations. She was asking for a bar of soap to eat. When she was working with physical therapy she suddenly decided she did not want to do this anymore and suddenly stopped with her walker and almost sat down on the floor. She is needing a mod to max assist x2. We had discontinued the Williamson catheter yesterday. Unfortunately she had 2 episodes of urinary retention requiring straight cath. This morning she retained up to 650. The morning nurse then did a straight cath. The patient gave the nurses hands and bent the finger back and dislocated one of the fingers. To keep in mind, this patient does have a language barrier. And she was getting a Williamson catheter put in her urethra probably without understanding what was going on. Since that episode, and with new nurses, the patient has been cooperative. Alert. Has asked to have a back molding fitter because it is itching. Has been cooperating with nursing in the afternoon with food, and getting up into a chair.She did tell the nurse that she had to go to the bathroom. And she was able to get up and urinate on her own. That was in the afternoon in comparison to the morning's urinary retention and straight cath. Active Medications Acetaminophen (Acetaminophen 325 Mg Tablet) 650 mg PO Q4HR PRN PRN Reason: Pain 1 to 4, or Fever Last Admin: 06/12/23 10:45 Dose: 650 mg Enoxaparin Sodium (Enoxaparin 40 Mg/0.4 Ml Syringe) 40 mg SUBQ DAILY [facility] Last Admin: 06/13/23 08:16 Dose: 40 mg Sodium Chloride (Normal Saline 0.45%) 1,000 mls @ 50 mls/hr IV .Q20H [facility] Last Admin: 06/13/23 07:59 Dose: 50 mls/hr Insulin Glargine-yfgn (Insulin Glargine-Yfgn 300 Unit/3 Ml Pen) 10 unit SUBQ DAILY [facility] Last Admin: 06/13/23 08:15 Dose: 10 unit Insulin Human Lispro (Insulin Lispro 300 Unit/3 Ml Pen) 2 - 10 unit SUBQ 0800,1200,1700,2100 M[facility]ANY; Protocol Last Admin: 06/13/23 16:57 Dose: Not Given Multi-Ingredient Ointment (Zinc Oxide 20% Oint 30 Gm Tube) 1 applic TOP PRN PRN PRN Reason: Skin Care Multivitamins/Minerals (Multivitamin W/Minerals Tablet) 1 tab PO DAILYWM [facility] Last Admin: 06/13/23 08:16 Dose: 1 tab Ondansetron HCl (Ondansetron 4 Mg/2 Ml Vial) 4 mg IVP Q6HR PRN PRN Reason: Nausea / Vomiting Last Admin: 06/06/23 06:24 Dose: 4 mg Pantoprazole Sodium (Pantoprazole 40 Mg Vial) 40 mg IVP QDAC [facility] Last Admin: 06/13/23 07:40 Dose: 40 mg Prochlorperazine Edisylate (Prochlorperazine 10 Mg/2 Ml Vial) 10 mg IVP Q6HR PRN PRN Reason: Nausea / Vomiting Last Admin: 06/07/23 01:05 Dose: 10 mg Saccharomyces Boulardii (Saccharomyces Boulardii 250 Mg Capsule) 250 mg PO BIDWM [facility] Last Admin: 06/13/23 17:01 Dose: 250 mg Sodium Chloride (Sodium Chloride Flush 0.9% 10 Ml Syringe) 10 ml IVP PRN PRN PRN Reason: NEEDED PER PROVIDER ORDERS Last Admin: 06/11/23 07:10 Dose: 10 ml Sodium Chloride (Sodium Chloride Flush 0.9% 10 Ml Syringe) 10 ml IVP 0100,0900,1700 [facility] Last Admin: 06/13/23 17:01 Dose: 10 ml Sucralfate (Sucralfate 1 Gm/10 Ml Udc) 1 gm PO 0700,1100,1600,2200 [facility] Last Admin: 06/13/23 17:01 Dose: 1 gm Trimethoprim/Sulfamethoxazole (Sulfameth/Trimeth Ds 800/160 Mg Tablet) 1 tab PO BID [facility] Last Admin: 06/13/23 08:17 Dose: 1 tab Aspirin Chewable [St Austyn Aspirin] 81 mg PO DAILY 12/13/22 Acetaminophen [Tylenol] 2 tab PO Q6H PRN 06/06/23 Atorvastatin Calcium 1 tab PO HS 06/06/23 Bisacodyl Supp [Dulcolax Supp] 1 supp AL PRN PRN 06/06/23 Enoxaparin [Lovenox] 40 mg SUBQ DAILY 06/06/23 Lisinopril/Hydrochlorothiazide [Zestoretic 20-25 mg Tablet] 1 tab PO DAILY 0 06/06/23 Mineral Oil [Mineral Oil Enema] 1 unit AL PRN PRN 06/06/23 Senna [Senokot] 2 tab PO PRN PRN 06/06/23 hydrALAZINE [Apresoline] 1 tab PO Q12H PRN 06/06/23 metFORMIN [Glucophage] 1 tab PO BID 06/06/23 polyethylene glycoL 3350 [Miralax] 1 packet PO DAILY PRN 06/06/23 Exam: Temperature 36.6. Heart rate is 86. Blood pressure 134/55. Respirations 16. 96% on room air. She is a tiny 5 foot 1 inch female at 52 kg. Smiling, nodding her head yes even though she has no idea what I am saying. No respiratory distress with clear lungs. Regular rate and rhythm. Abdomen is soft, nontender. Extremities have a healing incision on the hip. No redness, heat, drainage. Lab: BMP is normal except for an anion gap this low at 4.0. Glucose 203. Calcium 8.7. CBC is with a white cell count that is rebounded back up to 11.6. Hemoglobin 9.0. Platelet 358. Assessment/Plan - Problem List (1) Acute metabolic encephalopathy Impression: This is likely multifactorial: +From her UTI infection with bacteremia +from dehydration. +CT was without evidence of bowel obstruction. She had a left hip arthroplasty with scattered small sclerotic lesions. Pelvis was not well seen due to metallic artifact. Williamson was in place. She had mild gastric wall thickening, either infectious or inflammatory. Moderate rectal wall thickening also infectious/inflammatory. She had cholelithiasis with a distended gallbladder, and they recommended ultrasound if she had any right upper quadrant pain. She improved somewhat and was started to take more p.o. But in the last 24 hours physical therapy and nursing reports that she is sliding downhill again On June 12 she was more agitated, more delusional. I am thinking that this is simple delirium in an elderly person and on top of that there is a language barrier. She also has a cognitive deficit of aging. I do not see any medications that would contribute to this. I do not see any infections that are contributing to this now that her UTI is controlled. She is not on hypnotics or opioids. Vital signs are stable. No hypoxia. I repeated a CT of the head t o make sure she was not having another stroke yesterday. Today seems improved by the afternoon. Plan: Return to senior care facility tomorrow. (2) Severe protein-calorie malnutrition Assessment/Plan: Patient has nutrition intake of less than 50% of recommended intake for 2 weeks or more. Weight loss approximately 33% in 6 months. Patient was in December 72 kg and currently 48 kg. Yesterday she was eating anywhere from bites to 75% of her food. By dinner she ate all of dinner. Today she has eaten all of breakfast, 50% of lunch, 100% of dinner. Plan: Make sure to emphasize nutrition supplement at the fdc. (3) Urinary tract infection/E coli Bacteremia Qualifiers: Urinary tract infection type: acute cystitis E coli UTI sensitive to Rocephin. She required up to 14 days of antibiotic therapy. On June 12 she completed day #8 of Rocephin. White cell count was normal . Today white cell count is back up again but I do not think this has anything to do with a UTI and the Bactrim. Today is Bactrim day #1. She will need 6 more days at the senior care facility. (4) Hypernatremia resolved since 06/07 Assessment/Plan: Stable at 147, likely 2/2 to decreased PO intake. Urine osmolality was 593, urine sodium was 137. (5) Chronic indwelling Williamson catheter Assessment/Plan: Pt arrived with Williamson - given bacteremia, Her Williamson was removed. A new Williamson was placed. Considering that she has a UTI and bacteremia, I discontinued the Williamson June 12. She then had 2 subsequent episodes of urinary retention retrying a straight cath. This afternoon she urinated on her own. I am hoping she can return to the senior care facility without a Williamson. Thereby reducing her risk of getting another UTI. (6) Hypokalemia Assessment/Plan: Persistent, likely 2/2 to decreased PO intake. Monitor and replete appropriately. Today's potassium is 3.8. As such no supplementation today. (7) DM type 2 (diabetes mellitus, type 2) Assessment/Plan: BS have been elevated, but pt with minimal PO intake. 06/12 she had been 101, 185, 224. She was increasing her meal consumption. She was only eating up to 50% and 06/12 she was eating 75%-100%. Her medication at home is metformin. Considering she is in the hospital with acute fluid shifts, and erratic p.o. intake, I do not want to use metformin due to risk of lactic acidosis. I continued her sliding scale correction, but I added Lantus 10 units this morning. She has had good results with that. Glucose before breakfast was 184. Given Lantus. Lunchtime was 184, dinnertime she is 108. At the [facility] I will resume her metformin and glyburide. But if she will have decreased p.o. intake, I will warn the fdc to stop the metformin to avoid lactic acidosis. (8) Status post hip surgery Assessment/Plan: She is seeing PT erratically depending on her agitation. The last 3 days have been difficult. To return to [facility] for rehab post hip fx repair tomorrow (9) Gastritis Qualifiers: Gastritis bleeding: without bleeding Assessment/Plan: Radiographic finding Cont protonix,
[2023-06-14] MEDS: SODIUM CHLORIDE FLUSH 0.9% 10 ML SYRINGE IVP SCH ×3 (01:14→15:26)
[2023-06-14] MEDS: SODIUM CHLORIDE 0.45% 1,000 ML IV SCH (04:18)
[2023-06-14] MEDS: SUCRALFATE 1 GM/10 ML UDC PO SCH ×4 (06:13→20:55)
[2023-06-14] MEDS: PANTOPRAZOLE 40 MG VIAL IVP SCH (06:13)
[2023-06-14] MEDS: SODIUM CHLORIDE FLUSH 0.9% 10 ML SYRINGE IVP PRN (06:14)
[2023-06-14 06:32] LABS: BASOPHILS % (AUTO) 0.2 %; EOSINOPHILS % (AUTO) 0.5 %; HCT - HEMATOCRIT 23.3 % (37.0-47.0); HGB - HEMOGLOBIN 7.8 g/dL (12.0-16.0); LYMPHOCYTES # (AUTO) 1.4 10^3/uL (1.5-3.5); MEAN CORPUSCULAR HEMOGLOBIN 31.2 pg (27.0-31.0); MEAN CORPUSCULAR HGB CONC 33.5 g/dL (32.0-36.0); MEAN CORPUSCULAR VOLUME 93.2 fL (81.0-99.0); MEAN PLATELET VOLUME 8.7 fL (7.9-10.8); NEUTROPHILS % (AUTO) 70.1 %; PLT - PLATELET COUNT 302 10^3/uL (130-450); RED CELL DISTRIBUTION WIDTH 15.3 % (12.0-15.0); WHITE BLOOD COUNT 8.5 x10^3/uL (4.8-10.8)
[2023-06-14 06:48] LABS: CALCIUM 8.2 mg/dL (8.5-10.3); CREATININE 0.7 mg/dL (0.6-1.3); POTASSIUM 3.3 mmol/L (3.5-4.5)
[2023-06-14] MEDS: SULFAMETH/TRIMETH DS 800/160 MG TABLET PO SCH ×2 (08:57→20:55)
[2023-06-14] MEDS: MULTIVITAMIN W/MINERALS TABLET PO SCH (08:57)
[2023-06-14] MEDS: SACCHAROMYCES BOULARDII 250 MG CAPSULE PO SCH ×2 (08:57→16:30)
[2023-06-14] MEDS: ENOXAPARIN 40 MG/0.4 ML SYRINGE SUBQ SCH (08:57)
[2023-06-14] MEDS: INSULIN LISPRO 300 UNIT/3 ML PEN SUBQ SCH ×4 (08:57→20:55)
[2023-06-14] MEDS: INSULIN GLARGINE-YFGN 300 UNIT/3 ML PEN SUBQ SCH (08:58)
--- NOTE | 2023-06-14 15:12 | PROVIDER PROGRESS NOTE ---
Progress Note June 14, 2023 3:09 PM No new events. I asked discharge planning to have her transferred to her prison today. However the prison and the insurance company are negotiating a single case agreement and the patient will remain here until that agreement is in writing. She was able to urinate freely last night twice. This morning no urination but she had less than 200 cc in her bladder. She ate breakfast if the [employer] fed her. Her hallucinations and delusions seems to have resolved. Still disoriented and that she knows she is in [place] but does not know exactly what this facility is. Active Medications Acetaminophen (Acetaminophen 325 Mg Tablet) 650 mg PO Q4HR PRN PRN Reason: Pain 1 to 4, or Fever Last Admin: 06/12/23 10:45 Dose: 650 mg Enoxaparin Sodium (Enoxaparin 40 Mg/0.4 Ml Syringe) 40 mg SUBQ DAILY [facility] Last Admin: 06/14/23 08:57 Dose: 40 mg Sodium Chloride (Normal Saline 0.45%) 1,000 mls @ 50 mls/hr IV .Q20H [facility] Last Admin: 06/14/23 04:18 Dose: 50 mls/hr Insulin Glargine-yfgn (Insulin Glargine-Yfgn 300 Unit/3 Ml Pen) 10 unit SUBQ DAILY [facility] Last Admin: 06/14/23 08:58 Dose: 10 unit Insulin Human Lispro (Insulin Lispro 300 Unit/3 Ml Pen) 2 - 10 unit SUBQ 0800,1200,1700,2100 [facility]; Protocol Last Admin: 06/14/23 12:02 Dose: Not Given Multi-Ingredient Ointment (Zinc Oxide 20% Oint 30 Gm Tube) 1 applic TOP PRN PRN PRN Reason: Skin Care Multivitamins/Minerals (Multivitamin W/Minerals Tablet) 1 tab PO DAILYWM [facility] Last Admin: 06/14/23 08:57 Dose: 1 tab Ondansetron HCl (Ondansetron 4 Mg/2 Ml Vial) 4 mg IVP Q6HR PRN PRN Reason: Nausea / Vomiting Last Admin: 06/06/23 06:24 Dose: 4 mg Pantoprazole Sodium (Pantoprazole 40 Mg Vial) 40 mg IVP QDAC [facility] Last Admin: 06/14/23 06:13 Dose: 40 mg Prochlorperazine Edisylate (Prochlorperazine 10 Mg/2 Ml Vial) 10 mg IVP Q6HR PRN PRN Reason: Nausea / Vomiting Last Admin: 06/07/23 01:05 Dose: 10 mg Saccharomyces Boulardii (Saccharomyces Boulardii 250 Mg Capsule) 250 mg PO BIDWM [facility] Last Admin: 06/14/23 08:57 Dose: 250 mg Sodium Chloride (Sodium Chloride Flush 0.9% 10 Ml Syringe) 10 ml IVP PRN PRN PRN Reason: NEEDED PER PROVIDER ORDERS Last Admin: 06/14/23 06:14 Dose: 10 ml Sodium Chloride (Sodium Chloride Flush 0.9% 10 Ml Syringe) 10 ml IVP 0100,0900,1700 [facility] Last Admin: 06/14/23 08:58 Dose: 10 ml Sucralfate (Sucralfate 1 Gm/10 Ml Udc) 1 gm PO 0700,1100,1600,2200 [facility] Last Admin: 06/14/23 12:02 Dose: 1 gm Trimethoprim/Sulfamethoxazole (Sulfameth/Trimeth Ds 800/160 Mg Tablet) 1 tab PO BID [facility] Last Admin: 06/14/23 08:57 Dose: 1 tab Aspirin Chewable [St Austyn Aspirin] 81 mg PO DAILY 12/13/22 Acetaminophen [Tylenol] 2 tab PO Q6H PRN 06/06/23 Atorvastatin Calcium 1 tab PO HS 06/06/23 Bisacodyl Supp [Dulcolax Supp] [address] PRN PRN 06/06/23 Enoxaparin [Lovenox] 40 mg SUBQ DAILY 06/06/23 Lisinopril/Hydrochlorothiazide [Zestoretic 20-25 mg Tablet] 1 tab PO DAILY 06/06/23 Mineral Oil [Mineral Oil Enema] [address] PRN PRN 06/06/23 Senna [Senokot] 2 tab PO PRN PRN 06/06/23 hydrALAZINE [Apresoline] 1 tab PO Q12H PRN 06/06/23 metFORMIN [Glucophage] 1 tab PO BID 06/06/23 polyethylene glycoL 3350 [Miralax] 1 packet PO DAILY PRN 06/06/23 Exam: Temperature 36.3. Heart rate 85. Blood pressure 136/48. Respirations 17. 100% on room air. 5 foot 1 age female, 52 kg Supple neck, no JVD Lungs are clear to auscultation and percussion and she has no increased respiratory effort with talking to me or sitting up in bed Regular rate and rhythm Abdomen is soft, nontender, normal bowel sounds Extremities have no edema Previous hip wound for hip replacement or repair is closed, healed. No drainage or oozing. Lab: Sodium 138, potassium 3.3, BUN 5, creatinine 0.7. Glucose is 98, 136 (she is now on Lantus day #2) White cell count is 8.5. Hemoglobin is 7.8. She was admitted with 1.8. She has not required any blood transfusions. There are no signs and symptoms of bleeding. Platelet is 302. Assessment/Plan - Problem List (1) Acute metabolic encephalopathy resolving Impression: This is likely multifactorial: +From her UTI infection with bacteremia +from dehydration. +CT was without evidence of bowel obstruction. She had a left hip arthroplasty with scattered small sclerotic lesions. Pelvis was not well seen due to metallic artifact. Williamson was in place. She had mild gastric wall thickening, either infectious or inflammatory. Moderate rectal wall thickening also infectious/inflammatory. She had cholelithiasis with a distended gallbladder, and they recommended ultrasound if she had any right upper quadrant pain. She improved somewhat and was started to take more p.o. But in the last 24 hours physical therapy and nursing reports that she is sliding downhill again On June 12 she was more agitated, more delusional. I am thinking that this is simple delirium in an elderly person and on top of that there is a language barrier. She also has a cognitive deficit of aging. I do not see any medications that would contribute to this. I do not see any infections that are contributing to this now that her UTI is controlled. She is not on hypnotics or opioids. Vital signs are stable. No hypoxia. I repeated a CT of the head to make sure she was not having another stroke. Repeat CT unchanged. On June 13 she was still hallucinating but [place] and more cooperative. Today appears to have less hallucinations. I do not know what her baseline status is. There is no family member to guide me. But she is smiling, alert, cooperative with nursing today. Eating her food. Plan: I have asked that she be discharged to her [facility] facility today but, again, they are awaiting a single case agreement between prison and insurance company. care home will notify us when she can be excepted (2) Severe protein-calorie malnutrition Assessment/Plan: Patient has nutrition intake of less than 50% of recommended intake for 2 weeks or more. Weight loss approximately 33% in 6 months. Patient was in December 72 kg and currently 48 kg. Yesterday she was eating anywhere from bites to 75% of her food. By dinner she ate all of dinner. Today she has eaten all of breakfa st, 50% of lunch, 100% of dinner. Plan: Make sure to emphasize nutrition supplement at the prison. In the last 24 to 48 hours her p.o. intake has improved as her delirium has resolved. (3) Urinary tract infection/E coli Bacteremia Qualifiers: Urinary tract infection type: acute cystitis E coli UTI sensitive to Rocephin. She required up to 14 days of antibiotic therapy. On June 12 she completed day #8 of Rocephin. White cell count was normal . 06/13 white cell count was back up again but I do not think this has anything to do with a UTI and the Bactrim. Today WBC back to normal. Bactrim day #2. She will need 5 more days at the fci facility. (4) Hypernatremia resolved since 06/07 Assessment/Plan: Stable at 138 today, likely 2/2 to decreased PO intake. Urine osmolality was 593, urine sodium was 137. (5) Chronic indwelling Williamson catheter Assessment/Plan: Pt arrived with Williamson - given bacteremia, Her Williamson was removed. A new Williamson was placed. Considering that she has a UTI and bacteremia, I discontinued the Williamson June 12. She then had 2 subsequent episodes of urinary retention retrying a straight cath. By afternoon of 06/13, she urinated on her own. I am hoping she can return to the [facility] facility without a Williamson. Thereby reducing her risk of getting another UTI. (6) Hypokalemia Assessment/Plan: Persistent, likely 2/2 to decreased PO intake. Monitor and replete appropriately. Today's potassium is 3.3. Supplemented with 20 meq once and to start daily dose tomorrow. (7) DM type 2 (diabetes mellitus, type 2) Assessment/Plan: BS have been elevated, but pt with minimal PO intake. 06/12 she had been 101, 185, 224. She was increasing her meal consumption. She was only eating up to 50% and 06/12 she was eating 75%-100%. Her medication at home is metformin. Considering she is in the hospital with acute fluid shifts, and erratic p.o. intake, I do not want to use metformin due to risk of lactic acidosis. I continued her sliding scale correction, but I added Lantus 10 units on the morning of 06/13. She has had good results with that. Glucose before breakfast was 184. Given Lantus. Lunchtime was 184, dinnertime she is 108. Today glucose remains well controlled with the lantus. NO change in meds for this problem At the prison I will resume her metformin and glyburide. But if she will have decreased p.o. intake, I will warn the prison to stop the metformin to avoid lactic acidosis. (8) Status post hip surgery Assessment/Plan: She is seeing PT erratically depending on her agitation. Once agitation improved she has been able to see PT To return to [facility] for rehab post hip fx repair once single case agreement reached. (9) Gastritis Qualifiers: Gastritis bleeding: without bleeding Assessment/Plan: Radiographic finding Cont protonix,
[2023-06-14] MEDS ORDERED: POTASSIUM CHLORIDE 20 MEQ TABLET PO ONE (15:16)
[2023-06-15] MEDS: SODIUM CHLORIDE 0.45% 1,000 ML IV SCH (00:17)
[2023-06-15] MEDS: SODIUM CHLORIDE FLUSH 0.9% 10 ML SYRINGE IVP SCH ×2 (00:17→11:47)
[2023-06-15] MEDS: PANTOPRAZOLE 40 MG VIAL IVP SCH (06:01)
[2023-06-15] MEDS: SUCRALFATE 1 GM/10 ML UDC PO SCH ×2 (06:17→11:49)
[2023-06-15] MEDS: INSULIN LISPRO 300 UNIT/3 ML PEN SUBQ SCH ×2 (07:44→11:50)
[2023-06-15 07:50] VITALS: BP 127/50
[2023-06-15] MEDS ORDERED: POTASSIUM CHLORIDE 20 MEQ TABLET PO SCH (08:00)
[2023-06-15] MEDS: INSULIN GLARGINE-YFGN 300 UNIT/3 ML PEN SUBQ SCH (08:03)
[2023-06-15] MEDS: SACCHAROMYCES BOULARDII 250 MG CAPSULE PO SCH (08:46)
[2023-06-15] MEDS: ENOXAPARIN 40 MG/0.4 ML SYRINGE SUBQ SCH (08:46)
[2023-06-15] MEDS: MULTIVITAMIN W/MINERALS TABLET PO SCH (08:46)
[2023-06-15] MEDS: SULFAMETH/TRIMETH DS 800/160 MG TABLET PO SCH (08:47)
--- NOTE | 2023-06-15 09:57 | Discharge Plan ---
"Discharge Plan for SNF / [facility] - Discharge Plan And Transition Orders Problem Reviewed?: Yes Disposition: 03 SNF DC/Xfer Condition: Fair Allergies and Adverse Reactions: Allergies Allergy/AdvReac Type Severity Reaction Status Date / Time No Known Drug Allergies Allergy Verified 12/13/22 21:09 Health Concerns: Elderly female who does not speak Guatemalan who had fallen and broken her hip and was in a care home facility. She was brought over from the care home facility because of 4 days of poor p.o. intake, and 48 hours of obtundation. She was found to have a urinary tract infection, profound dehydration, a white cell count of 24,000. A sodium of 148. She has been hydrated, is taking p.o. well, and had a hospital complication of delirium. The latter has resolved. Sodium is 138. The main barrier to her care has been language. Sometimes has been difficult to get an diplomatic courier. She does have some urinary retention but Williamson has been removed. She has been able to urinate on her own for the last 2 days. Plan of Treatment: She is to finish rehab to allow her to gain functional mobility. She needs to be able to at least transfer, feed herself, and she will be returned to her previous home life. She will complete physical therapy at [facility] until that is achieved. Because of the language barrier, and her fear when she does not understand what is happening to her, please emphasize an diplomatic courier be used. Please make sure that someone stands at the bedside for her to eat and drink enough food. Care Goals: To eventually resume her previous home life Assessment: Currently cheerful, alert. Unable to understand me and I not understand her. But she is communicating well with the nurses who can speak to her. - SNF / [facility] Transition Orders Admit to (Facility): [facility] Under the care of (Name): Tavia Umanzor Discharge Diagnosis: 1. Acute metabolic encephalopathy 2. E. coli UTI 3. E. coli bacteremia 4. Hypernatremia 5. Dehydration 6. Chronic indwelling Williamson catheter on admission, now removed 7. Hypokalemia 8. Type 2 diabetes mellitus, controlled, without complication, not on long-term use of insulin 9. Status post hip fracture repair 10. Gastritis Medicare Certification Statement: I certify that [facility] care home care is medically necessary on a continuing basis for any of the conditions for which she/he is receiving care during hospitalization. Notify PCP of admission and forward orders to primary provider for signature. Weight on admission and: Weekly Other Notification Orders: Call PCP immediately if patient develops dyspnea, chest pain/tightness or edema. House Bowel Program: Yes Additional Bowel Program Orders: If no BM after 2 days, nurse may give M.O.M. 30ml PO PRN and/or ducolax Supp 1 GA and/or MYNOR 250mg P.O., and/or senna 1-2 tabs PO. On day 3 nurse may give repeat above order until residents constipation is resolved. Annual Influenza Vaccine (between Jul 13 and February 09): Yes Two-step PPD per [facility] [id number] or approved exception documents: Yes Treatments & Other Orders: Left hip suture/wound area clean, closed. Gorin removed at discharge from hospital. Keep area clean and dry. No need to cover unless drainage starts. Notify orthopedic surgeon from [facility] if there is any redness, heat, or drainage Lab Tests or X-ray Orders: [facility] on June 18 Medication Orders: PLEASE REFER TO THE DISCHARGE MEDICATION LIST. Insulin Orders?: No - Diet Type: No added sugar Texture: Regular Liquids: Thin May have monthly special meal: Yes - Therapies | Activity Therapy: Evaluation | Treat if indicated: PT, OT Rehabilitation Potential: Return to independent living Activity: Activity as Tolerated Weight Bearing: Full Weight Assistance Devices: Walker Follow Up: Tavia umanzor"
--- NOTE | 2023-06-15 10:31 | DISCHARGE SUMMARY ---
Discharge Summary Admit Date: 06/05/23 Discharge Date: 06/15/23 Discharging Provider: Lottie Keita MD Primary Care Provider: Tavia Sawyer Code Status: Do Not Attempt Resuscitation Condition at Discharge: Fair Discharge Disposition: SNF DC/Xfer - DIAGNOSES Discharge Diagnoses with Status of Each Condition: 1. Acute metabolic encephalopathy 2. E. coli UTI 3. E. coli bacteremia 4. Hypernatremia 5. Dehydration 6. Severe protein calorie malnutrition 7. Chronic indwelling Gilmore catheter on admission, now removed 8. Hypokalemia 9. Type 2 diabetes mellitus, controlled, without complication, not on long-term use of insulin 10. Status post hip fracture repair 11. Gastritis - HPI History of Present Illness: This is a 77-year-old female with history of dementia (worse over the last 4 mos, per the daughter), and Hx of diabetes, who fell and broke her hip several weeks ago, and had it repaired at [facility], where she was hospitalized from May 26 to May 31 and was discharged from [facility] with a Gilmore catheter due to urinary retntion (per the daughter), and sent to [facility] for rehab. Over the last 1-2 days she has become more listless, has had 4 days of a poor appetite, has had no fever or cough, has mostly been sleeping. Because of being more obtunded, the staff of [facility] sent her in to our ER. She had no specific complaints and was minimally comm unicative in the ER. Patient speaks no Moroccan but daughter was at bedside and confirmed to our ED provider that this is not her mother's usual mental status. Blood pressure was stable and heart rate was 99. Work-up showed an elevated WBC of 24, normal lactic acid level, high sodium of 148, low potassium of 2.8, elevated BUN/creatinine of 36/1.0. Her glucose was 369. She had an abnormal urinalysis with many WBC and many bacteria seen. A head CT was done that showed no trauma or acute findings. A CT abdomen was done that showed gallstones present but otherwise unremarkable. The patient had blood cultures drawn, IV Lactated Ringer's started, and received a dose of Zosyn IV antibiotic. The ED provider then spoke to me about admitting her to the Hospitalist service. She will be admitted for a UTI causing altered mental status, hypernatremia from dehydration, hypokalemia, prerenal azotemia, with new Gilmore in place after hip surgery. I spoke to the daughter about the patient's CODE status and she said the patient is a Full Code. - Past Medical History Cardiovascular: reports: Hypertension Neuro: reports: Dementia Endocrine/Autoimmune: reports: Type 2 diabetes : reports: Other (Has a Gilmore for the past few weeks placed for urinary reten tion.) MRSA Hx?: No Other Past Medical History: Hx. of urogenital implants and retention, with gilmore. - Past Surgical History Ortho: reports: Hip replacement - CONSULTS | PROCEDURES Procedures: Chest x-ray was without acute cardiopulmonary abnormality Head CT had no acute intracranial process. Moderate atrophy and chronic microvascular ischemic changes. Abdomen/pelvic CT had left hip arthroplasty. Scattered small sclerotic lesions likely bony islands. Cholelithiasis and distention. She did not have right upper quadrant pain. No splenomegaly. No small bowel obstruction. Mild to moderate rectal wall thickening but no pathologic ascites or abscess. Nondila mic appendix. Gastric wall thickening. Compatible with inflammatory gastritis. Repeat head CT done because of delirium and again without any changes. This CT noted that she had small bilateral cortical infarcts that were stable. Repeat pelvis CT was done because of hip pain and she had osteopenia without fracture. Left hip arthroplasty in good position. Incidental rectal wall thickening reflecting proctitis and mild rectal prolapse. Blood culture was positive for E. coli Urine culture positive for E. coli - HOSPITAL COURSE Hospital Course: Elderly female who does not speak Moroccan who had fallen and broken her hip and was in a long-term facility. She was brought over from the long-term facility because of 4 days of poor p.o. intake, and 48 hours of obtundation. She was found to have a urinary tract infection, profound dehydration, a white cell count of 24,000. A sodium of 148. She has been hydrated, is taking p.o. well, and had a hospital complication of delirium. The latter has resolved. Sodium is 138. The main barrier to her care has been language. Sometimes has been difficult to get an reporting lead. She does have some urinary retention but Gilmore has been removed. She has been able to urinate on her own for the last 2 days.E. coli bacteremia was noted with this UTI. Previous hospital opted to start her on antibiotics with the intention of giving her 2 weeks total antibiotics. She needs 4 more days of oral antibiotics to complete a full 2 weeks. That will be with Bactrim. We did think about using a quinolone but it had to many drug interactions with her current meds. Bactrim does interact with her potassium. During her stay she she had hypokalemia and required multiple days of supplementation. I would recommend a CBC and a CMP in the next few days.Transferred to the long-term facility was delayed by few days. The insurance company in the fpc had to reach a single case agreement in order for her to be excepted back to the long-term facility. She is to finish rehab to allow her to gain functional mobility. She needs to be able to at least transfer, feed herself, and she will be returned to her previous home life.Her hip wound should be kept clean and dry. Does not need any special dressings. She can take a shower, just do not soak the wound in a bath. She will complete physical therapy at [facility] until that is achieved. Because of the language barrier, and her fear when she does not understand what is happening to her, please emphasize an reporting lead be used. Please make sure that someone stands at the bedside for her to eat and drink enough food. Family has been told they can bring in her "waldo food" for her to eat since she doesn't like institutional food. Glucose was controlled with Lantus and SS insulin. Metformin resumed at discharge. Fer were removed on the day of discharge. Her left hip wound is closed, healed, no drainage. No redness. She should be follow-up by her orthopedic surgeon at the appropriate time. The surgeon was Dr. Kenna Gaitan at [facility]. She is discharged in stable condition. Currently cheerful, alert. Unable to understand me and I not understand her. But she is communicating well with the nurses who can speak to her. Temperature is 36.6, heart rate 78, blood pressure 127/50. Respirations 16. 97% on room air. She is 5 foot 1 inches tall, weighs 52.5 kg. Neck is supple. Lungs are clear. Regular rate and rhythm. Abdomen is soft, nontender. Left ankle has a little bit of edema in comparison to right ankle. Homans negative. Again the left wound is closed, clean. Fer taken out today. She is able to sit up, stand, and does work haltingly with PT. Greater than 30 minutes was spent coordinating discharge This document was made in part using voice recognition software. While efforts are made to proofread this document, sound alike and grammatical errors may occur. - ALLERGIES Allergies/Adverse Reactions: Allergies Allergy/AdvReac Type Severity Reaction Status Date / Time No Known Drug Allergies Allergy Verified 12/13/22 21:09 - MEDICATIONS Home Medications: Ambulatory Orders Medication Instructions Recorded Confirmed Aspirin Chewable [St Austyn 81 mg PO DAILY 12/13/22 06/06/23 Aspirin] Acetaminophen [Tylenol] 2 tab PO Q6H PRN 06/06/23 06/06/23 Atorvastatin Calcium 1 tab PO HS 06/06/23 06/06/23 Bisacodyl Supp [Dulcolax Supp] 1 supp AK PRN PRN 06/06/23 06/06/23 Enoxaparin [Lovenox] 40 mg SUBQ DAILY 06/06/23 06/06/23 Lisinopril/Hydrochlorothiazide 1 tab PO DAILY 06/06/23 06/06/23 [Zestoretic 20-25 mg Tablet] Mineral Oil [Mineral Oil Enema] 1 unit AK PRN PRN 06/06/23 06/06/23 Senna [Senokot] 2 tab PO PRN PRN 06/06/23 06/06/23 hydrALAZINE [Apresoline] 1 tab PO Q12H PRN 06/06/23 06/06/23 metFORMIN [Glucophage] 1 tab PO BID 06/06/23 06/06/23 polyethylene glycoL 3350 [Miralax] 1 packet PO DAILY PRN 06/06/23 06/06/23 Multivitamin W/Minerals [Theragran 1 tab PO DAILYWM tab 06/15/23 M] Potassium Chloride [K-Dur] 10 meq PO DAILYWM tab 06/15/23 Saccharomyces Boulardii [Florastor] 250 mg PO BIDWM cap 06/15/23 Sulfamethox/Trimeth 800/160 1 tab PO BID tab 06/15/23 [Bactrim Ds] Zinc Oxide 20% Oint [Zinc Oxide] 1 applic TOP PRN PRN each 06/15/23 - LABS Result Diagrams: 06/14/23 06:22 06/14/23 06:22
== END 2023-06-15 12:30 | DRG 70 ==
LOC: EDUNIT# → ED 14:44 → MS2 17:33
PROVIDERS: ADMIT Internal Medicine; ATTEND Specialist
DX: G93.41 Metabolic encephalopathy (principal); E43 Unspecified severe protein-calorie malnutrition; E87.0 Hyperosmolality and hypernatremia; R78.81 Bacteremia; Z68.1 Body mass index [BMI] 19.9 or less, adult; N30.00 Acute cystitis without hematuria; B96.20 Unspecified Escherichia coli [E. coli] as the cause of diseases classified elsewhere; E86.0 Dehydration; E87.6 Hypokalemia; E11.9 Type 2 diabetes mellitus without complications; K29.70 Gastritis, unspecified, without bleeding; F03.90 Unspecified dementia, unspecified severity, without behavioral disturbance, psychotic disturbance, mood disturbance, and anxiety; R33.9 Retention of urine, unspecified; R79.89 Other specified abnormal findings of blood chemistry; Z79.4 Long term (current) use of insulin; Z79.82 Long term (current) use of aspirin; Z79.84 Long term (current) use of oral hypoglycemic drugs; Z79.899 Other long term (current) drug therapy; Z96.642 Presence of left artificial hip joint
CPT/HCPCS: 36415; 70450; 71045; 72192; 74177; 80048; 80053; 81001; 83036; 83605; 83735; 83935; 84132; 84300; 85025; 85027; 87040; 87086; 87150; 87181; 93005; 96361; 96365; 97162; 97166; 97530; 97535; 99285; A9270; J1650; J1815; J7040; J7120; Q9967

== ENCOUNTER 2023-06-18 14:09 | Outpatient (CLI) | payer MEDICAID ==
[2023-06-18 14:32] LABS: CALCIUM 8.7 mg/dL (8.5-10.3); POTASSIUM 4.7 mmol/L (3.5-4.5)
== END 2023-06-18 14:10 | disposition home or self-care (01) ==
LOC: LAB.R 14:09
PROVIDERS: ATTEND Registered Nurse
DX: I10 Essential (primary) hypertension (principal); E87.0 Hyperosmolality and hypernatremia; E87.6 Hypokalemia
CPT/HCPCS: 80048

== ENCOUNTER 2023-07-10 11:13 | Outpatient (CLI) | payer MEDICAID ==
[2023-07-10 11:24] LABS: BASOPHILS # (AUTO) 0.1 10^3/uL (0.0-0.1); EOSINOPHILS % (AUTO) 0.4 %; HCT - HEMATOCRIT 30.9 % (37.0-47.0); HGB - HEMOGLOBIN 10.1 g/dL (12.0-16.0); LYMPHOCYTES # (AUTO) 2.8 10^3/uL (1.5-3.5); LYMPHOCYTES % (AUTO) 35.8 %; MEAN CORPUSCULAR HEMOGLOBIN 32.3 pg (27.0-31.0); MEAN CORPUSCULAR HGB CONC 32.7 g/dL (32.0-36.0); MEAN CORPUSCULAR VOLUME 98.7 fL (81.0-99.0); MEAN PLATELET VOLUME 9.4 fL (7.9-10.8); MONOCYTES # (AUTO) 0.6 10^3/uL (0.0-1.0); MONOCYTES % (AUTO) 7.6 %; NEUTROPHILS # (AUTO) 4.3 10^3/uL (1.5-6.6); NEUTROPHILS % (AUTO) 54.8 %; PLT - PLATELET COUNT 273 10^3/uL (130-450); RED BLOOD COUNT 3.13 10^6/uL (4.20-5.40); RED CELL DISTRIBUTION WIDTH 15.2 % (12.0-15.0); WHITE BLOOD COUNT 7.9 x10^3/uL (4.8-10.8)
[2023-07-10 11:44] LABS: ALBUMIN 3.2 g/dL (3.2-5.5); ALBUMIN/GLOBULIN RATIO 1.1 (1.0-2.2); BILIRUBIN,TOTAL 0.5 mg/dL (0.2-1.0); CALCIUM 9.2 mg/dL (8.5-10.3); CREATININE 0.8 mg/dL (0.6-1.3); POTASSIUM 4.3 mmol/L (3.5-4.5); TOTAL PROTEIN 6.1 g/dL (6.4-8.9)
== END 2023-07-10 11:14 | disposition home or self-care (01) ==
LOC: LAB.R 11:13
PROVIDERS: ATTEND Registered Nurse
DX: I10 Essential (primary) hypertension (principal); N39.0 Urinary tract infection, site not specified; M62.59 Muscle wasting and atrophy, not elsewhere classified, multiple sites
CPT/HCPCS: 80053; 85025

== ENCOUNTER 2023-07-11 09:53 | Outpatient (CLI) | payer MEDICAID ==
--- NOTE | 2023-07-11 12:23 | XRAY Report ---
PROCEDURE: Chest 2 View X-Ray INDICATIONS: SKIN REATION R76.11 TECHNIQUE: 2 views of the chest were acquired. COMPARISON: Chest radiograph 06/05/2023 FINDINGS: Surgical changes and devices: None. Lungs and pleura: No pleural effusions or pneumothorax. Lungs are clear. Mediastinum: Mediastinal contours appear normal. Heart size is normal. Bones and chest wall: No suspicious bony lesions. Overlying soft tissues appear unremarkable. IMPRESSION: No acute cardiopulmonary process. Reviewed by: Lonny Flynn MD on 07/11/2023 12:22 PM PDT Approved by: Lonny Flynn MD on 07/11/2023 12:22 PM PDT Station ID: [id number]
== END 2023-07-11 09:54 | disposition home or self-care (01) ==
LOC: DI 09:53
PROVIDERS: ATTEND Registered Nurse
DX: R76.11 Nonspecific reaction to tuberculin skin test without active tuberculosis (principal)

== ENCOUNTER 2023-07-12 14:27 | Outpatient (CLI) | payer MEDICAID ==
[2023-07-12 14:56] LABS: BILIRUBIN,URINE NEGATIVE (NEGATIVE); GLUCOSE, URINE (UA) >=1000 mg/dL (NEGATIVE); KETONES,URINE (UA) NEGATIVE (NEGATIVE); LEUKOCYTE ESTERASE, URINE TRACE (NEGATIVE); NITRITE,URINE NEGATIVE (NEGATIVE); OCCULT BLOOD,URINE NEGATIVE (NEGATIVE); PROTEIN,URINE NEGATIVE (NEGATIVE); UROBILINOGEN,URINE 1 (NORMAL) E.U./dL (NORMAL)
[2023-07-12 15:22] LABS: CLARITY,URINE CLEAR (CLEAR)
[2023-07-12 15:39] LABS: BACTERIA,URINE Rare /HPF (None Seen); EPITHELIAL CELLS,UR FEW Transitional /HPF (<= Few); RBC,URINE 0-5 /HPF (0-5); SQUAMOUS EPITHELIAL CELL,UR FEW Squamous (<= Few); WBC,URINE 0-3 /HPF (0-5)
== END 2023-07-12 14:28 | disposition home or self-care (01) ==
LOC: LAB.R 14:27
PROVIDERS: ATTEND Registered Nurse
DX: N39.0 Urinary tract infection, site not specified (principal)
CPT/HCPCS: 81001; 87086

== ENCOUNTER 2023-07-18 19:54 | Outpatient (CLI) | payer MEDICAID | END 2023-07-18 23:59 | disposition left against medical advice (07) | LOC: EMS 19:54 | DX: R40.4 Transient alteration of awareness (principal); R15.9 Full incontinence of feces ==

== ENCOUNTER 2023-09-19 09:55 | Outpatient (CLI) | payer SELFPAY | END 2023-09-19 09:56 | disposition critical access hospital (66) | LOC: EMS 09:55 | DX: R40.4 Transient alteration of awareness (principal); R06.89 Other abnormalities of breathing; F03.911 Unspecified dementia, unspecified severity, with agitation | CPT/HCPCS: A0425; A0429 ==

== ENCOUNTER 2023-09-19 10:00 | Emergency (ER) | payer SELFPAY ==
--- NOTE | 2023-09-19 10:34 | ED Physician Documentation ---
PD HPI ALTERED MENTAL STATUS - Stated complaint Stated Complaint: AMS - Chief complaint Chief Complaint: Neuro - History obtained from History obtained from: Family, EMS - Additional information Additional information: Patient is a 77-year-old female with a history of diabetes and dementia coming from home with a period of unresponsiveness this morning. Patient was normal and at her baseline this morning and came down for breakfast. Short time later not daughter noticed that she was unresponsive for a period of approximately 10 minutes. Per EMS patient has been quite combative and not cooperative. They were able to check her blood sugar which was in the 200s. Patient primarily speaks Yemeni. We did attempt to use a Yemeni entertainment reporter through our entertainment reporter service. Patient did appear to be understanding of the entertainment reporter and would yell back at the screen. She was mostly stating do not talk to me. She did state in clear [place] "I am not sick I am not sick". We did attempt to explain that we were there to help her and were not trying to hurt her. She remained noncooperative and would not answer any direct questions. She also would not cooperate with following any commands. She repeatedly tried to swing at staff members as we tried to assess her. Daughter is reportedly on her way in. Upon daughter's arrival she clarifies the story this morning and states that the period of unresponsiveness was much more briefly less than a minute. She states that when patient woke up she seemed like she was labored with her breathing which is what concerned her. She otherwise states that her mom appears to be at her baseline now. She is combative at times which is normal for her. She has otherwise been acting appropriately in recent days without any illness. Review of Systems Unable to obtain: Dementia, Uncooperative PD PAST MEDICAL HISTORY - Past Medical History Cardiovascular: Hypertension Neuro: Dementia Endocrine/Autoimmune: Type 2 diabetes : Other - Past Surgical History Past Surgical History: Yes Ortho: Hip replacement - Present Medications Home Medications: Ambulatory Orders Medication Instructions Recorded Confirmed Aspirin Chewable [St Austyn 81 mg PO DAILY 12/13/22 06/06/23 Aspirin] Acetaminophen [Tylenol] 2 tab PO Q6H PRN 06/06/23 06/06/23 Atorvastatin Calcium 1 tab PO HS 06/06/23 06/06/23 Bisacodyl Supp [Dulcolax Supp] 1 supp AK PRN PRN 06/06/23 06/06/23 Enoxaparin [Lovenox] 40 mg SUBQ DAILY 06/06/23 06/06/23 Lisinopril/Hydrochlorothiazide 1 tab PO DAILY 06/06/23 06/06/23 [Zestoretic 20-25 mg Tablet] Mineral Oil [Mineral Oil Enema] 1 unit AK PRN PRN 06/06/23 06/06/23 Senna [Senokot] 2 tab PO PRN PRN 06/06/23 06/06/23 hydrALAZINE [Apresoline] 1 tab PO Q12H PRN 06/06/23 06/06/23 metFORMIN [Glucophage] 1 tab PO BID 06/06/23 06/06/23 polyethylene glycoL 3350 [Miralax] 1 packet PO DAILY PRN 06/06/23 06/06/23 Multivitamin W/Minerals [Theragran 1 tab PO DAILYWM tab 06/15/23 M] Potassium Chloride [K-Dur] 10 meq PO DAILYWM tab 06/15/23 Saccharomyces Boulardii [Florastor] 250 mg PO BIDWM cap 06/15/23 Sulfamethox/Trimeth 800/160 1 tab PO BID tab 06/15/23 [Bactrim Ds] Zinc Oxide 20% Oint [Zinc Oxide] 1 applic TOP PRN PRN each 06/15/23 - Allergies Allergies/Adverse Reactions: Allergies Allergy/AdvReac Type Severity Reaction Status Date / Time No Known Drug Allergies Allergy Verified 12/13/22 21:09 - Social History Does the pt smoke?: No Smoking Status: Never smoker Does the pt drink ETOH?: No Does the pt have substance abuse?: No - Immunizations Immunizations are current?: Yes - POLST Patient has POLST: No PD ED PE NORMAL - General General: No acute distress, Well developed/nourished, Other (Alert, unwilling to answer any questions regarding orientation) - HEENT HEENT: Atraumatic, Moist mucous membranes, Pharynx benign - Neck Neck: Supple, no meningeal sign - Cardiac Cardiac: RRR, No murmur - Respiratory Respiratory: No respiratory distress, Clear bilaterally - Abdomen Abdomen: Normal bowel sounds, Soft, Non tender, Non distended - Derm Derm: Warm and dry - Neuro Neuro: No motor deficit, Normal speech. No: Alert and oriented X 3 (Alert but uncooperative in answering any orientation questions. Does have baseline dementia.) Results - Vitals Vitals: Vital Signs - 24 hr 09/19/23 09/19/23 09/19/23 10:09 12:30 12:58 Temperature 36.7 C Heart Rate 102 H 81 Respiratory 16 17 Rate Blood Pressure 154/38 H 146/35 H O2 Saturation 95 100 09/19/23 09/19/23 14:17 15:02 Temperature 36.5 C Heart Rate 79 85 Respiratory 16 17 Rate Blood Pressure 164/46 H O2 Saturation 100 98 Oxygen O2 Source Room air - EKG (time done) 1342 EKG releavant findings:: EKG personally interpreted by author of this note. Relevant findings are: Rate 82, normal sinus rhythm, no STEMI, no ST depressions - Labs Labs: Laboratory Tests 09/19/23 09/19/23 09/19/23 11:30 11:30 13:50 WBC 7.2 RBC 3.89 L Hgb 11.9 L Hct 35.4 L MCV 91.0 MCH 30.6 MCHC 33.6 RDW 12.5 Plt Count 201 MPV 9.3 Neut # (Auto) 5.8 Lymph # (Auto) 0.8 L [place] # (Auto) 0.4 Eos # (Auto) 0.1 Baso # (Auto) 0.1 Absolute Nucleated RBC 0.00 Nucleated RBC % 0.0 Sodium 136 Potassium 4.7 H Chloride 98 L Carbon Dioxide 30 Anion Gap 8.0 BUN 21 H Creatinine 1.1 Estimated GFR (MDRD) 48 L Glucose 301 H Calcium 9.4 Total Bilirubin 0.6 AST 17 ALT 12 Alkaline Phosphatase 75 Total Protein 6.2 L Albumin 3.5 Globulin 2.7 Albumin/Globulin Ratio 1.3 Lipase < 10 L Urine Color YELLOW Urine Clarity CLEAR Urine pH 7.5 Ur Specific [place] 1.010 Urine Protein NEGATIVE Urine Glucose (UA) 500 H Urine Ketones NEGATIVE Urine Occult Blood NEGATIVE Urine Nitrite NEGATIVE Urine Bilirubin NEGATIVE Urine Urobilinogen 1 (NORMAL) Ur Leukocyte Esterase TRACE H Urine RBC None Seen Urine WBC 0-3 Ur Epithelial Cells FEW Transitional Ur Squamous Epith Cells FEW Squamous Amorphous Sediment Few Urine Bacteria Few Urine Casts 0-2 Hyaline Casts Ur Microscopic Review INDICATED Urine Culture Comments INDICATED PD Medical Decision Making - ED course Complexity details: reviewed results, re-evaluated patient, d/w patient, d/w family ED course: Pt with dementia presenting after brief syncopal episode at home which pt has had before. Initially combative but then more cooperative once she was allowed to settle in. Pt was not cooperative with entertainment reporter through ipad. Daughter helped in obtaining some history from pt. She denies headache, CP, SOA, abdominal symptoms. EKG is non ischemic. No symptoms to suggest ACS. Chest XR clear. CBC and chemistries reviewed. Elevated blood glucose but does not appear to be in DKA. UA reviewed - pt denies UTI symptoms. Not overtly convincing for infection. VSS and pt has been at baseline here. Ambulatory without issue. Daughter and pt would like to go home and comfortable with plan for discharge. ADvised on concerning symptoms to return for. 1425 - Reevaluated patient at the bedside with daughter present. Reviewed evaluation. Per daughter patient is at her baseline and ambulated to the [facility]. Patient is eager to go home. Departure - Departure Disposition: Home, Self Care Clinical Impression: Syncope Condition: Stable Instructions: ED Fainting Unkn Cause Comments: Nael was Evaluated after a fainting episode. Please make sure that she is eating and drinking well and taking it slow when changing positions. I would recommend close follow-up with her primary care provider. Her urine was not overwhelmingly convincing for an infection so we are going to send it for a culture. We will notify you if it is abnormal and consider antibiotics at that time. Please return to the emergency department with any new or worsening symptoms. Forms: PCP List Discharge Date/Time: 09/19/23 15:03
--- NOTE | 2023-09-19 10:59 | XRAY Report ---
PROCEDURE: Chest 1 View X-Ray INDICATIONS: syncope TECHNIQUE: One view of the chest was acquired. COMPARISON: Chest x-ray 07/11/2023 FINDINGS: Surgical changes and devices: None. Lungs and pleura: No pleural effusions or pneumothorax. Lungs are clear. Mediastinum: Mediastinal contours appear normal. Heart size is normal. Bones and chest wall: No suspicious bony lesions. Overlying soft tissues appear unremarkable. IMPRESSION: No acute cardiopulmonary process. Reviewed by: Arielle Ortiz MD on 09/19/2023 10:58 AM [facility] Approved by: Arielle Ortiz MD on 09/19/2023 10:58 AM [facility] Station ID: [id number]
[2023-09-19 11:36] LABS: BASOPHILS # (AUTO) 0.1 10^3/uL (0.0-0.1); BASOPHILS % (AUTO) 0.8 %; EOSINOPHILS # (AUTO) 0.1 10^3/uL (0.0-0.7); EOSINOPHILS % (AUTO) 1.3 %; HCT - HEMATOCRIT 35.4 % (37.0-47.0); HGB - HEMOGLOBIN 11.9 g/dL (12.0-16.0); LYMPHOCYTES # (AUTO) 0.8 10^3/uL (1.5-3.5); LYMPHOCYTES % (AUTO) 11.2 %; MEAN CORPUSCULAR HEMOGLOBIN 30.6 pg (27.0-31.0); MEAN CORPUSCULAR HGB CONC 33.6 g/dL (32.0-36.0); MEAN PLATELET VOLUME 9.3 fL (7.9-10.8); MONOCYTES # (AUTO) 0.4 10^3/uL (0.0-1.0); NEUTROPHILS # (AUTO) 5.8 10^3/uL (1.5-6.6); NEUTROPHILS % (AUTO) 80.3 %; PLT - PLATELET COUNT 201 10^3/uL (130-450); RED BLOOD COUNT 3.89 10^6/uL (4.20-5.40); RED CELL DISTRIBUTION WIDTH 12.5 % (12.0-15.0); WHITE BLOOD COUNT 7.2 x10^3/uL (4.8-10.8)
[2023-09-19] MEDS ORDERED: SODIUM CHLORIDE 0.9% 500 ML IV STA (11:43)
[2023-09-19 11:54] LABS: ALBUMIN 3.5 g/dL (3.2-5.5); ALBUMIN/GLOBULIN RATIO 1.3 (1.0-2.2); ALKALINE PHOSPHATASE 75 IU/L (42-121); ALT ALANINE AMINOTRANSFERASE 12 IU/L (10-60); AST ASPARTATE AMINOTRANSFERASE 17 IU/L (10-42); BILIRUBIN,TOTAL 0.6 mg/dL (0.2-1.0); BUN - BLOOD UREA NITROGEN 21 mg/dL (6-20); CALCIUM 9.4 mg/dL (8.5-10.3); CARBON DIOXIDE - CO2 30 mmol/L (21-32); CHLORIDE 98 mmol/L (101-111); CREATININE 1.1 mg/dL (0.6-1.3); GFR - MDRD 48 (>89); GLUCOSE 301 mg/dL (74-104); POTASSIUM 4.7 mmol/L (3.5-4.5); SODIUM 136 mmol/L (135-145); TOTAL PROTEIN 6.2 g/dL (6.4-8.9)
[2023-09-19 11:57] LABS: LIPASE < 10 U/L (11-82)
[2023-09-19 13:58] LABS: BILIRUBIN,URINE NEGATIVE (NEGATIVE); GLUCOSE, URINE (UA) 500 mg/dL (NEGATIVE); KETONES,URINE (UA) NEGATIVE (NEGATIVE); LEUKOCYTE ESTERASE, URINE TRACE (NEGATIVE); NITRITE,URINE NEGATIVE (NEGATIVE); OCCULT BLOOD,URINE NEGATIVE (NEGATIVE); PH,URINE 7.5 PH (5.0-7.5); PROTEIN,URINE NEGATIVE (NEGATIVE); UROBILINOGEN,URINE 1 (NORMAL) E.U./dL (NORMAL)
[2023-09-19 14:07] LABS: CLARITY,URINE CLEAR (CLEAR)
[2023-09-19 14:08] LABS: AMORPHOUS SEDIMENT,UR Few /LPF; BACTERIA,URINE Few /HPF (None Seen); CASTS, URINE 0-2 Hyaline Casts /LPF; EPITHELIAL CELLS,UR FEW Transitional /HPF (<= Few); RBC,URINE None Seen /HPF (0-5); SQUAMOUS EPITHELIAL CELL,UR FEW Squamous (<= Few); WBC,URINE 0-3 /HPF (0-5)
[2023-09-19 15:07] VITALS: BP 164/46; O2SAT 98
== END 2023-09-19 15:03 | disposition home or self-care (01) ==
LOC: EDUNIT# → ED 10:00
DX: R55 Syncope and collapse (principal); F03.90 Unspecified dementia, unspecified severity, without behavioral disturbance, psychotic disturbance, mood disturbance, and anxiety; I10 Essential (primary) hypertension; E11.9 Type 2 diabetes mellitus without complications; Z79.82 Long term (current) use of aspirin; Z79.899 Other long term (current) drug therapy; Z79.01 Long term (current) use of anticoagulants; Z79.84 Long term (current) use of oral hypoglycemic drugs
CPT/HCPCS: 36415; 80053; 81001; 81003; 83690; 85025; 87086; 93005; 99284

== ENCOUNTER 2024-04-21 22:13 | Outpatient (CLI) | payer MEDICAID | END 2024-04-21 23:59 | disposition critical access hospital (66) | LOC: EMS 22:13 | DX: M25.552 Pain in left hip (principal); M79.652 Pain in left thigh; W18.30XA Fall on same level, unspecified, initial encounter; Y92.002 Bathroom of unspecified non-institutional (private) residence as the place of occurrence of the external cause; Z96.642 Presence of left artificial hip joint | CPT/HCPCS: A0425; A0429; A0999 ==

== ENCOUNTER 2024-04-21 22:32 | Emergency (ER) | payer MEDICAID, OTHER ==
[2024-04-21 23:05] LABS: BASOPHILS % (AUTO) 0.4 %; EOSINOPHILS # (AUTO) 0.2 10^3/uL (0.0-0.7); EOSINOPHILS % (AUTO) 1.8 %; HCT - HEMATOCRIT 35.9 % (37.0-47.0); LYMPHOCYTES # (AUTO) 1.4 10^3/uL (1.5-3.5); LYMPHOCYTES % (AUTO) 17.3 %; MEAN CORPUSCULAR HEMOGLOBIN 30.2 pg (27.0-31.0); MEAN CORPUSCULAR HGB CONC 33.4 g/dL (32.0-36.0); MEAN CORPUSCULAR VOLUME 90.4 fL (81.0-99.0); MEAN PLATELET VOLUME 9.2 fL (7.9-10.8); MONOCYTES # (AUTO) 0.4 10^3/uL (0.0-1.0); MONOCYTES % (AUTO) 5.3 %; NEUTROPHILS % (AUTO) 74.1 %; PLT - PLATELET COUNT 153 10^3/uL (130-450); RED BLOOD COUNT 3.97 10^6/uL (4.20-5.40); RED CELL DISTRIBUTION WIDTH 12.6 % (12.0-15.0); WHITE BLOOD COUNT 8.1 x10^3/uL (4.8-10.8)
[2024-04-21 23:10] LABS: PT - PROTHROMBIN TIME 11.6 secs (9.9-12.6)
[2024-04-21 23:25] LABS: ALBUMIN 3.8 g/dL (3.2-5.5); BILIRUBIN,TOTAL 0.7 mg/dL (0.2-1.0); CALCIUM 9.3 mg/dL (8.5-10.3); CREATININE 0.9 mg/dL (0.6-1.3); TOTAL PROTEIN 5.7 g/dL (6.4-8.9)
--- NOTE | 2024-04-21 23:54 | ED Physician Documentation ---
PD HPI LOWER EXT INJURY - Stated complaint Stated Complaint: FALL/L HIP PX - Chief complaint Chief Complaint: Trauma Ext - History obtained from History obtained from: Patient (language barrier limits HPI/ROS), Family (brief d/w patient's daughter (Kirsten Hawk) over phone), EMS - Additional information Additional information: HPI is predominantly from EMS. Patient is very limited in what she can co ntribute to HPI/ROS due to language barrier and no available translation services via [employer] for this patient's [place] tongue. BIBA. Patient lives at home with her daughter. Patient had unwitnessed fall approximately 1 hour prior to arrival, complains of left hip pain. I spoke with patient's daughter over the phone and she says she heard a sound consistent with patient falling to the floor. She recently checked on her, found she was on the ground but awake and at her baseline mental state. The daughter says that the patient was unable to bear any weight on left lower extremity but, nonetheless, pleaded with her daughter to not call the ambulance for nearly an hour for finally relenting due to coming to the realization that she was still unable to bear any weight on her left leg. Patient does not take any blood-thinning medications. Daughter says that the patient had a left hip replacement last June or July (2022) in [facility]. PD PAST MEDICAL HISTORY - Past Medical History Cardiovascular: Hypertension Neuro: Dementia Endocrine/Autoimmune: Type 2 diabetes : Other - Past Surgical History Past Surgical History: Yes Ortho: Hip replacement - Present Medications Home Medications: Ambulatory Orders Medication Instructions Recorded Confirmed Aspirin Chewable [[place] Austyn 81 mg PO DAILY 12/13/22 06/06/23 Aspirin] Acetaminophen [Tylenol] 2 tab PO Q6H PRN 06/06/23 06/06/23 Atorvastatin Calcium 1 tab PO HS 06/06/23 06/06/23 Bisacodyl Supp [Dulcolax Supp] 1 supp WI PRN PRN 06/06/23 06/06/23 Enoxaparin [Lovenox] 40 mg SUBQ DAILY 06/06/23 06/06/23 Lisinopril/Hydrochlorothiazide 1 tab PO DAILY 06/06/23 06/06/23 [Zestoretic 20-25 mg Tablet] Mineral Oil [Mineral Oil Enema] 1 unit WI PRN PRN 06/06/23 06/06/23 Senna [Senokot] 2 tab PO PRN PRN 06/06/23 06/06/23 hydrALAZINE [Apresoline] 1 tab PO Q12H PRN 06/06/23 06/06/23 metFORMIN [Glucophage] 1 tab PO BID 06/06/23 06/06/23 polyethylene glycoL 3350 [Miralax] 1 packet PO DAILY PRN 06/06/23 06/06/23 Multivitamin W/Minerals [Theragran 1 tab PO DAILYWM tab 06/15/23 M] Potassium Chloride [K-Dur] 10 meq PO DAILYWM tab 06/15/23 Saccharomyces Boulardii [Florastor] 250 mg PO BIDWM cap 06/15/23 Sulfamethox/Trimeth 800/160 1 tab PO BID tab 06/15/23 [Bactrim Ds] Zinc Oxide 20% Oint [Zinc Oxide] 1 applic TOP PRN PRN each 06/15/23 - Allergies Allergies/Adverse Reactions: Allergies Allergy/AdvReac Type Severity Reaction Status Date / Time No Known Drug Allergies Allergy Verified 12/13/22 21:09 - Social History Does the pt smoke?: No Smoking Status: Never smoker Does the pt drink ETOH?: No Does the pt have substance abuse?: No - Immunizations Immunizations are current?: Yes - POLST Patient has POLST: No PD ED PE NORMAL - Vitals Vital signs reviewed: Yes - General General: No acute distress, Well developed/nourished, Other (awake, alert. gives full name, but unable to give location or year (unclear if this is due to language barrier)) - Neck Neck: No bony TTP - Cardiac Cardiac: RRR, No murmur - Respiratory Respiratory: No respiratory distress, Clear bilaterally - Abdomen Abdomen: Soft, Non tender - Extremities Extremities: No deformity, No tenderness to palpate, No edema, Other (at times patient seems to indicate left inguinal pain with ROM at left hip, but on other evaluations I am able to gently ROM left knee and hip without exacerbation of apparent discomfort. ) Results - Vitals Vitals: Vital Signs - 24 hr 04/21/24 04/21/24 04/22/24 22:36 23:35 01:00 Temperature 35.9 C L Heart Rate 77 72 61 Respiratory 16 16 16 Rate Blood Pressure 205/70 H 174/68 H 128/115 H O2 Saturation 98 99 99 04/22/24 04/22/24 05:00 07:33 Temperature 36.2 C L Heart Rate 70 73 Respiratory 18 22 Rate Blood Pressure 144/61 H 133/104 H O2 Saturation 98 97 Oxygen O2 Source Room air - Labs Labs: Laboratory Tests 04/21/24 04/21/24 04/21/24 23:00 23:00 23:00 WBC 8.1 RBC 3.97 L Hgb 12.0 Hct 35.9 L MCV 90.4 MCH 30.2 MCHC 33.4 RDW 12.6 Plt Count 153 MPV 9.2 Neut # (Auto) 6.0 Lymph # (Auto) 1.4 L Sutton # (Auto) 0.4 Eos # (Auto) 0.2 Baso # (Auto) 0.0 Absolute Nucleated RBC 0.00 Nucleated RBC % 0.0 PT 11.6 INR 1.0 Sodium 130 L Potassium 4.0 Chloride 95 L Carbon Dioxide 32 Anion Gap 3.0 L BUN 25 H Creatinine 0.9 Estimated GFR (MDRD) 60 L Glucose 191 H Calcium 9.3 Total Bilirubin 0.7 AST 23 ALT 21 Alkaline Phosphatase 64 Total Protein 5.7 L Albumin 3.8 Globulin 1.9 L Albumin/Globulin Ratio 2.0 - Rads (name of study) left hip xrays Relevant Findings:: Prelim report reviewed, See rad report left femur xrays Relevant Findings:: Prelim report reviewed, See rad report left hip/femur CT Relevant Findings:: Prelim report reviewed, See rad report PD Medical Decision Making - ED course Complexity details: reviewed results, re-evaluated patient, considered differential ED course: Initially, plain-film x-rays are performed on the left hip and left femur; these are unrevealing. There is no evidence on these studies of acute injury nor displacement of the hardware. I asked ED RN to then try to get patient to stand and weight-bear. Unfortunately, ED RN says that even trying to get the patient to position h erself to sit on the edge of the bed was met with great resistance from patient, the patient even swatting at the ED RN. I was not in the room when this occurred, but the ED RN suspects it was due to pain, as it seemed to elicit the most negative reaction from the patient when the left hip was removed. Thus, I then ordered a CT of the left hip and left femur. On this study, the radiologist interpretation includes "streak artifact from left hip hemiarthroplasty preclude accurate evaluation of the neighboring structures. Questionable nondisplaced fracture of the medial cortex of left acetabulum." It was at this point that I attempted some range of motion of the patient's left knee and hip while she was lying right-side decubitus on the stretcher. I was able to undertake moderate amount of range of motion of the knee and the left hip without apparent discomfort on the part of the patient. Thus, I then asked ED RN to try once again to see if the patient would be able to at least stand at the bedside. Unfortunately, ED RN says that the patient was not able to bear any weight whatsoever on the left leg; she says that, at one point, there was a nurse on either side holding the patient up just to prevent her from falling as she would not bear any weight on the left lower extremity. She was placed back in her bed. I then contacted on-call orthopedics for [facility] (Dr. Rui Rey). Discussed this case with him and read to him the radiologist's interpretation of the CT of the left lower extremity. Dr. Rey says that even if this finding represents a fracture of the left acetabulum, there would not be any surgical intervention indicated and that she would need pain control and bedrest until she is able to tolerate weight-bearing. Until then, she will need placement, as she lives with her daughter who will not be able to take care of this patient at home in this state. SW consulted and this consult is pending at the end of my shift. Care of patient is turned over to the oncoming ED physician (Dr. Molina) at end of my shift Departure - Departure Forms: PCP List
--- NOTE | 2024-04-22 00:39 | XRAY Report ---
PROCEDURE: Femur 2+V LT INDICATIONS: fall hip inj. TECHNIQUE: 5 views of the femur were acquired. COMPARISON: CT pelvis 06/12/2023. FINDINGS: Bones: Status post left hip arthroplasty with prosthetic elements in appropriate position. Since of hardware complication. No fractures or dislocations. No suspicious bony lesions. Soft tissues: No suspicious soft tissue calcifications or masses. Vascular calcifications. IMPRESSION: No acute bony abnormality. Status post left hip arthroplasty in similar alignment compared to prior w ithout evidence of hardware complication. Reviewed by: Mary Parsons MD, PhD on 04/22/2024 12:38 AM PDT Approved by: Mary Parsons MD, PhD on 04/22/2024 12:38 AM PDT Station ID: [id number]
--- NOTE | 2024-04-22 00:40 | XRAY Report ---
PROCEDURE: Hip w/Pelvis 2-3V LT INDICATIONS: fall hip inj TECHNIQUE: Single AP view of the pelvis and one view of the left hip. COMPARISON: Left femur radiographs 04/21/2024. FINDINGS: Bones: No fractures or dislocations. No suspicious bony lesions. Status post left hip arthroplast y with prosthetic valves in appropriate position. Soft tissues: No suspicious soft tissue calcifications or masses. IMPRESSION: No acute bony abnormality. Reviewed by: Mary Parsons MD, PhD on 04/22/2024 12:39 AM PDT Approved by: Mary Parsons MD, PhD on 04/22/2024 12:39 AM PDT Station ID: [id number]
[2024-04-22] MEDS: KETOROLAC 15 MG/ML VIAL IVP STA (03:07)
[2024-04-22] MEDS: ACETAMINOPHEN 325 MG TABLET PO STA (03:07)
--- NOTE | 2024-04-22 08:11 | CT Report ---
PROCEDURE: Lower Extremity LT WO INDICATIONS: unable to weight-bear LLE after fall TECHNIQUE: Noncontrast 3-mm axial sections acquired from the distal tibial shaft to the talar dome, with coronal and sagittal reformats. For radiation dose reduction, the following was used: automated exposure c ontrol, adjustment of mA and/or kV according to patient size. COMPARISON: 04/21/2024 radiographs FINDINGS: Image quality: Diagnostic, but limited due to metallic artifact Bones: Subtle nondisplaced acetabular fracture, primarily transverse. Left hip arthroplasty in place. There is heterotopic ossification around the hardware. No femoral fracture identified. Partially see n knee degenerative changes. No pubic diastases. Hip alignment appears maintained. Heterogeneous marrow attenuation particularly seen in the femoral metaphysis and distal shaft. Soft tissues: Distended bladder. Calcifications of the reproductive organs likely senescent calcifica tions. These are not well assessed. Lower gluteal areas of edema without drainable fluid collection i dentified. IMPRESSION: Nondisplaced acetabular fracture. No hip arthroplasty dislocation. Irregularity of the bone surround ing the hardware with ossification, likely postsurgical. Heterogeneous marrow attenuation of distal femoral shaft and metaphysis, possibly senescent changes. Consider further evaluation if there is a history of primary malignancy. Distended urinary bladder. No significant discrepancy from the preliminary report. Reviewed by: David Collazo MD on 04/22/2024 8:09 AM PDT Approved by: David Collazo MD on 04/22/2024 8:09 AM PDT Station ID: [id number]
[2024-04-22] MEDS: ACETAMINOPHEN 325 MG TABLET PO SCH (09:48)
[2024-04-22] MEDS ORDERED: ONDANSETRON 4 MG/2 ML VIAL IVP PRN (15:55)
[2024-04-22] MEDS ORDERED: ACETAMINOPHEN 500 MG TABLET PO PRN (15:55)
--- NOTE | 2024-04-22 15:55 | ED Physician Documentation ---
ED Addendum - Addendum Addendum: 04/22/24 15:53 The patient did have small meal today. We are encouraging fluids. Physical therapy and Occupational Therapy did meet with the patient. She was able to stand with discomfort but bear weight and take 1 or 2 steps with support of a walker. She felt slightly lightheaded and they did notice her vital signs showed a slight drop in her postural systolic pressure. She did not have any near syncope. We will encourage fluids. Social work is talked with the patient and family members (mainly through the family member due to language). The patient has been accepted at [facility] for rehab and care. However her insurance needs to review and see if they will pay for it. Otherwise I guess she does have Medicaid as a supplement. At this point no disposition today per social work. The insurance will need 1 or 2 days for review and approval. [facility] will be holding the bed for the patient however as it should we are hopeful. Meanwhile regular ED boarding orders will be written.
--- NOTE | 2024-04-22 17:47 | PHARMACY PROGRESS NOTE ---
- Best Possible Medication History Admit Date and Time: Processed by: Pharmacy Medications reviewed in ED?: Yes Medication History completed: Yes Patient Interview: Pt unable to participate Secondary Source(s): Caregiver, Insurance records (MED REC COMPLETED W/ CAREGIVER. MEDICATIONS REMOVED FROM MED LIST INCLUDE LOVENOX, HYDRALAZINE, LIS/HCTZ, METORMIN, KCL, PROBIOTIC, SENNA, BACTRIM, ZINC OXIDE) As the person ultimately responsible for medication therapy, providers are able to order a medication from an existing home medication list in [facility] via the "Reconcile Routine" prior to Confirmation of that medication by technical support professional. Such practice is discouraged except when the physician, in their clinical judgment, deems that a medical need exists for a medication without regard to previous use.
[2024-04-23 05:00] LABS: BASOPHILS % (AUTO) 0.4 %; EOSINOPHILS # (AUTO) 0.4 10^3/uL (0.0-0.7); EOSINOPHILS % (AUTO) 3.8 %; HCT - HEMATOCRIT 35.6 % (37.0-47.0); HGB - HEMOGLOBIN 12.2 g/dL (12.0-16.0); LYMPHOCYTES # (AUTO) 1.8 10^3/uL (1.5-3.5); LYMPHOCYTES % (AUTO) 18.1 %; MEAN CORPUSCULAR HEMOGLOBIN 30.4 pg (27.0-31.0); MEAN CORPUSCULAR HGB CONC 34.3 g/dL (32.0-36.0); MEAN CORPUSCULAR VOLUME 88.8 fL (81.0-99.0); MEAN PLATELET VOLUME 9.2 fL (7.9-10.8); MONOCYTES # (AUTO) 0.7 10^3/uL (0.0-1.0); MONOCYTES % (AUTO) 6.6 %; NEUTROPHILS # (AUTO) 7.1 10^3/uL (1.5-6.6); NEUTROPHILS % (AUTO) 70.8 %; PLT - PLATELET COUNT 138 10^3/uL (130-450); RED BLOOD COUNT 4.01 10^6/uL (4.20-5.40); RED CELL DISTRIBUTION WIDTH 12.6 % (12.0-15.0)
[2024-04-23 05:17] LABS: CALCIUM 9.2 mg/dL (8.5-10.3); CREATININE 0.9 mg/dL (0.6-1.3); POTASSIUM 3.8 mmol/L (3.5-4.5)
[2024-04-23] MEDS: PANTOPRAZOLE 40 MG TABLET PO SCH (06:35)
--- NOTE | 2024-04-23 12:25 | ED Physician Documentation ---
ED Addendum - Addendum Addendum: 04/23/24 Patient care assumed at shift change. Patient is boarding awaiting placement by social work. During My evaluation no family is present but daughter was here earlier. Patient is primarily [place] speaking. Smiling. No issues identified by RN.
--- NOTE | 2024-04-23 17:37 | ED Physician Documentation ---
ED Addendum - Addendum Addendum: 04/23/24 17:37 Told by the social research assistant at this time that due to some roadblocks she will not be able to be placed today. Potentially tomorrow.
--- NOTE | 2024-04-24 00:16 | ED Physician Documentation ---
ED Addendum - Addendum Addendum: 04/24/24 00:15 Patient was endorsed to me by Dr. Joyce, currently boarding with [facility] for nonoperative acetabular fracture. Social work consult placed. Plan to endorsed to oncoming daytime EDMD at 7 AM shift change.
[2024-04-24] MEDS: ATORVASTATIN 40 MG TABLET PO SCH (10:13)
[2024-04-24] MEDS: ASPIRIN CHEW 81 MG TABLET PO SCH (10:13)
--- NOTE | 2024-04-24 15:16 | ED Physician Documentation ---
ED Addendum - Addendum Addendum: 04/24/24 15:14 Physical therapy had worked with the patient last couple of days. She does require assistance to get up and ambulate. Social work Yam[place] talked with the patient through her daughter and also with the daughter individually. The goal is apparently short-term management of some of the pains and getting assistance while improving from a fall injury. The daughter's intention along with the patient is to have the patient at home and not in a long-term care facility. With that in mind, the social work was looking at alternatives to placement at this point. Alternatives would be home health with higher level of assistance and care. The daughter would be amenable to that. At this point we are still awaiting the seen higher level of assistance and care at home versus a placement.
[2024-04-25 11:10] VITALS: BP 169/78; O2SAT 98
== END 2024-04-25 11:05 | disposition home or self-care (01) ==
LOC: EDUNIT# → ED 22:32
DX: S32.455A Nondisplaced transverse fracture of left acetabulum, initial encounter for closed fracture (principal); W19.XXXA Unspecified fall, initial encounter; Z96.642 Presence of left artificial hip joint; F03.90 Unspecified dementia, unspecified severity, without behavioral disturbance, psychotic disturbance, mood disturbance, and anxiety; R41.0 Disorientation, unspecified; Z74.01 Bed confinement status; Z76.4 Other boarder to healthcare facility
CPT/HCPCS: 36415; 73502; 73552; 73700; 80048; 80053; 85025; 85610; 96374; 97162; 97167; 97530; 97535; 99284; A9270

== ENCOUNTER 2024-04-25 10:59 | Outpatient (CLI) | payer MEDICAID | END 2024-04-25 23:59 | disposition home or self-care (01) | LOC: EMS 10:59 | PROVIDERS: ATTEND Emergency Medicine | DX: R41.0 Disorientation, unspecified (principal); Z74.01 Bed confinement status; F03.90 Unspecified dementia, unspecified severity, without behavioral disturbance, psychotic disturbance, mood disturbance, and anxiety | CPT/HCPCS: A0425; A0428 ==

== ENCOUNTER 2024-06-06 08:00 | Outpatient (CLI) | payer MEDICAID | END 2024-06-06 23:59 | disposition home or self-care (01) | LOC: LAB.N 08:00 | PROVIDERS: ATTEND Family Medicine | DX: R82.90 Unspecified abnormal findings in urine (principal) | CPT/HCPCS: 87086; 87181 ==

== ENCOUNTER 2024-07-16 08:00 | Outpatient (CLI) | payer MEDICAID | END 2024-07-16 23:59 | disposition home or self-care (01) | LOC: LAB.R 08:00 | PROVIDERS: ATTEND Family Medicine | DX: N30.00 Acute cystitis without hematuria (principal) | CPT/HCPCS: 87086 ==